=== PATIENT | female | born 1965 | race Caucasian/White ===

== ENCOUNTER 2019-12-21 08:49 | Outpatient (CLI) | payer OTHER, SELFPAY ==
--- NOTE | 2020-01-02 13:08 | SLEEP_ITS ---
Basic nocturnal polysomnogram. DATE OF STUDY: 12/21/2019 ORDERING PHYSICIAN: Dr. Earl Bray. REASON FOR THE STUDY: Loud snoring with witnessed apneas. HISTORY: This patient is a 53-year-old female, 66 inches tall, weighing 254 pounds with a body mass index of 41. She has a history of very loud snoring with witnessed apneas. She was tested 10 years ago. There is a family history with her father having sleep apnea. She has used Xanax and other sleeping pills in the past for sleep issues, but not recently. She occasionally awakens from sleep feeling short of breath, rarely feels awake at night with heartburn and belching, frequently snores and it is constantly loud enough that others complain about it. She frequently has trouble sleeping with a cold. She occasionally gasps for breath at night. She occasionally has breathing problems reported to her by others. She does not sweat excessively at night. She occasionally notices her heart pounding irregularly at night. She never falls asleep during the day, never involuntarily, and never while driving. She does not have loss of muscle tone with strong emotion and does not have daytime difficulty due to excessive sleepiness. 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 She does not have paralysis on waking or falling asleep and does not have vivid dreamlike scenes upon awakening or falling asleep. She is never afraid to go to sleep. She constantly has dreams and remembers them. She occasionally has racing thoughts, feelings of sadness, depression, and anxiety. She never has nightmares. She occasionally has muscular tension. She never notices parts of her body jerking and she does not kick at night. She does not have crawly achy feelings in her legs. She rarely has leg pain at night. She rarely has morning jaw pain. She occasionally grinds her teeth at night. She rarely is bothered by pain during the day and is not bothered or awakened by pain at night. She occasionally wakes up feeling stiff in the morning, but does not wake up with sore achy muscles or pain in her neck or spine. She has stomach problems, memory problems, tension headaches, palpitations, and often feels depressed. She goes to bed at 10:30 p.m. on the weekdays and it takes a variable amount of time to fall asleep. She typically wakes twice during the night, might go to the bathroom. She awakens in the morning at 6:45 a.m. During the weekends, she goes to bed at 11 p.m. and wakes at 10 a.m., so she does get recovery sleep. She does take naps. A short nap may be refreshing. She feels better in the mornings than other times of day. MEDICAL COMORBIDITIES: Pulmonary hypertension, diabetes with systemic hypertension, hyperlipidemia associated with diabetes type 2, history of obstructive sleep apnea syndrome, stroke, hypertriglyceridemia, palpitations, morbid obesity. MEDICATIONS: 1. Baby aspirin. 2. Omeprazole. 3. Nifedipine. 4. Sertraline. 5. Atorvastatin. 6. Metformin. 7. Aripiprazole. 8. Lisinopril. 9. Montelukast. HABITS: Never smoked tobacco. She does drink caffeine. She does not drink alcohol. DESCRIPTION OF THE STUDY: On the Burg[place] Sleepiness Scale, her score is 6. This was conducted as a full night basic nocturnal polysomnogram using the [employer] multiple channel system including EOG, EEG, submental EMG, EKG, nasal and oral airflow using thermistors and nasal pressure sensors, chest and abdominal belts, body position data and pulse oximetry. The study was scored using CMS guidelines. Duration of the study was 438.7 minutes. Sleep time was 393.5 minutes. Sleep efficiency was 89.7%. Sleep latency was rather short, 5.9 minutes. REM latency was 244.5 minutes, prolonged. She had 28 awakenings. Sleep architecture showed 9.1% wakefulness after slee
== END 2019-12-21 08:50 | disposition home or self-care (01) ==
PROVIDERS: PCP Family Medicine; Visit Provider Internal Medicine Cardiovascular Disease
DX: G47.33 Obstructive sleep apnea (adult) (pediatric) (principal); E11.9 Type 2 diabetes mellitus without complications; G25.9 Extrapyramidal and movement disorder, unspecified; G47.69 Other sleep related movement disorders; Z68.41 Body mass index [BMI] 40.0-44.9, adult; I10 Essential (primary) hypertension; I27.20 Pulmonary hypertension, unspecified; E78.5 Hyperlipidemia, unspecified
CPT/HCPCS: 95810

== ENCOUNTER 2021-12-12 12:18 | Outpatient (CLI) | payer OTHER, SELFPAY ==
--- NOTE | ~2021-12-12 | XR_ITS ---
XR knee LT min 4V 12/12/2021 12:46 Indication: Left knee pain Procedure: 4 views left knee Comparison: No prior studies for comparison. Findings: Mild tricompartment osteoarthritis. No fracture, subluxation or dislocation. No joint effus ion. No foreign bodies. Impression: 1: Mild osteoarthritis of the left knee. Reviewed, dictated and finalized at location A. ING CLERK Impression: 1: Mild osteoarthritis of the left knee.
== END 2021-12-12 12:19 | disposition home or self-care (01) ==
LOC: ANHIMG 12:23
PROVIDERS: PCP Family Medicine; Visit Provider Nurse Practitioner
DX: M17.12 Unilateral primary osteoarthritis, left knee (principal)
CPT/HCPCS: 73564

== ENCOUNTER → 2022-01-09 00:40 | Outpatient (CLI) | payer OTHER, SELFPAY ==
[2022-01-09 11:53] LABS: SARS-CoV-2 RNA PCR Negative
== END ==
PROVIDERS: PCP Family Medicine; Visit Provider Family Medicine
DX: R68.89 Other general symptoms and signs (principal); Z20.822 Contact with and (suspected) exposure to COVID-19
CPT/HCPCS: C9803; U0003; U0005

== ENCOUNTER 2022-03-29 14:38 | Emergency (ER) | payer OTHER, SELFPAY ==
--- NOTE | 2022-03-29 14:38 | ED.SKABFB ---
HPI - Skin/Abscess/Foreign Bdy General Chief complaint: Skin/Abscess/Foreign Body Stated complaint: bite dc, left eye swollen Time Seen by Provider: 03/29/22 14:38 Source: patient Mode of arrival: ambulatory Limitations: no limitations History of Present Illness HPI narrative: Ms. Da Silva is a 56-year-old female patient presenting to the clinic today stating that she got bit under her left eye and her left eye is swollen. She reports that she did not see an insect bite her however this occurred 9 days ago. She reports that her swelling is getting worse to have an itchy rash. Related Data Home Medications Medication Instructions Recorded Confirmed aripiprazole 5 mg tablet 5 mg PO QHS 07/08/21 03/29/22 aspirin 325 mg tablet 325 mg PO DAILY 07/08/21 03/29/22 fexofenadine 180 mg tablet 180 mg PO DAILY 07/08/21 03/29/22 (Alexandrea Allergy) metformin 500 mg tablet 1,000 mg PO DAILY 07/08/21 03/29/22 montelukast 10 mg tablet 10 mg PO DAILY 07/08/21 03/29/22 omeprazole 40 mg capsule,delayed 20 mg PO DAILY 07/08/21 03/29/22 release sertraline 100 mg tablet 100 mg PO BID 07/08/21 03/29/22 Allergies Allergy/AdvReac Type Severity Reaction Status Date / Time Penicillins Allergy Unknown unknown Verified 03/29/22 14:47 Review of Systems Review of Systems: Pertinent positives per HPI. Patient denies any fever, chills, headache, visual changes, dizziness, cough, runny nose, sore throat, shortness of breath, chest pain, palpitations, nausea, vomiting, diarrhea, constipation, abdominal pain, or any urinary issues. [facility] Past Medical History Medical History Current moderate episode of major depressive disorder without prior episode Essential hypertension History of CVA (cerebrovascular accident) Hyperlipemia Sleep apnea Family History Family History Father Diabetes mellitus Family history of Parkinson's disease, Onset Age: 86 CAD (coronary artery disease) Mother Cerebrovascular accident Social History Social History (Reviewed 03/29/22 @ 14:39 by GAURANG Fink Smoking status: Never smoker Second hand tobacco smoke exposure: No Alcohol intake: never Comments At the time of my signature, I reviewed and agree with the nursing past medical, surgical, social, and family history. There is no relevant family history pertinent to the patient complaint. Exam Narrative: General: Well-developed, well nourished, in no apparent distress Head: Normocephalic, atraumatic. Cardio: Regular rate and rhythm, s1 and s2 normal, no murmur appreciated. Resp: Clear to auscultation bilaterally, no rhonchi, rales, wheezing or rubs. Integumentary: [place], warm, and dry, possible insect bite that has yellowish-brown scabbing to the center with surrounding redness and swelling around the periorbital area and left upper cheek. Tender to palpation with mild induration. No abscess formation palpable. Course Course Emergency Course: Portions of this record may have been created with voice recognition software. Level of Care: Express Care Visit Vital Signs Vital signs: Vital signs reviewed MDM - Skin/Abscess/Foreign Bdy MDM Narrative Medical decision making narrative: At the time of visit patient is resting comfortably on the exam table. I suspect patient has a allergic reaction to an insect bite to the left cheek/periorbital area. However since this is been ongoing for 8 days and she has edema around the orbit I want to treat for secondary infection and give her a prescription for doxycycline and prednisone. Supportive measures were discussed with the patient she voiced understanding of discharge instructions and agrees to the treatment plan. Differential Diagnosis Differential diagnosis: Likely insect bites and other (Allergic reaction to insect bite, skin infection, periorbital
[2022-03-29 14:41] VITALS: BP 108/58; PULSE 78; RESP 18; TEMP 36.5; O2SAT 99
== END 2022-03-29 14:56 | disposition home or self-care (01) ==
PROVIDERS: Emergency Provider Nurse Practitioner Family
DX: S00.262A Insect bite (nonvenomous) of left eyelid and periocular area, initial encounter (principal); W57.XXXA Bitten or stung by nonvenomous insect and other nonvenomous arthropods, initial encounter; I10 Essential (primary) hypertension; E78.5 Hyperlipidemia, unspecified; G47.30 Sleep apnea, unspecified; Z86.73 Personal history of transient ischemic attack (TIA), and cerebral infarction without residual deficits; F32.9 Major depressive disorder, single episode, unspecified
CPT/HCPCS: 99213; G0463

== ENCOUNTER 2022-04-20 07:38 | Outpatient (RCR) | payer OTHER, SELFPAY ==
[2022-04-13 13:11] VITALS: BMI 38.9
== END 2022-06-28 08:27 | disposition home or self-care (01) ==
LOC: ANHWOC 07:38
PROVIDERS: PCP Family Medicine; Visit Provider Nurse Practitioner
DX: L03.211 Cellulitis of face (principal); S01.402D Unspecified open wound of left cheek and temporomandibular area, subsequent encounter
CPT/HCPCS: 99211; 99213; A9270; G0463

== ENCOUNTER 2022-06-17 15:12 | Emergency (ER) | payer OTHER, SELFPAY ==
[2022-06-17 15:25] VITALS: BP 109/73; PULSE 81; RESP 16; TEMP 37.2; O2SAT 98
[2022-06-17 15:32] VITALS: BP 109/73; PULSE 81; RESP 16; TEMP 37.2; O2SAT 98
--- NOTE | 2022-06-17 15:32 | ED.GENADULT ---
HPI - General Adult General Chief complaint: Upper Respiratory Infection Stated complaint: congestion, runny nose, coughing phlem History of Present Illness HPI narrative: Mrs Da Silva is a 56 y/o female. PMHx GERD, HTN, Dyslipidemia, DM II. Presents to [facility] today with acute complaints of nasal congestion, maxillary facial pressure, throat 'irritated', as well as productive cough for the past 3 days. No fever. No dysphagia or drooling. No chest pain, palpitations, wheezing, dyspnea. 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 She is without additional acute c/o upon PE. Related Data Home Medications Medication Instructions Recorded Confirmed aspirin 325 mg tablet 325 mg PO DAILY 07/08/21 04/13/22 fexofenadine 180 mg tablet 180 mg PO DAILY 07/08/21 04/13/22 (Alexandrea Allergy) metformin 500 mg tablet 1,000 mg PO DAILY 07/08/21 04/13/22 montelukast 10 mg tablet 10 mg PO DAILY 07/08/21 04/13/22 omeprazole 40 mg capsule,delayed 20 mg PO DAILY 07/08/21 04/13/22 release sertraline 100 mg tablet 100 mg PO BID 07/08/21 04/13/22 aripiprazole 5 mg tablet 15 mg PO QHS 04/02/22 04/13/22 fluoxetine 40 mg capsule mg 06/17/22 Allergies Allergy/AdvReac Type Severity Reaction Status Date / Time Penicillins Allergy Unknown unknown Verified 06/17/22 15:22 Review of Systems Review of Systems: CONSTITUTIONAL: Denies fever, chills, sweats. EYES: Denies visual changes, redness, discharge. ENT: Positive rhinorrhea, congestion. No sore throat, otalgia. CARDIOVASCULAR: Denies chest pain, palpitations, edema. RESPIRATORY: Denies dyspnea, wheezing. Positive cough GASTROINTESTINAL: Denies abdominal pain, nausea, vomiting, diarrhea. GENITOURINARY: Denies dysuria, hematuria, abnormal discharge SKIN: Denies rash or itching. MUSCULOSKELETAL: Denies acute back pain, joint pain, or myalgia. NEUROLOGIC: Denies numbness, or focal weakness. PSYCHIATRIC: Denies anxiety or depression. PMFSH Past Medical History Medical History Current moderate episode of major depressive disorder without prior episode Essential hypertension History of CVA (cerebrovascular accident) Hyperlipemia Sleep apnea Family History Family History Father Diabetes mellitus Family history of Parkinson's disease, Onset Age: 86 CAD (coronary artery disease) Mother Cerebrovascular accident Social History Social History Smoking status: Never smoker Second hand tobacco smoke exposure: No Alcohol intake: never Exam Narrative: GENERAL: This is a well-nourished, well-developed adult, in no apparent distress. HEAD: normocephalic. EYES: PERRL. Sclera clear/white. EARS: External ears normal, auditory canals clear and without drainage, TMs normal. NOSE: External nose normal. Positive Rhinorrhea, purulent nasal discharge, maxillary pressure. No obstruction. THROAT: Mucous membranes moist, posterior pharynx clear. No exudates. NECK: Neck supple, non-tender without lymphadenopathy, masses or thyromegaly. CARDIOVASCULAR: Regular rate and rhythm without murmurs, gallops, or rubs. RESPIRATORY: Breath sounds equal bilaterally. No wheezes, rales. + Rhonchi, cleared w/cough. GASTROINTESTINAL: Abdomen soft, non-tender, nondistended. Bowel sounds are active. No guarding. SKIN: warm, intact with no suspicious lesions or rash, good texture and turgor. NEURO: Alert, active, and age appropriate. No focal neurologic deficits. EXTREMITIES: Negative. Course Course Level of Care: Express Care Visit Vital Signs Vital signs: Vital Signs Temperature 37.2 C 06/17/22 15:25 Pulse Rate 81 06/17/22 15:25 Respiratory Rate 16 0
== END 2022-06-17 15:42 | disposition home or self-care (01) ==
PROVIDERS: Emergency Provider Nurse Practitioner Adult Health; PCP Family Medicine
DX: J06.9 Acute upper respiratory infection, unspecified (principal); J40 Bronchitis, not specified as acute or chronic; I10 Essential (primary) hypertension; E78.5 Hyperlipidemia, unspecified; G47.30 Sleep apnea, unspecified; Z86.73 Personal history of transient ischemic attack (TIA), and cerebral infarction without residual deficits; F32.9 Major depressive disorder, single episode, unspecified; K21.9 Gastro-esophageal reflux disease without esophagitis; E11.9 Type 2 diabetes mellitus without complications; Z79.84 Long term (current) use of oral hypoglycemic drugs; Z79.82 Long term (current) use of aspirin
CPT/HCPCS: 99213; G0463

== ENCOUNTER 2022-08-23 12:37 | Outpatient (CLI) | payer OTHER, SELFPAY ==
[2022-08-23 19:26] LABS: Iron 80 ug/dL (37-170)
[2022-08-23 19:36] LABS: Percent Iron Saturation 23 % (20-50)
[2022-08-23 19:50] LABS: Basophils Percent Auto 0.4 % (0.2-1.2); Eosinophils Percent Auto 0.3 % (0-4.4); Hematocrit 43.8 % (37.0-47.0); Hemoglobin 13.9 g/dL (12.0-15.0); Immature Granulocyte Absolute 0.03 K/mm3 (0.00-0.031); Immature Granulocyte Percent A 0.3 % (0-0.5); Lymphocytes Absolute Auto 1.55 K/mm3 (0.9-3.2); Lymphocytes Percent Auto 16.7 % (18.3-44.2); Mean Corpuscular HGB Conc 31.7 g/dl (32-36); Mean Corpuscular Hemoglobin 29.9 pg (26-34); Mean Corpuscular Volume 94.2 fl (80-100); Mean Platelet Volume 11.7 fl (7.4-10.4); Monocytes Absolute Auto 0.4 K/mm3 (0.1-0.6); Monocytes Percent Auto 4.4 % (2.6-8.5); Neutrophils Absolute Auto 7.2 K/mm3 (1.3-6.7); Neutrophils Percent Auto 77.9 % (45.5-73.1); Platelet Count Result 230 k/mm3 (150-375); Red Blood Count 4.65 M/mm3 (4.2-5.4); Red Cell Distribution Width 13.4 % (11.5-14.5); White Blood Count 9.3 K/mm3 (4.5-10.0)
[2022-08-23 19:56] LABS: Vitamin D 25 Hydroxy 22.6 ng/mL
[2022-08-25 10:47] LABS: Thyroid Stimulating Hormone Reflex 0.955 uIU/mL (0.465-4.68)
== END 2022-08-23 12:38 | disposition home or self-care (01) ==
LOC: ANHGOSHLAB 12:39
PROVIDERS: PCP Family Medicine; Visit Provider Nurse Practitioner
DX: R53.83 Other fatigue (principal); E53.8 Deficiency of other specified B group vitamins; E55.9 Vitamin D deficiency, unspecified; E11.9 Type 2 diabetes mellitus without complications
CPT/HCPCS: 36415; 82306; 82607; 82728; 83036; 83540; 83550; 84443; 85025

== ENCOUNTER 2022-11-11 15:29 | Emergency (ER) | payer OTHER, SELFPAY ==
[2022-11-11 15:35] VITALS: BP 134/79; PULSE 95; RESP 16; TEMP 36.2; O2SAT 98
--- NOTE | 2022-11-11 15:36 | ED.EAR ---
HPI - Ear Problem General Chief complaint: Ear Stated complaint: R EARACHE Time Seen by Provider: 11/11/22 15:36 Source: patient and RN notes reviewed History of Present Illness HPI Narrative: Patient is a 56-year-old female who presents to the Urgent Care with complaints of right ear pain. Patient states that it started at least 1 week ago and the doctor at her place of employment prescribed her cefdinir. Patient states that she still having stuffiness and pain in the right ear. Patient has been taking Alexandrea and Flonase. Denies any fever or other upper respiratory complaints. No acute distress noted. Patient aware of the plan of care. Some parts of this dictation were generated by voice recognition software and may contain typographical and/or grammatical inaccuracies. Related Data Home Medications Medication Instructions Recorded Confirmed aspirin 325 mg tablet 325 mg PO DAILY 07/08/21 08/24/22 fexofenadine 180 mg tablet 180 mg PO DAILY 07/08/21 08/24/22 (Alexandrea Allergy) montelukast 10 mg tablet 10 mg PO DAILY 07/08/21 08/24/22 omeprazole 40 mg capsule,delayed 20 mg PO DAILY 07/08/21 08/24/22 release fluoxetine 40 mg capsule 40 mg PO DAILY 06/17/22 08/24/22 aripiprazole 15 mg tablet mg 11/11/22 Allergies Allergy/AdvReac Type Severity Reaction Status Date / Time Penicillins Allergy Unknown unknown Verified 11/11/22 15:34 Review of Systems Review of Systems: CONSTITUTIONAL: Denies fever, chills, or sweats. EYES: Denies visual changes, redness, or discharge. ENT: Denies rhinorrhea, congestion, sore throat. Reports of right otalgia CARDIOVASCULAR: Denies chest pain, palpitations, or edema. RESPIRATORY: Denies cough or dyspnea. GASTROINTESTINAL: Denies abdominal pain, nausea, vomiting, or diarrhea. GENITOURINARY: Denies dysuria or hematuria. SKIN: Denies rash or itching. MUSCULOSKELETAL: Denies back pain, joint pain, or myalgia. NEUROLOGIC: Denies headache, numbness, or weakness. All other systems reviewed are negative, except as documented in HPI. [facility] Past Medical History Medical History Depression Essential hypertension History of CVA (cerebrovascular accident) Hyperlipemia Sleep apnea Family History Family History Father Diabetes mellitus Family history of Parkinson's disease, Onset Age: 86 CAD (coronary artery disease) Mother Cerebrovascular accident Social History Social History (Updated 11/04/22 @ 14:06 by Eli Roque MA) Smoking status: Former smoker Tobacco type: cigarettes Second hand tobacco smoke exposure: No Alcohol intake: never Substance use: never Substance use type: does not use Lack of Transportation: No Lack of Food: Never True Current Housing: I Have Housing Concerned About Future Housing: No Difficulty Paying Gas/Electric Bills: No Difficulty Paying for Meds: No Currently Unemployed: No Education: Master's Degree or Higher Difficulty w/ Childcare or Family Care: No Living arrangements: with family Additional living arrangements comments: Mother Occupation/Education: occupation 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 There is no relevant family history pertinent to the patient complaint. Exam Narrative: GENERAL: This is a well-nourished, well-developed patient, in no apparent distress. HEAD: normocephalic, atraumatic. EYES: PERRL. Sclera clear/white. Vision is grossly intact. EARS: External ears normal, auditory canals clear and without drainage, TMs normal without perforation. Hearing grossly intact. NOSE: External nose normal with no obvious nasal discharge, nares without
== END 2022-11-11 15:58 | disposition home or self-care (01) ==
PROVIDERS: Emergency Provider Nurse Practitioner Family; PCP Family Medicine
DX: H92.01 Otalgia, right ear (principal); I10 Essential (primary) hypertension; E78.5 Hyperlipidemia, unspecified; F32.A Depression, unspecified; Z79.82 Long term (current) use of aspirin; Z87.891 Personal history of nicotine dependence; Z86.73 Personal history of transient ischemic attack (TIA), and cerebral infarction without residual deficits
CPT/HCPCS: 99211; G0463

== ENCOUNTER 2022-12-11 10:51 | Emergency (ER) | payer OTHER, SELFPAY ==
--- NOTE | 2022-12-11 10:59 | ED.EAR ---
HPI - Ear Problem General Chief complaint: Ear Stated complaint: EARACHE Time Seen by Provider: 12/11/22 11:07 Source: patient and RN notes reviewed Mode of arrival: ambulatory Limitations: no limitations History of Present Illness HPI Narrative: 56-year-old female presents with concern for left earache. She reports she has had an earache for about a month, she was seen a month ago for an earache that was worse on the right. Reports that has improved. She reports intermittent nasal congestion and rhinorrhea over the month. Patient is a poor historian. She reports she has been taking Alexandrea and Flonase. She denies fever, aches, chills, sweats, sore throat. She denies known sick contacts MD Complaint: ear pain Related Data Home Medications Medication Instructions Recorded Confirmed aspirin 325 mg tablet 325 mg PO DAILY 07/08/21 12/11/22 fexofenadine 180 mg tablet 180 mg PO DAILY 07/08/21 12/11/22 (Alexandrea Allergy) montelukast 10 mg tablet 10 mg PO DAILY 07/08/21 12/11/22 omeprazole 40 mg capsule,delayed 20 mg PO DAILY 07/08/21 12/11/22 release fluoxetine 40 mg capsule 40 mg PO DAILY 06/17/22 12/11/22 aripiprazole 15 mg tablet 15 mg PO USEASDIRECTD 11/11/22 12/11/22 Allergies Allergy/AdvReac Type Severity Reaction Status Date / Time Penicillins Allergy Unknown unknown Verified 11/11/22 15:34 Review of Systems Review of Systems: CONSTITUTIONAL: Denies malaise, chills, sweats, or fever. EYES: Denies visual changes, redness, or discharge. ENT: Denies intermittent rhinorrhea, congestion. Denies sinus pain, and sore throat. Reports left ear pain CARDIOVASCULAR: Denies chest pain, palpitations, or edema. RESPIRATORY: Denies cough. Denies dyspnea. GASTROINTESTINAL: Denies abdominal pain, nausea, vomiting, diarrhea SKIN: Denies rash or itching. MUSCULOSKELETAL: Denies myalgia. NEUROLOGIC: Denies headache. All systems reviewed & are unremarkable except as noted in HPI and below PMFSH Past Medical History Medical History Depression Essential hypertension History of CVA (cerebrovascular accident) Hyperlipemia Sleep apnea Family History Family History Father Diabetes mellitus Family history of Parkinson's disease, Onset Age: 86 CAD (coronary artery disease) Mother Cerebrovascular accident Social History Social History (Updated 11/04/22 @ 14:06 by Eli Roque MA) Smoking status: Former smoker Tobacco type: cigarettes Second hand tobacco smoke exposure: No Alcohol intake: never Substance use: never Substance use type: does not use Lack of Transportation: No Lack of Food: Never True Current Housing: I Have Housing Concerned About Future Housing: No Difficulty Paying Gas/Electric Bills: No Difficulty Paying for Meds: No Currently Unemployed: No Education: Master's Degree or Higher Difficulty w/ Childcare or Family Care: No Living arrangements: with family Additional living arrangements comments: Mother Occupation/Education: occupation 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 There is no relevant family history pertinent to the presenting complaint Exam Narrative: GENERAL: Well-appearing, well-nourished, and in no acute distress. HEAD: Normocephalic EYES: PERRLA, conjunctivae clear ENT: Nares clear, turbinates edematous, clear discharge. Mucous membranes moist. TM pearly clarke with dull light reflex left; no tragal tenderness. Oropharynx not erythematous without lesions. Tonsils not enlarged and without exudate, no drooling, no hoarseness, no trismus, uvula midline. NECK: Supple. No lymphadenopathy CHEST: Clear to auscultation, breath sounds
[2022-12-11 11:01] VITALS: BP 112/72; PULSE 72; RESP 16; TEMP 36.6; O2SAT 99
== END 2022-12-11 11:18 | disposition home or self-care (01) ==
PROVIDERS: Emergency Provider Nurse Practitioner; PCP Nurse Practitioner
DX: H69.92 Unspecified Eustachian tube disorder, left ear (principal); Z87.891 Personal history of nicotine dependence; I10 Essential (primary) hypertension; E78.5 Hyperlipidemia, unspecified; F32.A Depression, unspecified; Z86.73 Personal history of transient ischemic attack (TIA), and cerebral infarction without residual deficits; Z79.82 Long term (current) use of aspirin
CPT/HCPCS: 99213; G0463

== ENCOUNTER 2022-12-14 19:29 | Emergency (ER) | payer OTHER, SELFPAY ==
[2022-12-14 19:43] VITALS: BP 124/71; PULSE 72; RESP 17; TEMP 36.7; O2SAT 100
[2022-12-14 20:46] LABS: Basophils Percent Auto 0.2 % (0.2-1.2); Eosinophils Percent Auto 0.1 % (0-4.4); Hematocrit 41.1 % (37.0-47.0); Hemoglobin 13.4 g/dL (12.0-15.0); Immature Granulocyte Absolute 0.04 K/mm3 (0.00-0.031); Immature Granulocyte Percent A 0.4 % (0-0.5); Lymphocytes Absolute Auto 0.88 K/mm3 (0.9-3.2); Lymphocytes Percent Auto 9.4 % (18.3-44.2); Mean Corpuscular HGB Conc 32.6 g/dl (32-36); Mean Corpuscular Hemoglobin 30.3 pg (26-34); Mean Platelet Volume 10.6 fl (7.4-10.4); Monocytes Absolute Auto 0.3 K/mm3 (0.1-0.6); Monocytes Percent Auto 2.9 % (2.6-8.5); Neutrophils Absolute Auto 8.1 K/mm3 (1.3-6.7); Platelet Count Result 267 k/mm3 (150-375); Red Blood Count 4.42 M/mm3 (4.2-5.4); Red Cell Distribution Width 13.8 % (11.5-14.5); White Blood Count 9.3 K/mm3 (4.5-10.0)
--- NOTE | 2022-12-14 20:49 | ED.PSYCH ---
HPI - Psych General Chief Complaint: Psychiatric Symptoms <Anastasia Zaragoza PA-C - Last Filed: 12/15/22 02:37> Stated Complaint: SI <Anastasia Zaragoza PA-C - Last Filed: 12/15/22 02:37> Time Seen by Provider: 12/14/22 19:42 <INÉS Rodriguez Last Filed: 12/15/22 02:37> Source: patient <INÉS Rodriguez Last Filed: 12/15/22 02:37> Mode of arrival: ambulatory <INÉS Rodriguez Last Filed: 12/15/22 02:37> Limitations: no limitations <Anastasia Zaragoza PA-C - Last Filed: 12/15/22 02:37> History of Present Illness HPI Narrative: Patient is 56-year-old female who presents to the ED with report of suicidal ideation. Patient reports she has had depression for the last 1 year. She does also have a history of anxiety. She is currently on Prozac and Xanax and sees a psychiatrist, Dr. Lo, regularly. She saw her psychiatrist today who recommended potential inpatient versus outpatient treatment at [facility]. Patient contacted the hospital today. She admitted to having suicidal ideation, with a vague plan to overdose on her home medications. PD and EMS was then notified to bring patient here. Patient does report having intermittent suicidal ideation over the last 1 month. 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 She states she gave her 1 year notice recently which did relieve some of her anxiety, but brought on new anxiety about having to find another job. Patient reports occasional homicidal thoughts against her mother. She does live with her mother and is her primary caregiver. Patient denies any recent cough or cold symptoms, fevers, chest pain, shortness of breath, auditory or visual hallucinations. <Anastasia Zaragoza PA-C - Last Filed: 12/15/22 02:37> Related Data Home Medications: Home Medications Medication Instructions Recorded Confirmed aspirin 325 mg tablet 325 mg PO DAILY 07/08/21 12/11/22 fexofenadine 180 mg tablet 180 mg PO DAILY 07/08/21 12/11/22 (Alexandrea Allergy) montelukast 10 mg tablet 10 mg PO DAILY 07/08/21 12/11/22 omeprazole 40 mg capsule,delayed 20 mg PO DAILY 07/08/21 12/11/22 release fluoxetine 40 mg capsule 40 mg PO DAILY 06/17/22 12/11/22 aripiprazole 15 mg tablet 15 mg PO USEASDIRECTD 11/11/22 12/11/22 <Anastasia Zaragoza PA-C - Last Filed: 12/15/22 02:37> Allergies/Adverse Reactions: Allergies Allergy/AdvReac Type Severity Reaction Status Date / Time Penicillins Allergy Unknown unknown Verified 12/14/22 19:47 <Anastasia Zaragoza PA-C - Last Filed: 12/15/22 02:37> Review of Systems Review of Systems: CONSTITUTIONAL: Denies fever, chills, or sweats. CARDIOVASCULAR: Denies chest pain. RESPIRATORY: Denies dyspnea. GASTROINTESTINAL: Denies abdominal pain, nausea, vomiting. GENITOURINARY: Denies dysuria or hematuria. NEUROLOGIC: Denies headache, numbness, or weakness. PSYCHIATRIC: See HPI. <Anastasia Zaragoza PA-C - Last Filed: 12/15/22 02:37> All systems reviewed & are unremarkable except as noted in HPI and below <Anastasia Zaragoza PA-C - Last Filed: 12/15/22 02:37> [facility] Past Medical History Medical History: Medical History (Updated 12/15/22 @ 02:29 by Anatsasia Zaragoza PA-C) Anxiety Depression Essential hypertension History of CVA (cerebrovascular accident) Hyperlipemia Sleep apnea Type 2 diabetes mellitus with other circulatory complications <Anastasia Zaragoza PA-C - Last Filed: 12/15/22 02:37> Surgical History Surgical History: Surgical History (Updated 12/14/22 @ 21:19 by Anastasia Zaragoza PA-C) No pertinent past surgical history <Anastasia Zaragoza PA-C - Last Filed: 12/15/22 02:37> Family History Family History: Family History Father Diabetes mellitus Family history of Parkinson's disease, Onset Age
[2022-12-14 20:57] LABS: Acetaminophen < 10 ug/mL (10-30); Ethanol < 10 mg/dL (<10); Salicylate < 1.0 mg/dL (2-20)
[2022-12-14 20:58] LABS: Alanine Aminotransferase 28 U/L (6-35); Albumin Level 4.1 g/dL (3.5-5.1); Alkaline Phosphatase 105 U/L (38-126); Anion Gap 5 mmol/L (8-16); Aspartate Amino Transferase 42 U/L (14-36); Bilirubin,Total 0.6 mg/dL (0.2-1.3); Blood Urea Nitrogen 30 mg/dL (7-17); Calcium 8.8 mg/dL (8.4-10.2); Carbon Dioxide 26 mmol/L (22-30); Chloride 105 mmol/L (98-107); Estimated CRCL calculation 53 ml/min; Estimated Glomerular Filt Rate 51; Glucose 134 mg/dL (65-110); Potassium 4.7 mmol/L (3.4-5.0); Sodium 136 mmol/L (137-145)
[2022-12-14 21:04] LABS: Amphetamine Screen Urine Negative (Negative); Barbiturate Screen Urine Negative (Negative); Benzodiazepines Screen Urine Negative (Negative); Cannabinoid Screen Urine Negative (Negative); Cocaine Screen Urine Negative (Negative); Methadone Screen Urine Negative (Negative); Opiate Screen Urine Negative (Negative); Phencyclidine Screen Urine Negative (Negative)
[2022-12-14 21:23] LABS: Influenza A QL RT-PCR Negative (Negative); Influenza B QL RT-PCR Negative (Negative); SARS-CoV-2 RNA PCR Negative
[2022-12-14 21:28] LABS: Thyroid Stimulating Hormone 0.802 uIU/mL (0.465-4.680)
[2022-12-14 22:13] LABS: Appearance Urine Clear (Clear); Bilirubin Urine Negative (Negative); Blood Urine Negative (Negative); Color Urine Yellow (Yellow); Glucose Urine UA Negative (Negative); Ketones Urine Negative (Negative); Leukocyte Esterase Ur Negative LEU/UL (Negative); Nitrate Urine Negative (Negative); Protein Urine Negative (Negative); Urobilinogen Urine 0.2 mg/dL (<2.0)
[2022-12-14 22:26] LABS: Add Urine Microscopic? NO
--- NOTE | 2022-12-14 22:34 | PC.NURSE ---
Crisis called at this time. heat treat worker will come and assess patient.
--- NOTE | 2022-12-15 00:16 | PC.NURSE ---
crisis at bedside at this time.
--- NOTE | 2022-12-15 01:47 | PC.NURSE ---
Per Anastasia, Provider, patient does not need sitter due to low risk suicide scale. real estate closing coordinatorNANCI meza.
[2022-12-15 02:42] VITALS: BP 135/73; PULSE 78; RESP 17; O2SAT 100
== END 2022-12-15 02:44 | disposition home or self-care (01) ==
PROVIDERS: Emergency Provider Physician Assistant; PCP Nurse Practitioner
DX: R45.851 Suicidal ideations (principal); F32.A Depression, unspecified; Z20.822 Contact with and (suspected) exposure to COVID-19; F41.9 Anxiety disorder, unspecified; E11.59 Type 2 diabetes mellitus with other circulatory complications; E11.22 Type 2 diabetes mellitus with diabetic chronic kidney disease; I12.9 Hypertensive chronic kidney disease with stage 1 through stage 4 chronic kidney disease, or unspecified chronic kidney disease; N18.9 Chronic kidney disease, unspecified; G47.30 Sleep apnea, unspecified; Z86.73 Personal history of transient ischemic attack (TIA), and cerebral infarction without residual deficits; Z87.891 Personal history of nicotine dependence; Z79.82 Long term (current) use of aspirin; Z79.84 Long term (current) use of oral hypoglycemic drugs
CPT/HCPCS: 36415; 80053; 80307; 81003; 84443; 85025; 87636; 99284

== ENCOUNTER 2022-12-15 19:39 | Emergency (ER) | payer OTHER, SELFPAY ==
[2022-12-15 19:59] VITALS: BP 133/83; PULSE 83; RESP 16; TEMP 35.8; O2SAT 100
[2022-12-15 20:11] VITALS: BP 133/82; PULSE 83; RESP 16; TEMP 35.8; O2SAT 100
[2022-12-15 21:06] LABS: Basophils Percent Auto 0.5 % (0.2-1.2); Eosinophils Absolute Auto 0.1 K/mm3 (0-0.3); Hematocrit 43.5 % (37.0-47.0); Hemoglobin 14.1 g/dL (12.0-15.0); Immature Granulocyte Absolute 0.03 K/mm3 (0.00-0.031); Immature Granulocyte Percent A 0.3 % (0-0.5); Lymphocytes Absolute Auto 2.34 K/mm3 (0.9-3.2); Lymphocytes Percent Auto 26.7 % (18.3-44.2); Mean Corpuscular HGB Conc 32.4 g/dl (32-36); Mean Corpuscular Hemoglobin 30.1 pg (26-34); Mean Corpuscular Volume 92.9 fl (80-100); Mean Platelet Volume 10.4 fl (7.4-10.4); Monocytes Absolute Auto 0.5 K/mm3 (0.1-0.6); Neutrophils Absolute Auto 5.8 K/mm3 (1.3-6.7); Neutrophils Percent Auto 65.5 % (45.5-73.1); Platelet Count Result 283 k/mm3 (150-375); Red Blood Count 4.68 M/mm3 (4.2-5.4); Red Cell Distribution Width 14.1 % (11.5-14.5); White Blood Count 8.8 K/mm3 (4.5-10.0)
--- NOTE | 2022-12-15 21:15 | ED.GENADULT ---
HPI - General Adult General Chief complaint: Psychiatric Symptoms <Branden Ray MD - Last Filed: 12/17/22 03:04> Stated complaint: SI <Branden Ray MD - Last Filed: 12/17/22 03:04> Time Seen by Provider: 12/15/22 20:14 <Branden Ray MD - Last Filed: 12/17/22 03:04> History of Present Illness HPI narrative: this is a 56-year-old female with a history of OCD and depression presenting to ED for psychiatric eval. Patient was seen in our hospital yesterday for depression and suicidal ideation. She has ventrally discharged with a safety contract. She went home and called her psychiatrist and told them that she was going to hurt herself. Police were called and she was brought to the hospital. At this time she is denying suicidal ideation although she says she has the urge to herself she will not act on it. She denies homicidal ideation or hallucinations. She is compliant with her psych medications. She denies use of drugs or alcohol. She has no physical complaints this time. Patient has involuntary admission paperwork completed by police. <Branden Ray MD - Last Filed: 12/17/22 03:04> Related Data Home medications: Home Medications Medication Instructions Recorded Confirmed aspirin 325 mg tablet 325 mg PO DAILY 07/08/21 12/16/22 fexofenadine 180 mg tablet 180 mg PO DAILY 07/08/21 12/16/22 (Alexandrea Allergy) montelukast 10 mg tablet 10 mg PO DAILY 07/08/21 12/16/22 omeprazole 40 mg capsule,delayed 20 mg PO DAILY 07/08/21 12/16/22 release fluoxetine 40 mg capsule 40 mg PO DAILY 06/17/22 12/16/22 aripiprazole 15 mg tablet 15 mg PO USEASDIRECTD 11/11/22 12/16/22 <Branden Ray MD - Last Filed: 12/17/22 03:04> Allergies/adverse reactions: Allergies Allergy/AdvReac Type Severity Reaction Status Date / Time Penicillins Allergy Unknown unknown Verified 12/14/22 19:47 <Branden Ray MD - Last Filed: 12/17/22 03:04> [facility] Past Medical History Medical History: Medical History Anxiety Depression Essential hypertension History of CVA (cerebrovascular accident) Hyperlipemia Sleep apnea Type 2 diabetes mellitus with other circulatory complications <Branden Ray MD - Last Filed: 12/17/22 03:04> Surgical History Surgical History: Surgical History No pertinent past surgical history <Branden Ray MD - Last Filed: 12/17/22 03:04> Family History Family History: Family History Father Diabetes mellitus Family history of Parkinson's disease, Onset Age: 86 CAD (coronary artery disease) Mother Cerebrovascular accident <Branden Ray MD - Last Filed: 12/17/22 03:04> Social History Social History: Social History Smoking status: Former smoker Tobacco type: cigarettes Second hand tobacco smoke exposure: No Alcohol intake: never Substance use: never Substance use type: does not use Lack of Transportation: No Lack of Food: Never True Current Housing: I Have Housing Concerned About Future Housing: No Difficulty Paying Gas/Electric Bills: No Difficulty Paying for Meds: No Currently Unemployed: No Education: Master's Degree or Higher Difficulty w/ Childcare or Family Care: No Living arrangements: with family Additional living arrangements comments: Mother Occupation/Education: occupation 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 Head: atraumatic. EYES: EOMI, NOSE: Atraumatic NECK: Trachea midline RESPIRATORY: No increased rate of breathing CARDIOVASCULAR: RRR, A
[2022-12-15 21:16] LABS: Ethanol < 10 mg/dL (<10)
[2022-12-15 21:17] LABS: Alanine Aminotransferase 27 U/L (6-35); Albumin Level 4.1 g/dL (3.5-5.1); Alkaline Phosphatase 103 U/L (38-126); Anion Gap 6 mmol/L (8-16); Aspartate Amino Transferase 33 U/L (14-36); Bilirubin,Total 0.6 mg/dL (0.2-1.3); Blood Urea Nitrogen 32 mg/dL (7-17); Calcium 8.9 mg/dL (8.4-10.2); Carbon Dioxide 29 mmol/L (22-30); Chloride 105 mmol/L (98-107); Estimated CRCL calculation 53 ml/min; Estimated Glomerular Filt Rate 46; Glucose 105 mg/dL (65-110); Potassium 4.4 mmol/L (3.4-5.0); Sodium 140 mmol/L (137-145)
[2022-12-15 21:37] LABS: Amphetamine Screen Urine Negative (Negative); Barbiturate Screen Urine Negative (Negative); Benzodiazepines Screen Urine Negative (Negative); Cannabinoid Screen Urine Negative (Negative); Cocaine Screen Urine Negative (Negative); Methadone Screen Urine Negative (Negative); Opiate Screen Urine Negative (Negative); Phencyclidine Screen Urine Negative (Negative)
[2022-12-15 23:42] LABS: Influenza A QL RT-PCR Negative (Negative); Influenza B QL RT-PCR Negative (Negative); RSV RNA, RT-PCR Negative (Negative); SARS-CoV-2 RNA PCR Negative
--- NOTE | 2022-12-15 23:42 | PC.NURSE ---
Spoke with Kirti at [facility]. Informed she will be on site [facility]
[2022-12-16 06:25] LABS: Pregnancy On Board Control Positive; Urine Pregnancy Test Negative
[2022-12-16 07:13] LABS: Appearance Urine Turbid (Clear); Bacteria Urine None Seen /hpf; Bilirubin Urine Negative (Negative); Blood Urine Negative (Negative); Color Urine Yellow (Yellow); Glucose Urine UA Negative (Negative); Ketones Urine Trace mg/dL (Negative); Leukocyte Esterase Ur Negative LEU/UL (Negative); Nitrate Urine Negative (Negative); Protein Urine Trace mg/dL (Negative); RBC Urine 0-2 /hpf (0-2); Specific Grav Ur 1.026 (1.001-1.035); Squamous Epithelial Cell Urine Occasional /hpf (Few); Urobilinogen Urine 0.2 mg/dL (<2.0); WBC Urine 0-5 /hpf; pH Urine 5.5 (5.0-9.0)
[2022-12-16 07:18] LABS: Add Urine Microscopic? YES
--- NOTE | 2022-12-16 08:23 | PC.NURSE ---
precautionary breakfast tray given to pt
--- NOTE | 2022-12-16 09:00 | PC.NURSE ---
Received call from [facility] that the Inpatient Certification needs to be completed because the original was not detailed enough. Dr. Walsh made aware.
[2022-12-16] MEDS: FLUoxetine HCL 20 MG CAPSULE 40 MG PO (09:54)
[2022-12-16] MEDS: ASPIRIN 325 MG TABLET PO (09:54)
--- NOTE | 2022-12-16 10:03 | PC.NURSE ---
Physician Certification faxed to [facility] as requested. Awaiting response and bed assignment.
[2022-12-16 10:23] VITALS: BP 129/76; PULSE 90; RESP 16; TEMP 36.8; O2SAT 100
--- NOTE | 2022-12-16 10:39 | PC.NURSE ---
[facility] accepted BLS transfer to [place] ETA 12:30 Trip # [phone]
--- NOTE | 2022-12-16 10:40 | PC.NURSE ---
Patient accepted at [facility]. Report called. Awaiting transport at this time. patient remains calm and cooperative with patient sitter at bedside.
--- NOTE | 2022-12-16 10:44 | PC.NURSE ---
[facility] accepted BLS transfer to [place] ETA 11:30 [facility] trip # [phone] cancelled
--- NOTE | 2022-12-16 11:02 | PC.NURSE ---
Patient report given to NANCI Yao. All questions answered and care of patient transferred.
== END 2022-12-16 11:45 ==
PROVIDERS: Emergency Medicine; Emergency Provider Emergency Medicine; PCP Nurse Practitioner
DX: R45.851 Suicidal ideations (principal); Z20.822 Contact with and (suspected) exposure to COVID-19; F42.9 Obsessive-compulsive disorder, unspecified; F32.A Depression, unspecified; I10 Essential (primary) hypertension; E78.5 Hyperlipidemia, unspecified; E11.59 Type 2 diabetes mellitus with other circulatory complications; G47.30 Sleep apnea, unspecified; Z86.73 Personal history of transient ischemic attack (TIA), and cerebral infarction without residual deficits; Z87.891 Personal history of nicotine dependence; Z79.82 Long term (current) use of aspirin; Z79.84 Long term (current) use of oral hypoglycemic drugs
CPT/HCPCS: 36415; 80053; 80307; 81001; 81025; 84443; 85025; 87637; 99285; A9270

== ENCOUNTER 2023-05-25 16:07 | Outpatient (CLI) | payer OTHER, SELFPAY ==
[2023-05-31 09:22] LABS: NIL 0.02; Quantiferon TB Plus, 1T Negative; TB1-NIL <0.00
== END 2023-05-25 16:08 | disposition home or self-care (01) ==
LOC: ANHGOSHLAB 16:08
PROVIDERS: PCP Nurse Practitioner; Visit Provider Family Medicine
DX: Z11.1 Encounter for screening for respiratory tuberculosis (principal)
CPT/HCPCS: 36415; 86480

== ENCOUNTER → 2023-09-07 11:56 | Outpatient (CLI) | payer BC, SELFPAY ==
--- NOTE | ~2023-09-07 | US_ITS ---
Renal-Bladder ultrasound Clinical History: Chronic kidney disease Technique: Real-time sonographic imaging of the kidneys and urinary bladder was performed. Findings: The right kidney measures 9.2 cm in length and the left kidney measures 10.0 cm. There is n o hydronephrosis or renal calculus identified. Renal cortical echogenicity is within normal limits. N o renal mass lesion is identified. The urinary bladder is largely collapsed, limiting evaluation. Impression: Unremarkable ultrasound of the kidneys. Collapsed urinary bladder limits evaluation. Reviewed, dictated and finalized at location M. NT EXECUTIVE Impression: Unremarkable ultrasound of the kidneys. Collapsed urinary bladder limits evaluation.
== END ==
PROVIDERS: PCP Emergency Medicine; Visit Provider Internal Medicine Nephrology
DX: N18.31 Chronic kidney disease, stage 3a (principal)
CPT/HCPCS: 76775

== ENCOUNTER 2023-09-14 01:16 | Day surgery (SDC) | payer BC, SELFPAY ==
--- NOTE | 2023-09-14 08:20 | PM.IMHP ---
H&P: HPI History of Present Illness Date/Time: 09/14/23 08:20 Chief Complaint: Loop recorder explant Narrative: Hannah Da Silva is a [address] Bray. She has history of bilateral strokes in 2017 and has a loop recorder. The battery has been depleted and the patient desires to have the device explanted. She feels well today and has been NPO. The patient also has history of hypertension, hyperlipidemia, diabetes, sleep apnea, anxiety and depression. Review of Systems Constitutional: Constitutional: Denies fever(s) Cardiovascular: Cardiovascular: Denies chest pain, Denies pedal edema, Denies lightheadedness and Denies dyspnea Respiratory: Respiratory: Denies chest congestion and Denies dyspnea Gastrointestinal: Gastrointestinal: Denies abdominal pain and Denies hematochezia Musculoskeletal: Musculoskeletal: Reports no additional musculoskeletal complaints Integumentary/Breasts: Skin/Breast: Reports system reviewed and no additional complaints, except as docu Neurologic: Reports system reviewed and no additional complaints, except as documented and Denies behavioral changes Psychiatric: Psychiatric: Denies behavioral changes [facility] Past Medical History Medical History Anxiety Depression Essential hypertension History of CVA (cerebrovascular accident) Hyperlipemia Sleep apnea Type 2 diabetes mellitus with other circulatory complications Surgical History Surgical History No pertinent past surgical history Family History Family History Father Diabetes mellitus Family history of Parkinson's disease, Onset Age: 86 CAD (coronary artery disease) Mother Cerebrovascular accident Social History Social History Smoking status: Former smoker Tobacco type: cigarettes Second hand tobacco smoke exposure: No Alcohol intake: never Substance use: never Substance use type: does not use Lack of Transportation: No Lack of Food: Never True Current Housing: I Have Housing Concerned About Future Housing: No Difficulty Paying Gas/Electric Bills: No Difficulty Paying for Meds: No Currently Unemployed: No Education: Master's Degree or Higher Difficulty w/ Childcare or Family Care: No Living arrangements: with family Additional living arrangements comments: Mother Occupation/Education: occupation 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 Gender identity (if verbalized by the patient): Female Spiritual care concerns: No Agree to blood products: Yes Meds Home Medications and Allergies Home Medications Medication Instructions Recorded Confirmed Type montelukast 10 mg tablet 10 mg PO DAILY 07/08/21 09/14/23 History omeprazole 40 mg capsule,delayed 40 mg PO DAILY 07/08/21 09/14/23 History release fluoxetine 40 mg capsule 40 mg PO DAILY 06/17/22 09/14/23 History metformin 500 mg tablet 1,000 mg PO DAILY #60 tabs 06/17/23 09/14/23 Rx aripiprazole 15 mg tablet 5 mg PO DAILY 08/01/23 09/14/23 History lisinopril 20 mg tablet 40 mg PO DAILY 08/01/23 09/14/23 History quetiapine 50 mg tablet 50 mg PO DAILY 08/01/23 09/14/23 History aspirin 325 mg tablet 325 mg PO DAILY 09/14/23 09/14/23 History nifedipine 60 mg tablet,extended 60 mg PO DAILY 09/14/23 09/14/23 History release rosuvastatin 20 mg tablet 20 mg PO DAILY 09/14/23 09/14/23 History Allergies Allergy/AdvReac Type Severity Reaction Status Date / Time Penicillins Allergy Unknown unknown Verified 09/14/23 08:56 Exam Const: General: cooperative, healthy appearing and comfortable; No confusion Orientation/consciousness: oriented to person, patient oriented x3 and No confusion HENMT: Mouth: Yes moist mucous membranes Eyes: General: appearance normal, b
[2023-09-14 09:08] VITALS: BP 114/54; PULSE 76; RESP 16; TEMP 36.6; O2SAT 98; BMI 36.9
[2023-09-14 09:18] LABS: Basophils Percent Auto 0.5 % (0.2-1.2); Eosinophils Absolute Auto 0.1 K/mm3 (0-0.3); Eosinophils Percent Auto 0.9 % (0-4.4); Hematocrit 42.9 % (37.0-47.0); Hemoglobin 13.8 g/dL (12.0-15.0); Lymphocytes Absolute Auto 2.38 K/mm3 (0.9-3.2); Mean Corpuscular HGB Conc 32.2 g/dl (32-36); Mean Corpuscular Hemoglobin 28.8 pg (26-34); Mean Corpuscular Volume 89.6 fl (80-100); Mean Platelet Volume 9.7 fl (7.4-10.4); Monocytes Absolute Auto 0.4 K/mm3 (0.1-0.6); Monocytes Percent Auto 5.4 % (2.6-8.5); Neutrophils Absolute Auto 3.6 K/mm3 (1.3-6.7); Neutrophils Percent Auto 56.2 % (45.5-73.1); Platelet Count Result 268 k/mm3 (150-375); Red Blood Count 4.79 M/mm3 (4.2-5.4); Red Cell Distribution Width 13.7 % (11.5-14.5); White Blood Count 6.4 K/mm3 (4.5-10.0)
[2023-09-14 09:27] LABS: Anion Gap 12 mmol/L (8-16); Blood Urea Nitrogen 26 mg/dL (7-17); Calcium 9.7 mg/dL (8.4-10.2); Carbon Dioxide 22 mmol/L (22-30); Chloride 106 mmol/L (98-107); Estimated CRCL calculation 52 ml/min; Estimated Glomerular Filt Rate 42; Glucose 103 mg/dL (65-110); Potassium 4.3 mmol/L (3.4-5.0); Sodium 140 mmol/L (137-145)
--- NOTE | 2023-09-14 10:09 | WPDMODSED ---
Moderate Sedation Note-Pt Data Patient Data Diagnosis: Loop recorder at end life, here for explant Present Complaint: Hannah Da Silva is a [address] Bray.? She has history of bilateral strokes in 2017 and has a loop recorder.? The battery has been depleted and the patient desires to have the device explanted.? She feels well today and has been NPO. The patient also has history of hypertension, hyperlipidemia, diabetes, sleep apnea, anxiety and depression. Procedure to be performed/Plan: Explant of a loop recorder under local anesthesia Possible conscious sedation Allergies Allergy/AdvReac Type Severity Reaction Status Date / Time Penicillins Allergy Unknown unknown Verified 09/14/23 08:56 Home Medications Medication Instructions Recorded Confirmed Type montelukast 10 mg tablet 10 mg PO DAILY 07/08/21 09/14/23 History omeprazole 40 mg capsule,delayed 40 mg PO DAILY 07/08/21 09/14/23 History release fluoxetine 40 mg capsule 40 mg PO DAILY 06/17/22 09/14/23 History metformin 500 mg tablet 1,000 mg PO DAILY #60 tabs 06/17/23 09/14/23 Rx aripiprazole 15 mg tablet 5 mg PO DAILY 08/01/23 09/14/23 History lisinopril 20 mg tablet 40 mg PO DAILY 08/01/23 09/14/23 History quetiapine 50 mg tablet 50 mg PO DAILY 08/01/23 09/14/23 History aspirin 325 mg tablet 325 mg PO DAILY 09/14/23 09/14/23 History nifedipine 60 mg tablet,extended 60 mg PO DAILY 09/14/23 09/14/23 History release rosuvastatin 20 mg tablet 20 mg PO DAILY 09/14/23 09/14/23 History Sedation/Anesthesia: No previous sedation/anesthesia problems (including family history). [facility] Past Medical History Medical History Anxiety Depression Essential hypertension History of CVA (cerebrovascular accident) Hyperlipemia Sleep apnea Type 2 diabetes mellitus with other circulatory complications Surgical History Surgical History No pertinent past surgical history Family History Family History Father Diabetes mellitus Family history of Parkinson's disease, Onset Age: 86 CAD (coronary artery disease) Mother Cerebrovascular accident Social History Social History Smoking status: Former smoker Tobacco type: cigarettes Second hand tobacco smoke exposure: No Alcohol intake: never Substance use: never Substance use type: does not use Lack of Transportation: No Lack of Food: Never True Current Housing: I Have Housing Concerned About Future Housing: No Difficulty Paying Gas/Electric Bills: No Difficulty Paying for Meds: No Currently Unemployed: No Education: Master's Degree or Higher Difficulty w/ Childcare or Family Care: No Living arrangements: with family Additional living arrangements comments: Mother Occupation/Education: occupation 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 Gender identity (if verbalized by the patient): Female Spiritual care concerns: No Agree to blood products: Yes Mod Sed Physical Exam Physical Exam Pre Procedural Exam: Normal: Appearance, Eyes, Ears, Nose, Neck, Throat, Airway, Lungs, Heart Size, Heart Rate, Heart Rhythm, Neuro Exam, Abdomen, Extremities and Skin (Loop recorder site left mid pectoral area is well healed) Hours since solid foods: 12 Hours since liquid intake: 12 Mallampati Classification: class III Internal Medicine - PN: Obj Da Vital Signs Vital Signs: Vital Signs - 24 hr 09/14/23 09:08 Temperature 98 F Pulse Rate 76 Respiratory Rate 16 Blood Pressure 114/54 L Pulse Oximetry 98 Oxygen Delivery Room Air Labs 09/14/23 09:07 09/14/23 09:07 Labs: Laboratory Results - last 24 hr 09/14/23 09:07 WBC 6.4 RBC 4.79 Hgb 13.8 Hct 42.9 MCV 89.6 MCH 28.8 MC
[2023-09-14 11:00] VITALS: BP 131/62; PULSE 68; RESP 16; O2SAT 98
--- NOTE | 2023-09-14 11:00 | PM.OP ---
Procedure Note - Brief Procedure Note - Brief Date of procedure: 09/14/23 Loop recorder at ron Post-op diagnosis: Other (Loop recorder explanted) Surgeon: Natalya Garcia MD Anesthesia: local Findings: Uneventful loop recorder explant under local anesthesia Description of procedure: Uneventful loop recorder explant under local anesthesia Complications: No immediate complications Condition: Stable Disposition: Observation
[2023-09-14 11:15] VITALS: BP 132/64; PULSE 68; RESP 16; O2SAT 99
[2023-09-14 11:30] VITALS: BP 136/70; PULSE 67; RESP 16; O2SAT 98
--- NOTE | 2023-09-14 11:37 | W.PM.PROC2 ---
Procedure Note - Detailed Date of Procedure 09/14/23 Pre-op Diagnosis loop recorder at ron Post-op Diagnosis Other (explanted loop recorder) Procedure Performed Explant of loop recorder under local anesthesia Surgeon Natalya Garcia MD Anesthesia Local Indications Hannah Da Silva is a [address] Bray.? She has history of bilateral strokes in 2017 and has a loop recorder.? The battery has been depleted and the patient desires to have the device explanted.? She feels well today and has been NPO. The patient also has history of hypertension, hyperlipidemia, diabetes, sleep apnea, anxiety and depression. Findings Unremarkable Description of Procedure After informed consent the patient was taken into the medical laboratory manager. The left precordial area was prepped and draped. Anesthesia was obtained using 1% lidocaine. A skin incision was made and carried down to the loop recorder with blunt and sharp dissection. The capsule was incised. The device was grasped with forceps and delivered from the pocket. The pocket was irrigated with sterile saline. Hemostasis was obtained with local compression. The subcutaneous tissues were closed with 2-0 Vicryl suture. A skin adhesive and sterile dressing were applied. The patient tolerated the procedure well. There were no complications. Blood loss was negligible. Estimated Blood Loss 1 (cc) Complications No immediate complications Condition Stable Disposition Observation
== END 2023-09-14 11:40 | disposition home or self-care (01) ==
PROVIDERS: PCP Emergency Medicine; Visit Provider Internal Medicine Cardiovascular Disease
PROC: (CPT 33286; principal; 2023-09-14 10:00)
DX: Z45.09 Encounter for adjustment and management of other cardiac device (principal); I12.9 Hypertensive chronic kidney disease with stage 1 through stage 4 chronic kidney disease, or unspecified chronic kidney disease; E11.22 Type 2 diabetes mellitus with diabetic chronic kidney disease; N18.9 Chronic kidney disease, unspecified; E78.5 Hyperlipidemia, unspecified; G47.30 Sleep apnea, unspecified; F41.9 Anxiety disorder, unspecified; F32.A Depression, unspecified; Z86.73 Personal history of transient ischemic attack (TIA), and cerebral infarction without residual deficits; Z79.84 Long term (current) use of oral hypoglycemic drugs; Z79.82 Long term (current) use of aspirin; Z87.891 Personal history of nicotine dependence
CPT/HCPCS: 33286; 36415; 80048; 85025; J7040

== ENCOUNTER 2023-11-15 09:45 | Outpatient (CLI) | payer BC, SELFPAY ==
--- NOTE | ~2023-11-15 | MM_ITS ---
EXAMINATION: MM screening rah BI w cipriano HISTORY: Screening mammogram TECHNIQUE: Craniocaudal and mediolateral oblique 3-D tomosynthesis images were obtained and synthetic 2-D images were generated. CAD analysis was submitted and interpreted. COMPARISON: No prior mammogram is available for comparison at this institution. BREAST PARENCHYMAL COMPOSITION: There are scattered areas of fibroglandular density. FINDINGS: There is a 2.5 cm or greater long approximately 3.6 mm wide tubular density at the posterio r upper mid to inner left breast, possibly some lymph nodes. Diagnostic left mammogram and left breas t ultrasound examination are recommended. Otherwise no suspicious mass, architectural distortion, malignant calcification, skin thickening or r etraction of either breast is detected. Scattered bilateral benign calcifications. IMPRESSION: 1. Left mammographic asymmetry, posterior mid inner aspect of the left breast 2. Diagnostic left mammogram and left breast ultrasound examination are recommended. BI-RADS Category 0: Incomplete: Needs additional imaging evaluation. Reviewed, dictated and finalized at location A. GER EXPORT IMPRESSION: 1. Left mammographic asymmetry, posterior mid inner aspect of the left breast 2. Diagnostic left mammogram and left breast ultrasound examination are recomme nded. BI-RADS Category 0: Incomplete: Needs additional imaging evaluation.
[2023-11-15 10:34] LABS: Glucose Point of Care 143 mg/dl (65-105)
== END 2023-11-15 09:46 | disposition home or self-care (01) ==
LOC: ANHIMG 09:46
PROVIDERS: PCP Emergency Medicine; Visit Provider Emergency Medicine
DX: Z12.31 Encounter for screening mammogram for malignant neoplasm of breast (principal); R92.8 Other abnormal and inconclusive findings on diagnostic imaging of breast
CPT/HCPCS: 77063; 77067

== ENCOUNTER 2023-12-07 13:47 | Outpatient (CLI) | payer BC, SELFPAY ==
--- NOTE | ~2023-12-07 | DEXA_ITS ---
Bone Density Report Name: OSMAN CHAIREZ Age: 57 Sex: Female Ethnicity: White Date of : 1965 Indication: postmenopausal; screening for osteoporosis; height loss; asthma or emphysema; Referring Provider: PETER RUFFIN Study: Bone densitometry was performed. Exam Date: December 07, 2023 Accession number: [id number] Bone Density: Region BMD T-score Z-score Classification AP Spine(L1-L4) 0.907 -1.3 0.0 Osteopenia Femoral Neck (Left) 0.720 -1.2 0.0 Osteopenia Total Hip (Left) 0.989 0.4 1.2 Normal Femoral Neck (Right) 0.621 -2.1 -0.9 Osteopenia Total Hip (Right) 0.951 0.1 0.9 Normal Total Hip Mean 0.970 0.3 1.1 Normal World Health Organization criteria for BMD impression classify patients as: Normal (T-score at or above -1.0), Osteopenia (T-score between -1.0 and -2.5), or Osteoporosis (T-score at or below -2.5). 10-year Fracture Risk(1): Major Osteoporotic Fracture 7.9% Hip Fracture 0.9% Reported Risk Factors: [place] (), Neck BMD=0.621, BMI=39.0 (1) FRAX(R) Version 3.08. Fracture probability calculated for an untreated patient. Fracture probability may be lower if the patient has received treatment. Clinical Information Provided by Patient: Has the following medical conditions: Asthma or Emphysema Patient maximum height was 66.5 Menopause Age: 45 No regular weight bearing exercise Drinks caffeinated beverages Onset of menses at age 13 Number of children 0 Impression: The patient has low bone mass, based on the Right Femoral Neck T-score. The patient has an estimated ten-year risk of hip fracture of 0.9% and an estimated ten-year risk of major fracture of 7.9%, based on the WHO FRAX algorithm. Discussion: BONE DENSITY IS LOW AT ONE OR MORE SKELETAL SITES. This patient's lowest T-score is low at one or more skeletal sites. It meets the World Health Organization's (WHO) criteria for ?low bone mass? (T-score between -1.0 and -2.5). The patient's 10-year risk of fracture as calculated by FRAX is less than the threshold where pharmacological therapy is recommended by the National Osteoporosis Foundation (NOF). However, all treatment decisions require clinical judgment and consideration of individual patient factors, including patient preferences, comorbidities, previous drug use, risk factors not captured in the FRAX model (e.g., frailty, falls, vitamin D deficiency, increased bone turnover, interval significant decline in bone density) and possible under or overestimation of fracture risk by FRAX. The patient should follow a healthful lifestyle (good nutrition with adequate calcium and vitamin D, and appropriate weight-bearing exercise). Follow-Up: Consider repeating this study in 2 to 3 years to reassess this patient's status, or sooner if there is some new clinic
== END 2023-12-07 13:48 | disposition home or self-care (01) ==
LOC: ANHIMG 13:55
PROVIDERS: PCP Emergency Medicine; Visit Provider Emergency Medicine
DX: Z78.0 Asymptomatic menopausal state (principal); M85.88 Other specified disorders of bone density and structure, other site; M85.852 Other specified disorders of bone density and structure, left thigh; M85.851 Other specified disorders of bone density and structure, right thigh
CPT/HCPCS: 77080

== ENCOUNTER 2024-01-20 12:49 | Outpatient (CLI) | payer BC, SELFPAY ==
--- NOTE | ~2024-01-20 | MMUS_ITS ---
EXAMINATION: MM diagnostic rah LT w cipriano, US breast LT limited HISTORY: Follow-up left breast asymmetry TECHNIQUE: Additional 3-D tomosynthesis images of the left breast were performed and synthetic 2-D im ages were generated. CAD analysis was submitted and interpreted. High resolution Limited left breast ultrasound was performed. COMPARISON: 11/15/2023 BREAST PARENCHYMAL COMPOSITION: Not dense: There are scattered areas of fibroglandular density. FINDINGS: MAMMOGRAPHIC FINDINGS: There is a persistent linear structure in the upper inner quadrant of the left breast posteriorly, al though this is not identified on the medial lateral view. This most likely represents a vascular stru cture or duct. There are no suspicious calcifications or architectural distortion. ULTRASOUND: Limited left breast ultrasound: At 11:00, 3 cm from the nipple, there is an oval hypoechoic mass with echogenic hilum measuring 7 mm, likely an intramammary lymph node. Also at this location there is a 3 mm cyst. At 12:00, 2 cm from the nipple there is a cluster of microcysts measuring 1 cm. IMPRESSION: 1. Probable benign findings of the left breast. 2. Recommend 6 month follow-up diagnostic left mammogram and left breast ultrasound BI-RADS category 3, probably benign findings. Reviewed, dictated and finalized at location A. IMPRESSION: 1. Probable benign findings of the left breast. 2. Recommend 6 month follow-up diagnostic left mammogram and left breast ultras ound BI-RADS category 3, probably benign findings.
== END 2024-01-20 12:50 | disposition home or self-care (01) ==
PROVIDERS: PCP Emergency Medicine; Visit Provider Emergency Medicine
DX: R92.8 Other abnormal and inconclusive findings on diagnostic imaging of breast (principal)
CPT/HCPCS: 76642; 77061; 77065; G0279

== ENCOUNTER 2024-01-20 14:46 | Emergency (ER) | payer BC, SELFPAY ==
[2024-01-20 14:55] VITALS: BP 105/58; PULSE 76; RESP 18; TEMP 36.4; O2SAT 98
[2024-01-20 15:40] VITALS: BP 109/58; PULSE 68; RESP 20; O2SAT 98
--- NOTE | 2024-01-20 16:16 | ECG_ITS ---
SEE SCANNED COPY FOR CONFIRMED REPORT MTDD
[2024-01-20 16:30] LABS: Basophils Percent Auto 0.5 % (0.2-1.2); Eosinophils Absolute Auto 0.1 K/mm3 (0-0.3); Hematocrit 38.3 % (37.0-47.0); Hemoglobin 12.2 g/dL (12.0-15.0); Immature Granulocyte Absolute 0.02 K/mm3 (0.00-0.031); Immature Granulocyte Percent A 0.3 % (0-0.5); Lymphocytes Percent Auto 20.9 % (18.3-44.2); Mean Corpuscular HGB Conc 31.9 g/dl (32-36); Mean Corpuscular Hemoglobin 28.7 pg (26-34); Mean Corpuscular Volume 90.1 fl (80-100); Mean Platelet Volume 10.1 fl (7.4-10.4); Monocytes Absolute Auto 0.5 K/mm3 (0.1-0.6); Monocytes Percent Auto 6.1 % (2.6-8.5); Neutrophils Absolute Auto 5.5 K/mm3 (1.3-6.7); Neutrophils Percent Auto 71.2 % (45.5-73.1); Platelet Count Result 251 k/mm3 (150-375); Red Blood Count 4.25 M/mm3 (4.2-5.4); Red Cell Distribution Width 13.6 % (11.5-14.5); White Blood Count 7.7 K/mm3 (4.5-10.0)
[2024-01-20 16:40] LABS: Alanine Aminotransferase 21 U/L (6-35); Albumin Level 4.2 g/dL (3.5-5.1); Alkaline Phosphatase 109 U/L (38-126); Anion Gap 8 mmol/L (4-12); Aspartate Amino Transferase 25 U/L (14-36); Bilirubin,Total 0.4 mg/dL (0.2-1.3); Blood Urea Nitrogen 31 mg/dL (7-17); Calcium 9.5 mg/dL (8.4-10.2); Carbon Dioxide 24 mmol/L (22-30); Chloride 107 mmol/L (98-107); Estimated CRCL calculation 44 ml/min; Estimated Glomerular Filt Rate 36; Glucose 110 mg/dL (65-110); Potassium 4.6 mmol/L (3.4-5.0); Sodium 139 mmol/L (137-145)
--- NOTE | 2024-01-20 16:41 | ED.GENADULT ---
HPI - General Adult General Chief complaint: Unspecified Stated complaint: shaking during mammogram Time Seen by Provider: 01/20/24 15:22 History of Present Illness HPI narrative: 50-year-old female presents to our department after having a syncopal event while having a mammogram earlier today. Patient feels well overall on arrival and has no complaints. Related Data Home Medications Medication Instructions Recorded Confirmed montelukast 10 mg tablet 10 mg PO DAILY 07/08/21 09/27/23 omeprazole 40 mg capsule,delayed 40 mg PO DAILY 07/08/21 09/27/23 release fluoxetine 40 mg capsule 40 mg PO DAILY 06/17/22 09/27/23 aripiprazole 15 mg tablet 5 mg PO DAILY 08/01/23 09/27/23 lisinopril 20 mg tablet 40 mg PO DAILY 08/01/23 09/27/23 quetiapine 50 mg tablet 50 mg PO DAILY 08/01/23 09/27/23 aspirin 325 mg tablet 325 mg PO DAILY 09/14/23 09/27/23 nifedipine 60 mg tablet,extended 60 mg PO DAILY 09/14/23 09/27/23 release rosuvastatin 20 mg tablet 20 mg PO DAILY 09/14/23 09/27/23 Allergies Allergy/AdvReac Type Severity Reaction Status Date / Time Penicillins Allergy Unknown unknown Verified 09/27/23 13:04 Review of Systems Review of Systems: CONSTITUTIONAL: Denies fever, chills, or sweats. EYES: Denies visual changes, redness, or discharge. ENT: Denies rhinorrhea, congestion, sore throat, or otalgia. CARDIOVASCULAR: Denies chest pain, palpitations, or edema. RESPIRATORY: Denies cough or dyspnea. GASTROINTESTINAL: Denies abdominal pain, nausea, vomiting, or diarrhea. GENITOURINARY: Denies dysuria or hematuria. SKIN: Denies rash or itching. MUSCULOSKELETAL: Denies back pain, joint pain, or myalgia. NEUROLOGIC: Denies headache, numbness, or weakness. PSYCHIATRIC: Denies anxiety or depression. [facility] Past Medical History Medical History Anxiety Depression Essential hypertension History of CVA (cerebrovascular accident) Hyperlipemia Sleep apnea Type 2 diabetes mellitus with other circulatory complications Surgical History Surgical History No pertinent past surgical history Family History Family History Father Diabetes mellitus Family history of Parkinson's disease, Onset Age: 86 CAD (coronary artery disease) Mother Cerebrovascular accident Social History Social History Smoking status: Former smoker Tobacco type: cigarettes Second hand tobacco smoke exposure: No Alcohol intake: never Substance use: never Substance use type: does not use Lack of Transportation: No Lack of Food: Never True Current Housing: I Have Housing Concerned About Future Housing: No Difficulty Paying Gas/Electric Bills: No Difficulty Paying for Meds: No Currently Unemployed: No Education: Master's Degree or Higher Difficulty w/ Childcare or Family Care: No Living arrangements: with family Additional living arrangements comments: Mother Occupation/Education: occupation 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 HEAD: Normocephalic, atraumatic. EYES: PERRLA and EOMI. ENT: Nares clear, no rhinorrhea or epistaxis. Mucous membranes moist. NECK: Supple. CHEST: Clear to auscultation. No respiratory distress. HEART: Regular rate and rhythm. No murmur heard. Normal peripheral pulses. ABDOMEN: Soft, nontender, nondistended, normal active bowel sounds. EXTREMITIES: Normal range of motion. No edema. SKIN: Warm, dry, no rash. NEURO: No focal deficits. Alert and oriented x3. PSYCH: Normal mood and affect. Course Vital Signs Vital signs:
[2024-01-20 16:48] VITALS: BP 107/67; PULSE 60; RESP 20; O2SAT 100
[2024-01-20] MEDS: LACTATED RINGERS 1,000 ML 999 ML IV CONT (16:53)
[2024-01-20 17:12] LABS: NT Pro B Type Natriuretic Pept 65 pg/mL (19.9-100); Troponin I < 0.012 ng/mL (0.000-0.034)
[2024-01-20 18:26] VITALS: BP 110/60; PULSE 67; RESP 17; O2SAT 100
== END 2024-01-20 18:26 | disposition home or self-care (01) ==
PROVIDERS: Emergency Provider Emergency Medicine; PCP Emergency Medicine
DX: R55 Syncope and collapse (principal); F41.8 Other specified anxiety disorders; I10 Essential (primary) hypertension; E78.5 Hyperlipidemia, unspecified; E11.9 Type 2 diabetes mellitus without complications; Z87.891 Personal history of nicotine dependence
CPT/HCPCS: 36415; 76642; 77061; 77065; 80053; 83880; 84484; 85025; 93005; 96360; 96361; 99284; G0279; J7120

== ENCOUNTER 2024-05-23 16:47 | Observation (INO) | payer BC, SELFPAY ==
--- NOTE | ~2024-05-23 | MR_ITS ---
EXAMINATION: MR brain/brain stem wo/w con DATE: 05/28/2024 16:55 INDICATION: Ataxia and incontinence TECHNIQUE: Magnetic resonance imaging (MRI) of the brain and brainstem was performed without and with 20 mL Multihance intravenous contrast. Sequences included sagittal and axial T1-weighted FLAIR, axia l T1-weighted FSE, axial diffusion-weighted FS EPI, sagittal T2-weighted FLAIR, axial T2*-weighted GR E, axial T2-weighted FLAIR Propeller, and axial T2-weighted Propeller. Postcontrast sequences include d axial, coronal, and sagittal T1-weighted FSE. Apparent diffusion coefficient (ADC) maps were create d. COMPARISON: 09/07/2017 FINDINGS: Small regions of encephalomalacia in the the bilateral posterior parietal lobes consistent with seque la of chronic infarcts with restricted diffusion consistent with acute infarcts in these locations on the prior study. There are no areas of restricted diffusion to suggest acute infarction in the curre nt study. No intracranial hemorrhage or abnormal intracranial mass lesion. No significant change in s everal additional scattered foci of white matter T2 signal hyperintensity consistent with sequela of chronic small vessel ischemic disease. There are no intraparenchymal signal abnormalities seen on the other pulse sequences. The ventricles are symmetric and normal in size. There are no abnormal extra- axial fluid collections. Flow voids are seen in the cerebral arteries on the T2-weighted sequences co nsistent with their expected patency. Visualized orbits and soft tissues are unremarkable. There are no areas of abnormal enhancement on the post contrast images. IMPRESSION: 1. Small regions of encephalomalacia related to chronic infarct in the bilateral parietal lobes. No a cute intracranial process. 2. No significant interval change in scattered foci of nonspecific white matter T2 hyperintensity whi ch is within normal limits for age and likely sequela of chronic small vessel ischemic disease. Reviewed, dictated and finalized at location A. IMPRESSION: 1. Small regions of encephalomalacia related to chronic infarct in the bilatera l parietal lobes. No acute intracranial process. 2. No significant interval change in scattered foci of nonspecific white matter T2 hyperintensity which is within normal limits for age and likely sequela of chronic small vessel ischemic disease.
--- NOTE | ~2024-05-23 | US_ITS ---
EXAMINATION: US venous doppler [facility] DATE: 05/23/2024 20:11 INDICATION: Left lower limb pain TECHNIQUE: Grayscale ultrasound images without and with compression and Doppler ultrasound images of the left lower extremity veins were obtained. COMPARISON: None. FINDINGS: The visualized portions of left common femoral vein, profunda (deep) femoral vein, femoral vein, popl iteal vein, peroneal veins, posterior tibial veins and greater saphenous vein outflow are patent. IMPRESSION: 1. No deep venous thrombosis in the left lower limb. Reviewed, dictated and finalized at location A.
--- NOTE | ~2024-05-23 | XR_ITS ---
EXAMINATION: XR lumbar spine 2-3V DATE: 05/25/2024 14:59 INDICATION: Left leg numbness and weakness TECHNIQUE: Anteroposterior and lateral views of the lumbar spine, and cone-down lateral view of the l umbosacral junction were obtained. COMPARISON: None. FINDINGS: 2 mm anterolisthesis L4 on L5. Vertebral body heights are normal. Mild disc height loss at T10-T11 th rough L5-S1. Mild to moderate lower lumbar predominant facet osteoarthritis. IMPRESSION: 1. Mild lumbar and lower thoracic spondylosis. Reviewed, dictated and finalized at location A.
--- NOTE | ~2024-05-23 | XR_ITS ---
EXAMINATION: [id number]_[id number]_CR DATE: 05/24/2024 18:19 INDICATION: Numbness behind the left knee and weakness TECHNIQUE: Weight bearing anteroposterior and Hong, sunrise, and flexed lateral views of both kn ees were obtained. COMPARISON: None. FINDINGS: Alignment is normal. No fracture. Small marginal osteophytes in all 3 compartments of the knee consis tent with at least mild osteoarthritis. No significant joint space narrowing although this can be und erestimated on nonweightbearing imaging. Enthesophytes at the anterior tibial tuberosity and at the p atellar insertion of the distal quadriceps tendon. Soft tissues are unremarkable. No knee joint effus ion. IMPRESSION: 1. Mild tricompartmental osteoarthritis at the left knee. No joint effusion or acute osseous abnormal ity. Reviewed, dictated and finalized at location A. IMPRESSION: 1. Mild tricompartmental osteoarthritis at the left knee. No joint effusion or acute osseous abnormality.
--- NOTE | ~2024-05-23 | MR_ITS ---
EXAMINATION: MR thoracic spine wo/w con DATE: 05/28/2024 16:55 INDICATION: Ataxia and incontinence TECHNIQUE: Magnetic resonance imaging (MRI) of the thoracic spine was performed without and with 20 m L Multihance intravenous contrast. Sagittal localizer T1-weighted FSE of the cervicothoracic spine wa s obtained. Sequences included sagittal T2-weighted FSE, sagittal T2-weighted FS FSE, sagittal T1-miriam ghted FSE and axial T1-weighted SE. Postcontrast sequences included axial T2-weighted FSE, sagittal T 1-weighted FS FSE, and axial T1-weighted FS SE. COMPARISON: None FINDINGS: Alignment is normal.Mild likely physiologic anterior wedging at T12. Small Schmorl's node along the s uperior endplate of L2. Normal marrow signal.Multilevel mild disc height loss and at T3-T4, T4-T5, T6 -T7,T8-T9and T11-T12. Small central disc protrusions resulting in mild central canal stenosis and mil dly indenting the ventral surface of the cord at T8-T9 and T11-T12. There is normal spinal cord signa l. The conus terminates at L1. No abnormally enhancing lesions identified. IMPRESSION: 1. Mild thoracic spondylosis. Reviewed, dictated and finalized at location A.
--- NOTE | ~2024-05-23 | MR_ITS ---
EXAMINATION: MR cervical spine wo/w con DATE: 05/28/2024 16:56 INDICATION: Ataxia and incontinence TECHNIQUE: Magnetic resonance imaging (MRI) of the cervical spine was performed without and with 20 m L Multihance intravenous contrast. Sequences included sagittal T2-weighted FSE, sagittal T2-weighted FS FSE, sagittal T1-weighted FSE, axial MERGE and axial T2-weighted FSE. COMPARISON: None FINDINGS: Bone alignment is normal. Vertebral body heights are normal. Bone marrow signal intensity is normal . Intervertebral disc heights are normal. Cord signal intensity is normal. No abnormally enhancing le sions identified. The following disc levels are specifically discussed: C2-C3: The disc does not extend beyond the endplate margin. There is no uncovertebral joint osteoarth ritis. There is mild right and severe left facet joint osteoarthritis. There is mild left neural fora sarah stenosis. There is no central canal stenosis. C3-C4: Mild eccentric to the right disc bulge. There is mild left and moderate right uncovertebral barry int osteoarthritis. There is moderate right and severe left facet joint osteoarthritis. There is mild left and mild to moderate right neural foraminal stenosis. There is mild central canal stenosis. C4-C5: The disc does not extend beyond the endplate margin. There is mild bilateral uncovertebral garth nt osteoarthritis. There is mild left and severe right facet joint osteoarthritis. There is mild left and moderate right neural foraminal stenosis. There is no central canal stenosis. C5-C6: The disc does not extend beyond the endplate margin. There is mild bilateral uncovertebral garth nt osteoarthritis. There is mild bilateral facet joint osteoarthritis. There is mild left neural fora sarah stenosis. There is no central canal stenosis. C6-C7: Annular fissure and small central disc protrusion with disc material extending up to 4 mm ceph alad to the level of the inferior endplate of C5. There is mild bilateral uncovertebral joint osteoar thritis. There is mild right and moderate left facet joint osteoarthritis. There is mild bilateral ne ural foraminal stenosis. There is mild central canal stenosis. C7-T1: The disc does not extend beyond the endplate margin. There is no uncovertebral joint osteoarth ritis. There is mild right and severe left facet joint osteoarthritis. There is mild left neural fora sarah stenosis. There is no central canal stenosis. IMPRESSION: 1. Mild cervical spondylosis. No spinal cord lesions. Reviewed, dictated and finalized at location A.
[2024-05-23 16:51] VITALS: BP 109/52; PULSE 81; RESP 18; TEMP 36.6; O2SAT 99
[2024-05-23 18:09] VITALS: BP 99/57; PULSE 71; RESP 18; O2SAT 99
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
[2024-05-23 19:38] LABS: Basophils Percent Auto 0.6 % (0.2-1.2); Eosinophils Absolute Auto 0.1 K/mm3 (0-0.3); Hematocrit 38.5 % (37.0-47.0); Hemoglobin 12.3 g/dL (12.0-15.0); Immature Granulocyte Absolute 0.02 K/mm3 (0.00-0.031); Immature Granulocyte Percent A 0.3 % (0-0.5); Lymphocytes Absolute Auto 2.25 K/mm3 (0.9-3.2); Lymphocytes Percent Auto 33.1 % (18.3-44.2); Mean Corpuscular HGB Conc 31.9 g/dl (32-36); Mean Corpuscular Hemoglobin 29.2 pg (26-34); Mean Corpuscular Volume 91.4 fl (80-100); Mean Platelet Volume 10.5 fl (7.4-10.4); Monocytes Absolute Auto 0.4 K/mm3 (0.1-0.6); Monocytes Percent Auto 6.5 % (2.6-8.5); Neutrophils Percent Auto 58.5 % (45.5-73.1); Platelet Count Result 244 k/mm3 (150-375); Red Blood Count 4.21 M/mm3 (4.2-5.4); White Blood Count 6.8 K/mm3 (4.5-10.0)
[2024-05-23 19:48] LABS: Anion Gap 13 mmol/L (4-12); Blood Urea Nitrogen 50 mg/dL (7-17); Calcium 9.7 mg/dL (8.4-10.2); Carbon Dioxide 22 mmol/L (22-30); Chloride 104 mmol/L (98-107); Estimated CRCL calculation 29 ml/min; Estimated Glomerular Filt Rate 21; Glucose 85 mg/dL (65-110); INR 0.9; Magnesium 2.2 mg/dL (1.6-2.3); Potassium 5.1 mmol/L (3.4-5.0); Prothrombin Time 12.8 Seconds (11.1-14.7); Sodium 139 mmol/L (137-145)
[2024-05-23 19:49] LABS: Partial Thromboplastin Time 29.1 Seconds (22.3-36.8)
[2024-05-23 20:57] VITALS: BP 126/64; PULSE 70; RESP 16; O2SAT 100
[2024-05-23] MEDS: SODIUM CHLORIDE 0.9% IV 2,000 ML 999 ML IV CONT (21:21)
--- NOTE | 2024-05-23 22:49 | PM.IMHP ---
H&P: HPI History of Present Illness Date/Time: 05/23/24 22:49 Chief Complaint: Left knee pain Narrative: This is a 58-year-old female with past medical history significant for hypertension, diabetes, restless leg syndrome, dyslipidemia, sleep apnea, obesity, Chronic kidney disease. Patient presents to the emergency room with complaints of left knee pain and swelling preliminary workup was significant for venous Doppler negative for DVT lab work showed a creatinine of 2.4. Patient denies any fevers rigors chills cough sputum production nausea vomiting diarrhea has had good per orally intake EXAMINATION: US venous doppler LE DATE: 05/23/2024 20:11 INDICATION: Left lower limb pain TECHNIQUE: Grayscale ultrasound images without and with compression and Doppler ultrasound images of the left lower extremity veins were obtained. COMPARISON: None. FINDINGS: The visualized portions of left common femoral vein, profunda (deep) femoral vein, femoral vein, popliteal vein, peroneal veins, posterior tibial veins and greater saphenous vein outflow are patent. IMPRESSION: 1. No deep venous thrombosis in the left lower limb. [facility] Past Medical History Medical History Anxiety Depression Essential hypertension History of CVA (cerebrovascular accident) Hyperlipemia Sleep apnea Type 2 diabetes mellitus with other circulatory complications Surgical History Surgical History No pertinent past surgical history Family History Family History Father Diabetes mellitus Family history of Parkinson's disease, Onset Age: 86 CAD (coronary artery disease) Mother Cerebrovascular accident Social History Social History Smoking status: Never smoker Tobacco type: cigarettes Second hand tobacco smoke exposure: No Alcohol intake: current Substance use: never Substance use type: does not use Do You Feel Safe in your Home?: Yes Lack of Transportation: No Lack of Food: Never True Current Housing: I Have Housing Concerned About Future Housing: No Difficulty Paying Gas/Electric Bills: No Difficulty Paying for Meds: No Currently Unemployed: YES Education: Master's Degree or Higher Difficulty w/ Childcare or Family Care: No Living arrangements: with family Additional living arrangements comments: Mother Occupation/Education: occupation 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 Gender identity (if verbalized by the patient): Female Spiritual care concerns: No Agree to blood products: Yes Meds Home Medications and Allergies Home Medications Medication Instructions Recorded Confirmed Type montelukast 10 mg tablet 10 mg PO .DAVID 07/08/21 05/24/24 History omeprazole 40 mg capsule,delayed 40 mg PO DAILY 07/08/21 05/24/24 History release fluoxetine 40 mg capsule 80 mg PO DAILY 06/17/22 05/24/24 History quetiapine 50 mg tablet 50 mg PO HS 08/01/23 05/24/24 History aspirin 325 mg tablet 325 mg PO DAILY 09/14/23 05/24/24 History nifedipine 60 mg tablet,extended 60 mg PO DAILY 09/14/23 05/24/24 History release aripiprazole 10 mg tablet 10 mg PO DAILY 05/24/24 05/24/24 History hydroxyzine HCl 25 mg tablet 25 mg PO Q6H PRN Anxiety 05/24/24 05/24/24 History lisinopril 40 mg tablet 40 mg PO DAILY 05/24/24 05/24/24 History metformin 500 mg tablet 500 mg PO BID 05/24/24 05/24/24 History rosuvastatin 40 mg tablet 40 mg PO DAILY 05/24/24 05/24/24 History Allergies Allergy/AdvReac Type Severity Reaction Status Date / Time Penicillins Allergy Unknown unknown Verified 05/23/24 18:10 Vital Signs Vital Signs - 24 hr 05/23/24 16:51 05/23/24 18:09 05/23/24 20:57 Temperature 97.8 F Pulse Rate 81 71 70 Respiratory Rate 18 18 16 Blood P
[2024-05-23 23:13] VITALS: BP 121/60; PULSE 69; RESP 16; O2SAT 99
[2024-05-23 23:45] LABS: Add Urine Microscopic? YES; Appearance Urine Cloudy (Clear); Bacteria Urine None Seen /hpf; Bilirubin Urine Negative (Negative); Blood Urine 2+ (Negative); Color Urine Yellow (Yellow); Glucose Urine UA Negative (Negative); Ketones Urine Negative (Negative); Leukocyte Esterase Ur Negative LEU/UL (Negative); Need Manual Microscopic Reviewed; Nitrate Urine Negative (Negative); Protein Urine 2+ mg/dL (Negative); RBC Urine 0-2 /hpf (0-2); Specific Grav Ur 1.022 (1.001-1.035); Squamous Epithelial Cell Urine Few /hpf (Few); Urobilinogen Urine 0.2 mg/dL (<2.0); WBC Urine 0-5 /hpf (0-3)
--- NOTE | 2024-05-24 | ECHO_ITS ---
Patient Info Name: Hannah Da Silva Age: 58 years : 1965 Gender: Female Ht: 66 in Wt: 242 lbs BSA: 2.31 m2 HR: 63 bpm BP: 101 / 60 mmHg Heart Rhythm: Sinus Rhythm Technical Quality: Fair Exam Date: 05/24/2024 11:35 AM Exam Location: Echo Lab Patient Status: Outpatient Admit Date: 05/23/2024 Staff Ordering Physician: Antonio Clark MD Pulverizer Tender: Elle Avila [facility] Attending Provider: Antonio Clark MD Referring Physician: Eduardo MORFIN; Exam Type: CA echo doppler color flow Study Info Indications - OWEN Complete two-dimensional, color flow and Doppler transthoracic echocardiogram is performed. Summary 1. Left ventricular chamber dimension is normal. 2. Left ventricular systolic function is normal, estimated at 65-70%. 3. The left ventricular diastolic function is grade I diastolic dysfunction. 4. Right ventricular systolic function is normal. 5. No significant valvular disease. 6. Normal inferior vena cava with >50% collapse upon inspiration consistent with normal right atrial pressure, 3 mmHg. Left Ventricle Left ventricular chamber dimension is normal. Left ventricular systolic function is normal, estimated at 65-70%. There is no increased left ventricular wall thickness. The left ventricular diastolic function is grade I diastolic dysfunction. Right Ventricle Right ventricular chamber dimension is normal. Right ventricular systolic function is normal. Left Atria Left atrial chamber dimension is normal. Right Atria Right atrial chamber dimension is normal. Atrial Septum Intact interatrial septum visualized by color flow imaging. Aortic Valve The aortic valve is not well visualized. There is no aortic valve stenosis. There is no aortic valve regurgitation. Pulmonic Valve The pulmonic valve is not well visualized. Mitral Valve There is trace mitral valve regurgitation. Tricuspid Valve There is trace tricuspid valve regurgitation. Pericardium/Pleural There is no pericardial effusion. Inferior Vena Cava Normal inferior vena cava with >50% collapse upon inspiration consistent with normal right atrial pressure, 3 mmHg. Aorta The aortic root size at the sinus of Valsalva is normal. Left Ventricular Outflow Tract Name Value Normal LVOT 2D LVOT Diameter 1.9 cm LVOT Doppler LVOT Peak Gradient 10 mmHg LVOT Mean Gradient 4 mmHg LVOT VTI 28 cm LVOT VTI/AV VTI Ratio 0.7 LVOT Stroke Volume 75 ml LVOT CO 5.4 l/min LVOT CI 2.3 l/min/m2 Pulmonic Valve Name Value Normal PV Doppler PV Peak Gradient 7 mmHg Mitral Valve Name Value Normal
[2024-05-24] MEDS: SODIUM CHLORIDE 0.9% IV 1,000 ML 999 ML IV CONT (00:04)
--- NOTE | 2024-05-24 00:40 | ADMGEN ---
This patient, Hannah Da Silva, was admitted to Medical Room 249-01. Patient/family oriented to hospital policies and general routines including ID bracelet, bed and alarms, visiting hours, pain management, procedures, bathroom and other care routines, personal items, smoking policy, room service/diet, and visiting hours. Information on how to activate the Rapid Response Team has been discussed. Patient/Family are encouraged to report perceived risks to care and to ask questions if they do not understand what they are told or what they should do.
[2024-05-24 01:33] VITALS: BP 112/55; PULSE 69; RESP 20; TEMP 36.3; O2SAT 100
[2024-05-24 01:36] VITALS: BMI 39.1
[2024-05-24 05:37] LABS: Basophils Absolute Auto 0.1 K/mm3 (0.0-0.1); Basophils Percent Auto 0.7 % (0.2-1.2); Eosinophils Absolute Auto 0.1 K/mm3 (0-0.3); Eosinophils Percent Auto 1.3 % (0-4.4); Hematocrit 38.4 % (37.0-47.0); Immature Granulocyte Absolute 0.02 K/mm3 (0.00-0.031); Immature Granulocyte Percent A 0.3 % (0-0.5); Lymphocytes Absolute Auto 3.07 K/mm3 (0.9-3.2); Lymphocytes Percent Auto 40.6 % (18.3-44.2); Mean Corpuscular HGB Conc 31.3 g/dl (32-36); Mean Corpuscular Hemoglobin 29.2 pg (26-34); Mean Corpuscular Volume 93.4 fl (80-100); Mean Platelet Volume 10.5 fl (7.4-10.4); Monocytes Absolute Auto 0.5 K/mm3 (0.1-0.6); Neutrophils Absolute Auto 3.8 K/mm3 (1.3-6.7); Neutrophils Percent Auto 50.1 % (45.5-73.1); Platelet Count Result 228 k/mm3 (150-375); Red Blood Count 4.11 M/mm3 (4.2-5.4); Red Cell Distribution Width 14.1 % (11.5-14.5); White Blood Count 7.6 K/mm3 (4.5-10.0)
[2024-05-24 05:38] VITALS: BP 101/60; PULSE 63; RESP 20; TEMP 36.5; O2SAT 97
[2024-05-24 05:54] LABS: Anion Gap 10 mmol/L (4-12); Blood Urea Nitrogen 43 mg/dL (7-17); Calcium 8.9 mg/dL (8.4-10.2); Carbon Dioxide 23 mmol/L (22-30); Chloride 108 mmol/L (98-107); Estimated CRCL calculation 37 ml/min; Estimated Glomerular Filt Rate 27; Glucose 89 mg/dL (65-110); Potassium 4.9 mmol/L (3.4-5.0); Sodium 141 mmol/L (137-145)
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
[2024-05-24 07:46] LABS: Creatine Kinase 141 U/L (30-135)
[2024-05-24 08:04] LABS: Glucose Point of Care 126 mg/dl (65-105)
[2024-05-24 08:12] LABS: Hemoglobin A1C 6.1 % (<5.7)
[2024-05-24] MEDS: FLUoxetine HCL 20 MG CAPSULE 80 MG PO (08:29)
[2024-05-24] MEDS: NIFEdipine 30 MG TAB.ER.24 60 MG PO (08:29)
[2024-05-24] MEDS: ARIPiprazole 10 MG TABLET PO (08:30)
[2024-05-24] MEDS: ENOXAPARIN 30 MG/0.3 ML SYRINGE SUB-Q ×2 (08:30→20:24)
[2024-05-24] MEDS: PANTOPRAZOLE 40 MG TABLET PO ×2 (08:30→20:24)
[2024-05-24] MEDS: ASPIRIN 325 MG TABLET PO (08:30)
[2024-05-24 12:35] LABS: Glucose Point of Care 106 mg/dl (65-105)
[2024-05-24 14:00] VITALS: BP 108/55; PULSE 70; RESP 16; TEMP 36.4; O2SAT 98
[2024-05-24 17:29] LABS: Glucose Point of Care 99 mg/dl (65-105)
[2024-05-24] MEDS: MONTELUKAST SODIUM 10 MG TABLET PO (20:24)
[2024-05-24] MEDS: QUEtiapine FUMARATE 25 MG TABLET 50 MG PO (20:24)
[2024-05-24 20:57] VITALS: BP 114/54; PULSE 67; RESP 20; TEMP 36.3; O2SAT 98
[2024-05-24 21:09] LABS: Glucose Point of Care 96 mg/dl (65-105)
[2024-05-25 05:15] LABS: Basophils Percent Auto 0.6 % (0.2-1.2); Eosinophils Absolute Auto 0.1 K/mm3 (0-0.3); Eosinophils Percent Auto 1.1 % (0-4.4); Hematocrit 37.3 % (37.0-47.0); Hemoglobin 11.9 g/dL (12.0-15.0); Immature Granulocyte Absolute 0.02 K/mm3 (0.00-0.031); Immature Granulocyte Percent A 0.3 % (0-0.5); Lymphocytes Absolute Auto 2.67 K/mm3 (0.9-3.2); Mean Corpuscular HGB Conc 31.9 g/dl (32-36); Mean Corpuscular Hemoglobin 29.2 pg (26-34); Mean Corpuscular Volume 91.4 fl (80-100); Mean Platelet Volume 10.6 fl (7.4-10.4); Monocytes Absolute Auto 0.4 K/mm3 (0.1-0.6); Monocytes Percent Auto 6.4 % (2.6-8.5); Neutrophils Absolute Auto 3.3 K/mm3 (1.3-6.7); Neutrophils Percent Auto 50.6 % (45.5-73.1); Platelet Count Result 226 k/mm3 (150-375); Red Blood Count 4.08 M/mm3 (4.2-5.4); Red Cell Distribution Width 14.1 % (11.5-14.5); White Blood Count 6.5 K/mm3 (4.5-10.0)
[2024-05-25 05:40] LABS: Alanine Aminotransferase 21 U/L (6-35); Alkaline Phosphatase 93 U/L (38-126); Anion Gap 11 mmol/L (4-12); Aspartate Amino Transferase 29 U/L (14-36); Bilirubin,Total 0.5 mg/dL (0.2-1.3); Blood Urea Nitrogen 32 mg/dL (7-17); Calcium 9.1 mg/dL (8.4-10.2); Carbon Dioxide 21 mmol/L (22-30); Chloride 107 mmol/L (98-107); Estimated CRCL calculation 39 ml/min; Estimated Glomerular Filt Rate 29; Glucose 86 mg/dL (65-110); Potassium 4.3 mmol/L (3.4-5.0); Sodium 139 mmol/L (137-145)
--- NOTE | 2024-05-25 05:47 | PC.NURSE ---
On 05/24/24 & 05/25/24, the MANAGER GREEN, [Yasmin Walker], provided care and completed [employer] documentation on this patient. I have reviewed the MANAGER GREEN's documentation and agree with the findings.
[2024-05-25 06:00] VITALS: BP 100/59; PULSE 64; RESP 18; TEMP 35.9; O2SAT 98
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
[2024-05-25 08:20] LABS: Glucose Point of Care 86 mg/dl (65-105)
[2024-05-25] MEDS: NIFEdipine 30 MG TAB.ER.24 60 MG PO (08:46)
[2024-05-25] MEDS: ARIPiprazole 10 MG TABLET PO (08:46)
[2024-05-25] MEDS: PANTOPRAZOLE 40 MG TABLET PO ×2 (08:46→20:07)
[2024-05-25] MEDS: ENOXAPARIN 30 MG/0.3 ML SYRINGE SUB-Q ×2 (08:46→20:08)
[2024-05-25] MEDS: FLUoxetine HCL 20 MG CAPSULE 80 MG PO (08:46)
[2024-05-25] MEDS: ASPIRIN 325 MG TABLET PO (08:46)
[2024-05-25 09:00] LABS: Erythrocyte Sedimentation Rate 35 mm/hr (0-20)
[2024-05-25 12:20] LABS: Glucose Point of Care 97 mg/dl (65-105)
[2024-05-25 14:00] VITALS: BP 114/59; PULSE 72; RESP 18; TEMP 36.9; O2SAT 98
--- NOTE | 2024-05-25 15:54 | PCPTNOTE ---
On 05/25/24, the student, [Lyric Tipton], provided care and completed [facility] documentation on this patient. I have reviewed the student's documentation and agree with the findings.
[2024-05-25 17:07] LABS: Glucose Point of Care 95 mg/dl (65-105)
--- NOTE | 2024-05-25 17:56 | WPDNEURCNPN ---
Assessment and Plan Assessment and plan (1) Difficulty in walking: Code(s): R26.2 - Difficulty in walking, not elsewhere classified Status: Acute (2) Numbness and tingling of left lower extremity: Code(s): R20.0 - Anesthesia of skin; R20.2 - Paresthesia of skin Status: Acute Assessment and Plan: T patient states that she feels numb below the knee but she does not have any pain in the lower back or radiation to the lower limbs and hence lumbosacral radiculopathy appears less likely. I agree with your thoughts to look into more central etiology particular since there is some loss of alternating movement of the left hand compared to the right side . The bladder involvement is also and issue that requires further explanation. Hence I agree with the suspicion regarding multiple sclerosis versus cerebrovascular disease. I will go ahead and order MRI of the cervical, thoracic and lumbosacral spine. I noted the MRI of the brain has also been ordered. This study should be done with and without contrast with multiple sclerosis protocol. I had her walk around the room with the help of the nursing staff and she was able to walk short distance with minimal assistance but clearly she requires the looking into this issue. (3) Body mass index (BMI) of 40.1-44.9 in adult: Code(s): Z68.41 - Body mass index [BMI] 40.0-44.9, adult Status: Acute (4) JUSTIN (obstructive sleep apnea): Code(s): G47.33 - Obstructive sleep apnea (adult) (pediatric) Status: Acute (5) History of CVA (cerebrovascular accident): Code(s): Z86.73 - Personal history of transient ischemic attack (TIA), and cerebral infarction without residual deficits Status: Acute (6) Depression: Qualifiers: Depression Type: major depressive disorder Major depression recurrence: recurrent Active/Remission status: currently active Major depression episode severity: moderate Qualified Code(s): F33.1 - Major depressive disorder, recurrent, moderate Code(s): F32.A - Depression, unspecified Status: Acute (7) Anxiety: Code(s): F41.9 - Anxiety disorder, unspecified Status: Acute (8) Diabetes mellitus with chronic kidney disease: Code(s): E11.22 - Type 2 diabetes mellitus with diabetic chronic kidney disease Status: Acute Consult date: 05/25/24 HPI: Hannah Da Silva is a 58 year old female complaints of difficulty in walking for past 3 4 days denies any symptoms in upper limbs or vision however she does have bladder problem of incontinence for last 3 4 months but she has not seen anybody for that. she complains some numbness below the left knee for last 3 days. She has mild discomfort in the back or legs but this is not her significant problem she is more concerned about the weakness of the legs and difficulty in walking. She is using a cane or at times a walker. She lives with the mother who is 87 years old. 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 She has not had any episodes of such weakness in the past. She does have a history of mild diabetes mellitus for 5-10 years which has been fairly well controlled. Review of Systems Review of Systems: All systems reviewed & are unremarkable except as noted in HPI and below PMFSH Past Medical History Medical History (Updated 05/25/24 @ 18:04 by Man Keith MD) Anxiety Depression Difficulty in walking Essential hypertension History of CVA (cerebrovascular accident) Hyperlipemia Numbness and tingling of left lower extremity Sleep apnea Type 2 diabetes mellitus with other circulatory complications Surgical History Surgical History No pertinent past surgical history Family History Family History Father Diabetes mellitus Family history of Parkinson's disease, Onset Age: 86 CAD (coronary artery disease) Mother Cer
[2024-05-25] MEDS: QUEtiapine FUMARATE 25 MG TABLET 50 MG PO (20:07)
[2024-05-25] MEDS: MONTELUKAST SODIUM 10 MG TABLET PO (20:07)
[2024-05-25 21:54] VITALS: BP 113/67; PULSE 68; RESP 18; TEMP 36.7; O2SAT 98
[2024-05-26 04:56] LABS: Basophils Percent Auto 0.5 % (0.2-1.2); Eosinophils Absolute Auto 0.1 K/mm3 (0-0.3); Eosinophils Percent Auto 1.2 % (0-4.4); Hematocrit 36.2 % (37.0-47.0); Hemoglobin 11.7 g/dL (12.0-15.0); Immature Granulocyte Absolute 0.01 K/mm3 (0.00-0.031); Immature Granulocyte Percent A 0.2 % (0-0.5); Lymphocytes Absolute Auto 2.12 K/mm3 (0.9-3.2); Mean Corpuscular HGB Conc 32.3 g/dl (32-36); Mean Corpuscular Hemoglobin 29.2 pg (26-34); Mean Corpuscular Volume 90.3 fl (80-100); Mean Platelet Volume 10.8 fl (7.4-10.4); Monocytes Absolute Auto 0.4 K/mm3 (0.1-0.6); Monocytes Percent Auto 6.8 % (2.6-8.5); Neutrophils Absolute Auto 3.1 K/mm3 (1.3-6.7); Neutrophils Percent Auto 54.3 % (45.5-73.1); Platelet Count Result 202 k/mm3 (150-375); Red Blood Count 4.01 M/mm3 (4.2-5.4); White Blood Count 5.7 K/mm3 (4.5-10.0)
[2024-05-26 05:09] LABS: Alanine Aminotransferase 22 U/L (6-35); Albumin Level 3.8 g/dL (3.5-5.1); Alkaline Phosphatase 97 U/L (38-126); Anion Gap 11 mmol/L (4-12); Aspartate Amino Transferase 33 U/L (14-36); Bilirubin,Total 0.4 mg/dL (0.2-1.3); Blood Urea Nitrogen 29 mg/dL (7-17); Calcium 9.1 mg/dL (8.4-10.2); Carbon Dioxide 20 mmol/L (22-30); Chloride 106 mmol/L (98-107); Estimated CRCL calculation 41 ml/min; Estimated Glomerular Filt Rate 31; Glucose 95 mg/dL (65-110); Sodium 137 mmol/L (137-145)
[2024-05-26 05:22] LABS: Vitamin D 25 Hydroxy 21.4 ng/mL
[2024-05-26 05:26] LABS: T4 Thyroxine 8.87 ug/dL (5.53-11.0)
[2024-05-26 06:00] VITALS: BP 106/51; PULSE 60; RESP 18; TEMP 36.6; O2SAT 97
[2024-05-26 06:16] LABS: Folic Acid 7.6 ng/mL (2.76->20)
--- NOTE | 2024-05-26 06:49 | PC.NURSE ---
On 05/25/24 & 05/26/24, the AUTOMATIC STACKER, [Yasmin Walker], provided care and completed [employer] documentation on this patient. I have reviewed the AUTOMATIC STACKER's documentation and agree with the findings.
[2024-05-26 08:13] LABS: Glucose Point of Care 96 mg/dl (65-105)
[2024-05-26] MEDS: ASPIRIN 325 MG TABLET PO (09:27)
[2024-05-26] MEDS: ENOXAPARIN 30 MG/0.3 ML SYRINGE SUB-Q ×2 (09:27→20:33)
[2024-05-26] MEDS: ARIPiprazole 10 MG TABLET PO (09:27)
[2024-05-26] MEDS: FLUoxetine HCL 20 MG CAPSULE 80 MG PO (09:27)
[2024-05-26] MEDS: PANTOPRAZOLE 40 MG TABLET PO ×2 (09:27→20:33)
[2024-05-26] MEDS: NIFEdipine 30 MG TAB.ER.24 60 MG PO (09:27)
[2024-05-26 12:00] LABS: Glucose Point of Care 104 mg/dl (65-105)
[2024-05-26 14:00] VITALS: BP 102/56; PULSE 70; RESP 16; TEMP 36.4; O2SAT 98
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
[2024-05-26 17:02] LABS: Glucose Point of Care 89 mg/dl (65-105)
[2024-05-26 20:33] LABS: Glucose Point of Care 147 mg/dl (65-105)
[2024-05-26] MEDS: MONTELUKAST SODIUM 10 MG TABLET PO (20:33)
[2024-05-26] MEDS: QUEtiapine FUMARATE 25 MG TABLET 50 MG PO (20:33)
[2024-05-26 22:00] VITALS: BP 106/53; PULSE 70; RESP 18; TEMP 36.8; O2SAT 98
[2024-05-27 05:14] LABS: Basophils Percent Auto 0.5 % (0.2-1.2); Eosinophils Absolute Auto 0.1 K/mm3 (0-0.3); Eosinophils Percent Auto 1.8 % (0-4.4); Hemoglobin 11.3 g/dL (12.0-15.0); Immature Granulocyte Absolute 0.02 K/mm3 (0.00-0.031); Immature Granulocyte Percent A 0.3 % (0-0.5); Lymphocytes Absolute Auto 2.18 K/mm3 (0.9-3.2); Lymphocytes Percent Auto 35.4 % (18.3-44.2); Mean Corpuscular HGB Conc 31.4 g/dl (32-36); Mean Corpuscular Hemoglobin 28.4 pg (26-34); Mean Corpuscular Volume 90.5 fl (80-100); Mean Platelet Volume 10.3 fl (7.4-10.4); Monocytes Absolute Auto 0.6 K/mm3 (0.1-0.6); Monocytes Percent Auto 8.9 % (2.6-8.5); Neutrophils Absolute Auto 3.3 K/mm3 (1.3-6.7); Neutrophils Percent Auto 53.1 % (45.5-73.1); Platelet Count Result 210 k/mm3 (150-375); Red Blood Count 3.98 M/mm3 (4.2-5.4); Red Cell Distribution Width 13.9 % (11.5-14.5); White Blood Count 6.2 K/mm3 (4.5-10.0)
[2024-05-27 05:38] LABS: Alanine Aminotransferase 27 U/L (6-35); Albumin Level 3.7 g/dL (3.5-5.1); Alkaline Phosphatase 93 U/L (38-126); Anion Gap 10 mmol/L (4-12); Aspartate Amino Transferase 37 U/L (14-36); Bilirubin,Total 0.3 mg/dL (0.2-1.3); Blood Urea Nitrogen 28 mg/dL (7-17); Calcium 8.6 mg/dL (8.4-10.2); Carbon Dioxide 23 mmol/L (22-30); Chloride 105 mmol/L (98-107); Estimated CRCL calculation 43 ml/min; Estimated Glomerular Filt Rate 33; Glucose 100 mg/dL (65-110); Potassium 4.2 mmol/L (3.4-5.0); Sodium 138 mmol/L (137-145)
[2024-05-27 06:00] VITALS: BP 107/60; PULSE 63; RESP 18; TEMP 36.3; O2SAT 97
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
[2024-05-27 08:07] LABS: Glucose Point of Care 133 mg/dl (65-105)
[2024-05-27 08:52] VITALS: BP 112/50; PULSE 84; RESP 18; O2SAT 99
[2024-05-27] MEDS: NIFEdipine 30 MG TAB.ER.24 60 MG PO (09:03)
[2024-05-27] MEDS: ASPIRIN 325 MG TABLET PO (09:03)
[2024-05-27] MEDS: PANTOPRAZOLE 40 MG TABLET PO ×2 (09:03→20:51)
[2024-05-27] MEDS: FLUoxetine HCL 20 MG CAPSULE 80 MG PO (09:03)
[2024-05-27] MEDS: ARIPiprazole 10 MG TABLET PO (09:03)
[2024-05-27] MEDS: ENOXAPARIN 30 MG/0.3 ML SYRINGE SUB-Q ×2 (09:04→20:51)
[2024-05-27 09:54] VITALS: O2SAT 96
[2024-05-27 12:05] LABS: Glucose Point of Care 122 mg/dl (65-105)
[2024-05-27 14:00] VITALS: BP 144/67; PULSE 67; RESP 18; TEMP 36.5; O2SAT 99
[2024-05-27 17:16] LABS: Glucose Point of Care 136 mg/dl (65-105)
[2024-05-27 20:00] VITALS: PULSE 68; RESP 19; O2SAT 99
[2024-05-27 20:34] LABS: Glucose Point of Care 118 mg/dl (65-105)
[2024-05-27] MEDS: MONTELUKAST SODIUM 10 MG TABLET PO (20:51)
[2024-05-27] MEDS: QUEtiapine FUMARATE 25 MG TABLET 50 MG PO (20:52)
[2024-05-27 21:14] VITALS: BP 133/62; PULSE 70; RESP 16; TEMP 36.6; O2SAT 99
[2024-05-28 05:39] LABS: Basophils Percent Auto 0.6 % (0.2-1.2); Eosinophils Absolute Auto 0.2 K/mm3 (0-0.3); Eosinophils Percent Auto 2.1 % (0-4.4); Hematocrit 36.1 % (37.0-47.0); Hemoglobin 11.3 g/dL (12.0-15.0); Immature Granulocyte Absolute 0.01 K/mm3 (0.00-0.031); Immature Granulocyte Percent A 0.1 % (0-0.5); Lymphocytes Percent Auto 39.6 % (18.3-44.2); Mean Corpuscular HGB Conc 31.3 g/dl (32-36); Mean Corpuscular Hemoglobin 28.5 pg (26-34); Mean Corpuscular Volume 91.2 fl (80-100); Mean Platelet Volume 10.8 fl (7.4-10.4); Monocytes Absolute Auto 0.6 K/mm3 (0.1-0.6); Monocytes Percent Auto 7.9 % (2.6-8.5); Neutrophils Absolute Auto 3.5 K/mm3 (1.3-6.7); Neutrophils Percent Auto 49.7 % (45.5-73.1); Platelet Count Result 213 k/mm3 (150-375); Red Blood Count 3.96 M/mm3 (4.2-5.4); White Blood Count 7.1 K/mm3 (4.5-10.0)
[2024-05-28 05:59] LABS: Alanine Aminotransferase 30 U/L (6-35); Albumin Level 3.5 g/dL (3.5-5.1); Alkaline Phosphatase 96 U/L (38-126); Anion Gap 8 mmol/L (4-12); Aspartate Amino Transferase 33 U/L (14-36); Bilirubin,Total 0.2 mg/dL (0.2-1.3); Blood Urea Nitrogen 26 mg/dL (7-17); Calcium 9.2 mg/dL (8.4-10.2); Carbon Dioxide 26 mmol/L (22-30); Chloride 104 mmol/L (98-107); Estimated CRCL calculation 41 ml/min; Estimated Glomerular Filt Rate 31; Glucose 99 mg/dL (65-110); Potassium 4.4 mmol/L (3.4-5.0); Sodium 138 mmol/L (137-145)
[2024-05-28 06:00] VITALS: BP 120/60; PULSE 61; RESP 16; TEMP 36.8; O2SAT 98
[2024-05-28 08:17] LABS: Glucose Point of Care 92 mg/dl (65-105)
[2024-05-28 08:34] VITALS: BP 124/66; PULSE 77; RESP 16; TEMP 36.4; O2SAT 98
[2024-05-28] MEDS: ASPIRIN 325 MG TABLET PO (08:37)
[2024-05-28] MEDS: NIFEdipine 30 MG TAB.ER.24 60 MG PO (08:37)
[2024-05-28] MEDS: ARIPiprazole 10 MG TABLET PO (08:37)
[2024-05-28] MEDS: FLUoxetine HCL 20 MG CAPSULE 80 MG PO (08:37)
[2024-05-28] MEDS: ENOXAPARIN 30 MG/0.3 ML SYRINGE SUB-Q (08:37)
[2024-05-28] MEDS: PANTOPRAZOLE 40 MG TABLET PO (08:38)
--- NOTE | 2024-05-28 10:53 | WPDNEUROPN ---
Progress Note: A&P Assessment and Plan (1) Numbness and tingling of left lower extremity: Code(s): R20.0 - Anesthesia of skin; R20.2 - Paresthesia of skin Status: Acute (2) Difficulty in walking: Code(s): R26.2 - Difficulty in walking, not elsewhere classified Status: Acute (3) Type 2 diabetes mellitus with other circulatory complications: Code(s): E11.59 - Type 2 diabetes mellitus with other circulatory complications Status: Chronic (4) Body mass index (BMI) of 40.1-44.9 in adult: Code(s): Z68.41 - Body mass index [BMI] 40.0-44.9, adult Status: Acute (5) JUSTIN (obstructive sleep apnea): Code(s): G47.33 - Obstructive sleep apnea (adult) (pediatric) Status: Acute (6) Essential hypertension: Code(s): I10 - Essential (primary) hypertension Status: Chronic (7) History of CVA (cerebrovascular accident): Code(s): Z86.73 - Personal history of transient ischemic attack (TIA), and cerebral infarction without residual deficits Status: Acute (8) Diabetes mellitus with chronic kidney disease: Code(s): E11.22 - Type 2 diabetes mellitus with diabetic chronic kidney disease Status: Acute Plan Patient feels she can walk somewhat better. MRI of the brain and the spin results are awaited. I shall be glad to follow her up. At this time she does appear to be making slight progress in terms of being able to walk without the cane. Subjective Date/time seen: 05/28/24 10:53 Interval history: The patient continues to have difficulty in walking however she is able to walk short distance without any cane today. She denies any other additional new symptoms. I noted that she had an MRI of the brain in 2017 which has shown multiple infarcts however the patient remembers that she had some difficulty with walking or balance other than that she does not remember much more in the way of details. The patient has history of diabetes mellitus, obstructive sleep apnea syndrome, chronic kidney disease. Presented with the numbness in her left lower limb below the knee. She is waiting for the MRI of the brain and spine as we ordered on the last review. Review of Systems Review of Systems: All systems reviewed & are unremarkable except as noted in HPI and below Exam Narrative: The patient is fully conscious and alert, oriented to self time place and person. No aphasia or dysarthria. Cranial nerves pupils were equal reacting to light. Visual van and extraocular movements were intact. There is no facial asymmetry. Facial sensation intact tongue was midline. Other cranial normal limits. Motor system normal power in both upper and lower limbs. I did not see any asymmetry of the rapid alternative movement of the hands or feet on this examination. Deep tendon reflexes are 2 to 3/4 and symmetric. Gait was not tested at this time. Mild tremors of the outstretched hand were noted. No definite cogwheeling was noted. Objective Data Vital Signs Vital Signs: Vital Signs - 24 hr 05/27/24 14:00 05/27/24 20:00 05/27/24 21:14 Temperature 36.5 C 36.6 C Pulse Rate 67 68 70 Respiratory Rate 18 19 16 Blood Pressure 144/67 H 133/62 Pulse Oximetry 99 99 99 Oxygen Delivery Room Air 05/28/24 06:00 05/28/24 08:34 Temperature 36.8 C 36.4 C Pulse Rate 61 77 Respiratory Rate 16 16 Blood Pressure 120/60 124/66 Pulse Oximetry 98 98 Oxygen Delivery Intake/Output Intake/Output: Intake & Output 05/25/24 05/26/24 05/27/24 05/28/24 23:59 23:59 23:59 23:59 Intake Total 1770 1330 720 710 Output Total 3 Balance 1770 1330 720 707 Meds/Results Medications: Active Medications Generic Name Dose Route Start Last Admin Trade Name Freq PRN Reason Stop Dose Admin Aripiprazole 10 mg 05/24/24 09:00 05/28/24 08:37 Aripiprazole 10 Mg Tablet PO 10 mg DAILY PURNIMA Administration Aspirin 325 mg 05/24/24 09:00 05/28/24 08:37 Aspirin 32
[2024-05-28 12:00] LABS: Glucose Point of Care 120 mg/dl (65-105)
--- NOTE | 2024-05-28 12:39 | PM.DS ---
DS: Admitting Diagnosis Discharge Date 05/28/24 Admitting Diagnosis Type 2 diabetes mellitus Restless leg syndrome Left knee pain Stage IIIA chronic kidney disease Acute kidney injury DS: Discharge Diagnosis Discharge Diagnosis (1) OWEN (acute kidney injury): Code(s): N17.9 - Acute kidney failure, unspecified Status: Acute (2) Stage 3a chronic kidney disease: Code(s): N18.31 - Chronic kidney disease, stage 3a Status: Chronic (3) Knee pain, left: Qualifiers: Chronicity: acute Qualified Code(s): M25.562 - Pain in left knee Code(s): M25.562 - Pain in left knee Status: Acute (4) Type 2 diabetes mellitus with other circulatory complications: Code(s): E11.59 - Type 2 diabetes mellitus with other circulatory complications Status: Chronic (5) Essential hypertension: Code(s): I10 - Essential (primary) hypertension Status: Chronic (6) Hyperlipemia: Code(s): E78.5 - Hyperlipidemia, unspecified Status: Chronic DS: Summary Hospital Course Reason for hospitalization: Type 2 diabetes mellitus Restless leg syndrome Left knee pain Stage IIIA chronic kidney disease Acute kidney injury Hospital Course: This is a 58-year-old female who presented to the hospital on 05/23/2024 with complaints of left lower extremity pain and swelling. Workup in the hospital included a venous Doppler study was negative for DVT. Initial labs showed a potassium of 5.1, creatinine 2.4, EGFR 20. UA showing 2+ protein, 2+ urine blood, otherwise normal. Patient received 2 L of normal saline while in the ED. Concerns are for multiple sclerosis, Neurology was consulted. MS workup he was obtained and is pending. Patient has been working with therapy and progressed back to baseline. She states that the numbness and tingling is significantly improved. She will need to follow up with Neurology in 2 weeks to discuss the results of her labs and imaging. While here, she was sent for MRI of the brain and brain stem with/without contrast, Cervical spine MRI with and without contrast, and Thoracic spine with and without contrast for Multiple Sclerosis work up. Patient is stable for discharge at this time. Final diagnosis: Acute kidney injury, meralgia paresthetica paresthesia the skin Status at Discharge Cognitive/behavioral status at discharge: Alert oriented x3 Functional status at discharge: independent ambulation Overall status at discharge: patient is progressing back to baseline Time Spent with Patient Time attestation: Total time spent providing and/or coordinating discharge services: Time spent: Greater than 30 minutes Exam Narrative: General: In no acute distress, well nourished Cardiac: Normal S1 and S2. Murmur noted gallops or friction rubs, peripheral pulses intact. Respiratory: Lungs clear to auscultation, no adventitious lung sounds, currently on room air Gastrointestinal: soft, non-distended, non-tender, normoactive bowel sounds. : voiding without difficulty. Extremities: moves all extremities well, no edema, reports that numbness is gone Neuro: Alert and oriented x4 Psych: normal mood, Flat affect, interactive DS: Data Data Completed and Pending Completed studies during hospitalization: Venous Doppler study Knee x-ray Lumbar spine x-ray MRI of the brain and brainstem with and without contrast MRI of the cervical spine with and without contrast MRI of the thoracic spine with and without contrast Pending studies at discharge: None Labs on day of discharge: Labs from last 24 hours 05/28/24 05/28/24 05/28/24 11:48 08:09 05:10 WBC 7.1 RBC 3.96 L Hgb 11.3 L Hct 36.1 L MCV 91.2 MCH 28.5 MCHC 31.3 L RDW 14.0 Plt Count 213 MPV 10.8 H Immature Gran % (Auto) 0.1 Neut % (Auto) 49.7 Lymph % (Auto) 39.6 Foard % (Auto) 7.9 Eos % (Auto) 2.1 Baso % (Auto) 0.6 Lymph # (Auto) 2.80 Foard # (Auto) 0.6
[2024-05-28 14:00] VITALS: BP 124/66; PULSE 80; RESP 16; TEMP 36.3; O2SAT 99
--- NOTE | 2024-05-28 15:10 | PC.NURSE ---
Patient off unit for MRI
[2024-05-29 17:38] LABS: Methylmalonic Acid 252 nmol/L (55-335)
[2024-05-31 01:34] LABS: Vitamin B6 8.1 ng/mL (2.1-21.7)
[2024-05-31 05:13] LABS: Vitamin B1 15 nmol/L (8-30)
[2024-06-07 15:10] LABS: T3 Free 2.5 pg/mL
== END 2024-05-28 17:30 | disposition home or self-care (01) ==
LOC: ANHED 19:14 → ANH2MED 05-24 01:09
PROVIDERS: Nurse Practitioner Acute Care; Psychiatry & Neurology Neurology; Admitting Provider Internal Medicine; Emergency Provider Registered Nurse; PCP Emergency Medicine; Visit Provider General Practice
DX: N17.9 Acute kidney failure, unspecified (principal); M79.662 Pain in left lower leg; M25.562 Pain in left knee; R20.0 Anesthesia of skin; R20.2 Paresthesia of skin; R26.2 Difficulty in walking, not elsewhere classified; F41.8 Other specified anxiety disorders; E78.5 Hyperlipidemia, unspecified; Z86.73 Personal history of transient ischemic attack (TIA), and cerebral infarction without residual deficits; N18.31 Chronic kidney disease, stage 3a; E11.22 Type 2 diabetes mellitus with diabetic chronic kidney disease; I12.9 Hypertensive chronic kidney disease with stage 1 through stage 4 chronic kidney disease, or unspecified chronic kidney disease; E11.59 Type 2 diabetes mellitus with other circulatory complications; Z68.41 Body mass index [BMI] 40.0-44.9, adult; G47.33 Obstructive sleep apnea (adult) (pediatric); G25.81 Restless legs syndrome
CPT/HCPCS: 36415; 70553; 72100; 72156; 72157; 73560; 80048; 80053; 81001; 82306; 82550; 82607; 82746; 82948; 83036; 83735; 83921; 84207; 84425; 84436; 84443; 84480; 85025; 85610; 85652; 85730; 86038; 86039; 93306; 93971; 96360; 96361; 97110; 97116; 97161; 97165; 97530; 97535; 99285; A9270; A9577; G0378; J1650; J7030

== ENCOUNTER 2024-07-09 14:42 | Outpatient (CLI) | payer BC, SELFPAY ==
--- NOTE | ~2024-07-09 | MR_ITS ---
EXAMINATION: MR lumbar spine wo con DATE: 07/09/2024 15:22 INDICATION: Anesthesia of skin TECHNIQUE: Magnetic resonance imaging (MRI) of the lumbar spine was performed without intravenous con trast. Sequences included sagittal T2-weighted FSE, sagittal T2-weighted FS FSE, sagittal T1-weighted FSE, and axial T2-weighted FSE. COMPARISON: None FINDINGS: Alignment is normal. Vertebral body heights are normal. Small Schmorl's nodes along the superior and inferior endplates of the L2. Normal marrow signal. Disc desiccation and mild disc height loss at T10 -T11 through L5-S1 sparing T12-L1 and L1-L2. The conus medullaris terminates at L1. There is normal s ignal in the caudal spinal cord. Paravertebral soft tissues are unremarkable. The following disc leve ls are specifically discussed: T12-L1: The disc does not extend beyond the endplate margin. There is no facet joint osteoarthritis. There is no neural foraminal stenosis. There is no central canal stenosis. L1-L2: Disc is mildly bulging. There is no facet joint osteoarthritis. There is no neural foraminal s tenosis. There is minimal central canal stenosis. L2-L3: Disc is bulging. There is mild right facet joint osteoarthritis. There is mild bilateral neura l foraminal stenosis. There is mild central canal stenosis. L3-L4: Disc is mildly bulging. There is mild bilateral facet joint osteoarthritis. There is no neural foraminal stenosis. There is mild central canal stenosis. L4-L5: Disc is bulging. There is mild to moderate bilateral facet joint osteoarthritis. There is mild bilateral neural foraminal stenosis. There is mild central canal stenosis. L5-S1: Disc is mildly bulging with superimposed annular fissure and small central disc protrusion. Th ere is mild bilateral facet joint osteoarthritis. There is no neural foraminal stenosis. There is mil d central canal stenosis. IMPRESSION: 1. Mild lumbar spondylosis. Reviewed, dictated and finalized at location A. IMPRESSION: 1. Mild lumbar spondylosis.
== END 2024-07-09 14:43 | disposition home or self-care (01) ==
LOC: ANHIMG 14:42
PROVIDERS: PCP Emergency Medicine; Visit Provider Psychiatry & Neurology Neurology
DX: R20.0 Anesthesia of skin (principal); R20.2 Paresthesia of skin; R26.2 Difficulty in walking, not elsewhere classified; E11.59 Type 2 diabetes mellitus with other circulatory complications; Z86.73 Personal history of transient ischemic attack (TIA), and cerebral infarction without residual deficits; M25.562 Pain in left knee
CPT/HCPCS: 72148

== ENCOUNTER 2024-07-11 17:14 | Emergency (ER) | payer BC, SELFPAY ==
[2024-07-11] VITALS (15 sets, daily range): BP systolic 116–124; BP diastolic 55–73; PULSE 67–71; RESP 15; TEMP 36.3; O2SAT 99–100
--- NOTE | ~2024-07-11 | XR_ITS ---
EXAMINATION: XR knee RT 3V DATE: 07/11/2024 22:02 INDICATION: Right knee injury. Fall. TECHNIQUE: 3 views of right knee were obtained. COMPARISON: None. FINDINGS: Bone alignment is normal. No fracture. There is mild osteoarthritis of medial and lateral c ompartments and moderate osteoarthritis of patellofemoral compartment. No knee joint effusion. IMPRESSION: 1. Moderate right knee osteoarthritis. Reviewed, dictated and finalized at location A.
--- NOTE | ~2024-07-11 | CT_ITS ---
EXAMINATION: CT facial & cervical spine wo DATE: 07/11/2024 18:22 INDICATION: Head injury. TECHNIQUE: Computed tomography (CT) of the maxillofacial region and cervical spine was performed with out intravenous contrast. Automated exposure control and iterative reconstruction technique were empl oyed. The dose-length product was 454.48 mGy-cm. COMPARISON: None FINDINGS: MAXILLOFACIAL CT: The orbits are normal. There is a right supraorbital laceration. There is rightward deviation of the nasal septum. No fracture. The paranasal sinuses are clear. The teeth demonstrate multiple carious le sions. CERVICAL SPINE CT: There is 3 degrees dextrocurvature of cervical spine. Vertebral body heights are normal. There is mil dly decreased disc height at C5-C6. The following disc levels are specifically discussed: C2-C3: There is mild bilateral uncovertebral joint osteoarthritis. There is moderate right and severe left facet joint osteoarthritis. There is mild left neural foraminal stenosis. There is mild central canal stenosis. C3-C4: There is moderate right and mild left uncovertebral joint osteoarthritis. There is severe bila teral facet joint osteoarthritis. There is mild right neural foraminal stenosis. There is mild centra l canal stenosis. C4-C5: There is no uncovertebral joint osteoarthritis. There is severe right and mild left facet join t osteoarthritis. There is mild right neural foraminal stenosis. There is no central canal stenosis. C5-C6: There is no uncovertebral joint osteoarthritis. There is mild bilateral facet joint osteoarthr itis. There is no neural foraminal stenosis. There is no central canal stenosis. C6-C7: There is mild left uncovertebral joint osteoarthritis. There is mild right and moderate left f acet joint osteoarthritis. There is mild left neural foraminal stenosis. There is mild central canal stenosis. C7-T1: There is no uncovertebral joint osteoarthritis. There is mild right and severe left facet join t osteoarthritis. There is mild left neural foraminal stenosis. There is no central canal stenosis. IMPRESSION: 1. No fracture. 2. Mild cervical spondylosis. Reviewed, dictated and finalized at location A.
--- NOTE | ~2024-07-11 | XR_ITS ---
EXAMINATION: XR elbow RT min 3V DATE: 07/11/2024 18:13 INDICATION: Right elbow injury. Fall. TECHNIQUE: 3 views of right elbow were obtained. COMPARISON: None. FINDINGS: Bone alignment is normal. No fracture. Joint spaces are normal. No elbow joint effusion. IMPRESSION: 1. No fracture. Reviewed, dictated and finalized at location A. IMPRESSION: 1. No fracture.
--- NOTE | ~2024-07-11 | CT_ITS ---
EXAMINATION: CT brain wo con DATE: 07/11/2024 18:21 INDICATION: Head injury. TECHNIQUE: Computed tomography (CT) of the head was performed without intravenous contrast. The mA wa s adjusted according to patient size. Iterative reconstruction technique was employed. The dose-lengt h product was 681.00 mGy-cm. COMPARISON: Head CT 09/09/2017 FINDINGS: There is an old lacunar infarct in the left caudate nucleus. There is an old infarct in lef t parietal lobe. There is no intracranial hemorrhage, acute infarction, or abnormal intracranial mass lesion. The ventricles are normal in size. The paranasal sinuses are clear. There is a small left ma stoid effusion. There are are normal. IMPRESSION: 1. Old infarcts in the left caudate nucleus and left parietal lobe. Reviewed, dictated and finalized at location A.
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
[2024-07-11] MEDS: TETANUS,DIPHTHERIA,AC PERTUSSIS ADULT (0.5 ML) BOOSTRIX IM (21:07)
== END 2024-07-11 23:51 | disposition home or self-care (01) ==
PROVIDERS: Emergency Provider Emergency Medicine; PCP Emergency Medicine
DX: S01.111A Laceration without foreign body of right eyelid and periocular area, initial encounter (principal); S80.01XA Contusion of right knee, initial encounter; S80.211A Abrasion, right knee, initial encounter; S50.311A Abrasion of right elbow, initial encounter; Z23 Encounter for immunization; E78.5 Hyperlipidemia, unspecified; E11.59 Type 2 diabetes mellitus with other circulatory complications; G47.30 Sleep apnea, unspecified; F41.9 Anxiety disorder, unspecified; F32.A Depression, unspecified; Z86.73 Personal history of transient ischemic attack (TIA), and cerebral infarction without residual deficits; Z79.899 Other long term (current) drug therapy; Z79.84 Long term (current) use of oral hypoglycemic drugs; W01.0XXA Fall on same level from slipping, tripping and stumbling without subsequent striking against object, initial encounter; M17.11 Unilateral primary osteoarthritis, right knee; M47.812 Spondylosis without myelopathy or radiculopathy, cervical region
CPT/HCPCS: 12011; 70450; 70486; 72125; 73080; 73562; 90471; 90715; 99284

== ENCOUNTER 2024-07-27 10:24 | Outpatient (CLI) | payer BC, SELFPAY ==
--- NOTE | ~2024-07-27 | MR_ITS ---
MRI of the left knee Clinical history: Medial meniscus tear Technique: Coronal proton density and proton density-weighted images, sagittal proton-density and T2 fat-sat images, and axial proton-density fat-saturated images were acquired. Findings: Anterior and posterior cruciate ligaments are intact. Medial collateral ligament and the la teral collateral ligament complex are intact. Popliteus tendon is intact. There is complex tearing of the posterior horn and body of medial meniscus, with radial and oblique t ear components. No lateral meniscal tear seen. There is patchy high-grade chondral malacia of the patella, especially the apex and lateral facet, wi th areas of subchondral cystic change. There is patchy moderate chondromalacia of the femoral trochle a. There is linear subchondral insufficiency fracture at the medial tibial plateau region with surrou nding amorphous extensive marrow edema. Extensor mechanism is intact. Small joint effusion and small Song cyst are present. Impression: Complex tearing of the posterior horn and body medial assist, with radial and oblique tear components . Subchondral insufficiency fracture at the medial tibial plateau with extensive surrounding amorphous marrow edema. Advanced chondromalacia the patellofemoral compartment, as detailed above. Small joint effusion and small Song's cyst. Reviewed, dictated and finalized at [facility]. Impression: Complex tearing of the posterior horn and body medial assist, with radial and o blique tear components. Subchondral insufficiency fracture at the medial tibial plateau with extensive surrounding amorphous marrow edema. Advanced chondromalacia the patellofemoral compartment, as detailed above. Small joint effusion and small Song's cyst.
== END 2024-07-27 10:25 | disposition home or self-care (01) ==
LOC: ANHIMG 10:28
PROVIDERS: PCP Emergency Medicine; Visit Provider Orthopaedic Surgery
DX: S83.242A Other tear of medial meniscus, current injury, left knee, initial encounter (principal); S83.232A Complex tear of medial meniscus, current injury, left knee, initial encounter; M84.462A Pathological fracture, left tibia, initial encounter for fracture; M94.262 Chondromalacia, left knee; M25.462 Effusion, left knee; M71.22 Synovial cyst of popliteal space [Baker], left knee; R60.0 Localized edema; X58.XXXA Exposure to other specified factors, initial encounter
CPT/HCPCS: 73721

== ENCOUNTER 2024-08-08 12:45 | Outpatient (CLI) | payer BC, SELFPAY ==
[2024-08-08 13:43] LABS: Anion Gap 10 mmol/L (4-12); Blood Urea Nitrogen 37 mg/dL (7-17); Calcium 9.5 mg/dL (8.4-10.2); Carbon Dioxide 23 mmol/L (22-30); Chloride 106 mmol/L (98-107); Estimated Glomerular Filt Rate 29; Glucose 98 mg/dL (65-110); Potassium 4.6 mmol/L (3.4-5.0); Sodium 139 mmol/L (137-145)
[2024-08-08 13:47] LABS: Partial Thromboplastin Time 25.9 Seconds (22.3-36.8); Prothrombin Time 13.1 Seconds (11.1-14.7)
== END 2024-08-08 12:46 | disposition home or self-care (01) ==
LOC: ANHLAB 12:46
PROVIDERS: PCP Emergency Medicine; Visit Provider Anesthesiology
DX: N18.31 Chronic kidney disease, stage 3a (principal); E11.22 Type 2 diabetes mellitus with diabetic chronic kidney disease; Z01.818 Encounter for other preprocedural examination
CPT/HCPCS: 36415; 80048; 85610; 85730

== ENCOUNTER 2024-08-22 01:12 | Day surgery (SDC) | payer BC, SELFPAY ==
[2024-08-07 15:19] VITALS: BMI 36.5
--- NOTE | 2024-08-07 15:24 | PC.NURSE ---
Addendum entered by Avila Blount RN 08/08/24 11:43: Patient instructed to hold aspirin starting today. Original Note: Report to the Outpatient Waiting Room, entrance under the green pavilion located off [facility], at time _1000_ on date _[id number]_. Planned Procedure Time: _1200_.? Time changes happen often and if your time is changed the preop area will call you the afternoon before. - You and your visitor will be asked to self-screen and do not enter if you have any COVID symptoms. Please call surgeon if you need to reschedule. - A mask is optional within the hospital at this time. Patients may have clear liquids (water, carbonated beverages, clear teas, apple juice) until 3 hours prior to surgery with a maximum of 20 ounces. - No food from midnight until time of surgery and no smoking Take only the following medications with a SIP of water on the morning of surgery: __Aripiprazole, Fluoxetine, Nifedipine and if needed may take Hydroxyzine DO NOT STOP ANY OF YOUR OTHER PRESCRIPTION MEDICATIONS PRIOR TO SURGERY EXCEPT THE FOLLOWING Medications to discontinue per physician __None Please no make-up, nail [place], hairspray, perfume, deodorant, or body powder the day of surgery.? No jewelry (including any body piercings) or valuables the day of surgery, leave them at home.? Please take a shower or bath the night before, or the morning of, surgery with an antibacterial soap.? Wear comfortable, loose fitting clothing.? - Jewelry must be removed prior to entering the operating room.? Rings and piercings that are not removed may be cut off. - The hospital will not accept responsibility for valuables.? - Please leave all valuables, including medications, at home the day of surgery. If you are going home after surgery, a licensed boom truck driver must drive you home.? - NO public transportation without another adult if you receive anesthesia. - We recommend that an adult stay with you for 24 hours following discharge. - We also recommend that you do not drive, make important decision, drink alcoholic beverages, or take any drugs that were not prescribed by your health care provider for at least 24 hours after your discharge time. Follow any additional instructions given to you from your surgeon. Telephone instructions given to _Lori_and asked if any additional questions and then verbalized understanding. Patient advised to call surgeon office or pre surgery nurse liaison [phone] if any additional questions.
--- NOTE | 2024-08-09 10:21 | P.HP_ITS ---
H&P: HPI History of Present Illness Date/Time: 08/09/24 10:21 Chief Complaint: Patient has catching locking and pain left knee. She has a meniscal tear would like arthroscopic intervention. Review of Systems Musculoskeletal: Musculoskeletal: Reports arthralgias, Reports joint swelling and Reports stiffness [facility] Past Medical History Medical History Anxiety Depression Difficulty in walking Essential hypertension History of CVA (cerebrovascular accident) Hyperlipemia Numbness and tingling of left lower extremity Sleep apnea Type 2 diabetes mellitus with other circulatory complications Surgical History Surgical History No pertinent past surgical history Family History Family History Father Diabetes mellitus Family history of Parkinson's disease, Onset Age: 86 CAD (coronary artery disease) Mother Cerebrovascular accident Social History Social History Smoking status: Never smoker Tobacco type: cigarettes Second hand tobacco smoke exposure: No Alcohol intake: current Substance use: never Substance use type: does not use Do You Feel Safe in your Home?: Yes Lack of Transportation: No Lack of Food: Never True Current Housing: I Have Housing Concerned About Future Housing: No Difficulty Paying Gas/Electric Bills: No Difficulty Paying for Meds: No Currently Unemployed: YES Education: Master's Degree or Higher Difficulty w/ Childcare or Family Care: No Living arrangements: with family Additional living arrangements comments: Mother Occupation/Education: occupation 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 Gender identity (if verbalized by the patient): Female Spiritual care concerns: No Agree to blood products: Yes Meds Home Medications and Allergies Home Medications Medication Instructions Recorded Confirmed Type montelukast 10 mg tablet 10 mg PO .DAVID 07/08/21 08/07/24 History omeprazole 40 mg capsule,delayed 40 mg PO DAILY 07/08/21 08/07/24 History release fluoxetine 40 mg capsule 80 mg PO DAILY 06/17/22 08/07/24 History quetiapine 50 mg tablet 50 mg PO HS 08/01/23 08/07/24 History aspirin 325 mg tablet 325 mg PO DAILY 09/14/23 08/07/24 History nifedipine 60 mg tablet,extended 60 mg PO DAILY 09/14/23 08/07/24 History release aripiprazole 10 mg tablet 10 mg PO DAILY 05/24/24 08/07/24 History hydroxyzine HCl 25 mg tablet 25 mg PO Q6H PRN Anxiety 05/24/24 08/07/24 History lisinopril 40 mg tablet 40 mg PO DAILY 05/24/24 08/07/24 History metformin 500 mg tablet 500 mg PO BID 05/24/24 08/07/24 History rosuvastatin 40 mg tablet 40 mg PO DAILY 05/24/24 08/07/24 History Allergies Allergy/AdvReac Type Severity Reaction Status Date / Time Penicillins Allergy Unknown unknown Verified 08/07/24 15:17 Exam Narrative: On exam patient has catching and locking of the knee. She had mechanical symptoms. She is tender along the joint line has pain to palpation manipulation. Walks with an antalgic gait. Eyes: General: appearance normal, both eyes and all related structures Neck: Neck: supple Resp: Effort & Inspection: normal respiratory effort Cardio: Rate: regular rate Rhythm: regular rhythm Radiology Reports: Comments: Patient: Hannah Da Silva MRI of the left knee Clinical history: Medial meniscus tear Technique: Coronal proton density and proton density-weighted images, sagittal proton-density and T2 fat-sat images, and axial proton-density fat-saturated images were acquired. Findings: Anterior and posterior cruciate ligaments are intact. Medial collateral ligament and the lateral collateral ligament complex are intact. Popliteus tendon is intact. There is complex tearing of the posterior horn and body of medial meniscus, with radial and oblique tear components. No lateral meniscal tear seen. There is patchy high-grade chondral malacia of the patella, especially the apex and lateral facet, with areas of subchondral cystic change. There is patchy moderate chondromalacia of the femoral trochlea. There is linear subchondral insufficiency fracture at the medial tibial plateau region with surrounding amorphous extensive marrow edema. Extensor mechanism is intact. Small joint effusion and small Song cyst are present. Impression: Complex tearing of the posterior horn and body medial assist, with radial and oblique tear components. Subchondral insufficiency fracture at the medial tibial plateau with extensive surrounding amorphous marrow edema. Advanced chondromalacia the patellofemoral compartment, as detailed above. Small joint effusion and small Song's cyst. Reviewed, dictated and finalized at [facility]. Dictated By: Cleveland Hallman MD 07/27/24 1142 Elbow X-Ray 07/11/24 Knee X-Ray 07/11/24 Knee MRI 07/27/24 Cervical Spine MRI 05/28/24 Thoracic Spine MRI 05/28/24 Lumbar Spine X-Ray 05/25/24 Lumbar Spine MRI 07/10/24 Assessment and Plan Assessment and plan (1) Acute medial meniscus tear of left knee: Code(s): S83.242A - Other tear of medial meniscus, current injury, left knee, initial encounter Status: Acute Assessment and Plan: Patient has good size meniscal tear left. She has failed conservative treatment like to consider arthroscopic intervention. I would discuss this risks benefits limitations and alternatives in detail. Will proceed with arthroscopy partial meniscectomy proceed as indicated left knee. She understands and agrees will proceed per her request. Of note is the fact her BMI is almost 37 which makes it technically more difficult operation.
--- NOTE | 2024-08-16 13:22 | PC.NURSE ---
Report to the Outpatient Waiting Room, entrance under the green pavilion located off [facility], at time _0800_ on date _[id number]_. Planned Procedure Time: _1000_.? Time changes happen often and if your time is changed the preop area will call you the afternoon before. - You and your visitor will be asked to self-screen and do not enter if you have any COVID symptoms. Please call surgeon if you need to reschedule. - A mask is optional within the hospital at this time. Patients may have clear liquids (water, carbonated beverages, clear teas, apple juice) until 3 hours prior to surgery with a maximum of 20 ounces. - No food from midnight until time of surgery and no smoking Take only the following medications with a SIP of water on the morning of surgery: ___Aripiprazole, Fluoxetine, Nifedipine and if needed may brendan Hydorxyzine DO NOT STOP ANY OF YOUR OTHER PRESCRIPTION MEDICATIONS PRIOR TO SURGERY EXCEPT THE FOLLOWING Medications to discontinue per physician ___Aspirin____ Date to take last sxou___[phone]___ Please no make-up, nail faroese, hairspray, perfume, deodorant, or body powder the day of surgery.? No jewelry (including any body piercings) or valuables the day of surgery, leave them at home.? Please take a shower or bath the night before, or the morning of, surgery with an antibacterial soap.? Wear comfortable, loose fitting clothing.? - Jewelry must be removed prior to entering the operating room.? Rings and piercings that are not removed may be cut off. - The hospital will not accept responsibility for valuables.? - Please leave all valuables, including medications, at home the day of surgery. If you are going home after surgery, a licensed escort vehicle driver must drive you home.? - NO public transportation without another adult if you receive anesthesia. - We recommend that an adult stay with you for 24 hours following discharge. - We also recommend that you do not drive, make important decision, drink alcoholic beverages, or take any drugs that were not prescribed by your health care provider for at least 24 hours after your discharge time. Follow any additional instructions given to you from your surgeon. Telephone instructions given to _Hannah___and asked if any additional questions and then verbalized understanding. Patient advised to call surgeon office or pre surgery nurse liaison [phone] if any additional questions.
[2024-08-22] VITALS (11 sets, daily range): BP systolic 101–119; BP diastolic 44–66; PULSE 77–98; RESP 14–18; TEMP 36.4; O2SAT 96–100
[2024-08-22] MEDS: LIDO 1%/EPINEPHRINE 1:100,000 20 ML VIAL 30 ML INFILTRATE (08:32)
[2024-08-22] MEDS: KETOROLAC 15 MG/ML VIAL (*BKC) IV PUSH (09:00)
[2024-08-22] MEDS: LACTATED RINGERS 1,000 ML 30 ML IV CONT ×3 (09:00→11:19)
[2024-08-22] MEDS: ACETAMINOPHEN 500 MG TABLET 1000 MG PO (09:00)
[2024-08-22 09:14] LABS: Glucose Point of Care 119 mg/dl (65-105)
--- NOTE | 2024-08-22 09:27 | WPDHPUPDATE1 ---
History and Physical Update Update Date/Time: 08/22/24 09:27 History and Physical has been reviewed, including an updated exam of the patient. There are NO changes in the patient's condition. Risks, benefits, and alternatives have been discussed and questions answered. Patient agrees to proceed with procedure.
--- NOTE | 2024-08-22 10:13 | WPDANESEPPF ---
Anes - Initial Pre Proc Eval Procedure: Operation Date: 08/22/24 10:00 Proposed Procedures p Left Knee Arthroscopy, Partial Meniscectomy, Proceed As Indicated - Mustapha Curiel MD Date/Time: 08/22/24 10:13 Surgeon: Mustapha Curiel MD Pre Op Diagnosis: left medial meniscal tear Patient Data Age: 58 Gender: F Height: 1.68 m Weight: 98.7 kg Last Vital Signs Temp 97.5 F L 08/22/24 09:00 Pulse 98 08/22/24 09:00 Resp 16 08/22/24 09:00 BP 119/66 08/22/24 09:00 Pulse Ox 98 08/22/24 09:00 O2 Del Method Room Air 08/22/24 09:00 Allergies Allergy/AdvReac Type Severity Reaction Status Date / Time Penicillins Allergy Unknown unknown Verified 08/22/24 09:46 Home Medications Medication Instructions Recorded Confirmed Type montelukast 10 mg tablet 10 mg PO .DAVID 07/08/21 08/16/24 History omeprazole 40 mg capsule,delayed 40 mg PO DAILY 07/08/21 08/16/24 History release fluoxetine 40 mg capsule 80 mg PO DAILY 06/17/22 08/22/24 History quetiapine 50 mg tablet 50 mg PO HS 08/01/23 08/22/24 History aspirin 325 mg tablet 325 mg PO DAILY 09/14/23 08/22/24 History nifedipine 60 mg tablet,extended 60 mg PO DAILY 09/14/23 08/22/24 History release aripiprazole 10 mg tablet 10 mg PO DAILY 05/24/24 08/22/24 History hydroxyzine HCl 25 mg tablet 25 mg PO Q6H PRN Anxiety 05/24/24 08/22/24 History lisinopril 40 mg tablet 40 mg PO DAILY 05/24/24 08/22/24 History metformin 500 mg tablet 500 mg PO BID 05/24/24 08/22/24 History rosuvastatin 40 mg tablet 40 mg PO DAILY 05/24/24 08/16/24 History Laboratory Tests 08/22/24 09:10 POC Capillary Glucose 119 H mg/dl (65-105) Patient hx anesthesia problems: none Family hx anesthesia problems: none Results Review: All pre-operative results and documents have been reviewed as part of the pre-operative evaluation. [facility] Past Medical History Medical History Anxiety Depression Difficulty in walking Essential hypertension History of CVA (cerebrovascular accident) Hyperlipemia Numbness and tingling of left lower extremity Sleep apnea Type 2 diabetes mellitus with other circulatory complications Surgical History Surgical History No pertinent past surgical history Family History Family History Father Diabetes mellitus Family history of Parkinson's disease, Onset Age: 86 CAD (coronary artery disease) Mother Cerebrovascular accident Social History Social History Smoking status: Never smoker Tobacco type: cigarettes Second hand tobacco smoke exposure: No Alcohol intake: current Substance use: never Substance use type: does not use Do You Feel Safe in your Home?: Yes Lack of Transportation: No Lack of Food: Never True Current Housing: I Have Housing Concerned About Future Housing: No Difficulty Paying Gas/Electric Bills: No Difficulty Paying for Meds: No Currently Unemployed: YES Education: Master's Degree or Higher Difficulty w/ Childcare or Family Care: No Living arrangements: with family Additional living arrangements comments: Mother Occupation/Education: occupation 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 DM fsbs 119, JUSTIN not on CPAP, hx of CVA 2016 without residual per pt, CKD 3, HTN. Informed Consent: The patient's anesthetic plan and its attendant risks and benefits were discussed with the patient/family/POA. Questions were solicited and answers provided to the satisfaction of the patient/family/POA.
[2024-08-22] MEDS: ceFAZolin 2 GM/D5W 50 ML 2 GM/50 ML BAG IVPB (10:17)
--- NOTE | 2024-08-22 11:10 | W.PM.PROC2 ---
Procedure Note - Detailed Date of Procedure 08/22/24 Pre-op Diagnosis left medial meniscal tear Post-op Diagnosis Same Procedure Performed LEFT knee arthroscopy with partial meniscectomy Surgeon Mustapha Curiel MD Anesthesia General Description of Procedure Patient brought to operating room # 8. An anesthetic was administered. The knee was sterilely prepped and draped in the usual manner. Standard portals were used. Superior medial portal was used for the outflow cannula, inferior lateral portal was used for the scope, inferior medial portal was used for the instruments. Arthroscopy was performed, the patellar femoral joint degenerative changes. The medial compartment showed a complex tear. The lateral compartment showed fraying. The ACL was intact. Using baskets and faustino the meniscal tear was trimmed back to a stable base so the nothing further could be pulled into the joint. Any loose or delaminated fragments were gently trimmed to a stable base. At this point the instruments were withdrawn, sutures placed and patient left the operating room in satisfactory condition. Grade 2-3 changes were seen throughout. Estimated Blood Loss 20 Drains No Packing No Pathology None sent Complications No immediate complications Condition Stable Disposition PACU [facility] Billing Surgery - Charge Forward: Surgery Billing ([id number] MMT LEFT Scope/Partial Menis)
[2024-08-22 11:26] LABS: Glucose Point of Care 107 mg/dl (65-105)
== END 2024-08-22 13:52 | disposition home or self-care (01) ==
PROVIDERS: PCP Emergency Medicine; Visit Provider Orthopaedic Surgery
PROC: (CPT 29870; principal; 2024-08-22 10:00)
DX: M23.332 Other meniscus derangements, other medial meniscus, left knee (principal); E11.9 Type 2 diabetes mellitus without complications; I10 Essential (primary) hypertension; E78.5 Hyperlipidemia, unspecified; F41.9 Anxiety disorder, unspecified; F32.A Depression, unspecified; Z86.73 Personal history of transient ischemic attack (TIA), and cerebral infarction without residual deficits; Z79.82 Long term (current) use of aspirin; Z79.84 Long term (current) use of oral hypoglycemic drugs; E66.9 Obesity, unspecified; Z68.35 Body mass index [BMI] 35.0-35.9, adult
CPT/HCPCS: 29881; 82948; A9270; J0690; J1100; J1885; J2003; J2004; J2250; J2270; J2405; J2704; J3010; J7120

== ENCOUNTER 2024-11-28 10:05 | Outpatient (CLI) | payer BC, SELFPAY ==
--- OUTSIDE RECORDS SUMMARY | 2024-11-28 10:17 | XMS_ITS ---
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 Role Phone Alebr Roberts MD Primary Care Provider Carline Rust Unavailable [phone] Allergies Allergen (clinical drug ingredient) Drug/Non Drug Allergy documented on EMR Reaction Allergy Type Onset Date Status Penicillin Unknown Drug Allergy Active REASON FOR VISIT 1 month f/u Medications Medication SIG (Take, Route, Frequency, Duration) Notes Start Date End Date Status FLUoxetine HCl 20 MG 1 tablet Orally Once a day for 90 days NO PA needed 09/10/2024 Active buPROPion HCl ER (XL) 150 MG 1 tablet Orally Once a day for 30 days Active ARIPiprazole 10 MG Take 1 tablet by mouth once daily for 30 Active ARIPiprazole 10 MG 1 tablet Oral Once a day for 30 days Active FLUoxetine HCl 40 MG 1 capsule Oral Once a day for 30 days change to 60 mg daily Active Rosuvastatin Calcium 40 MG TAKE 1 TABLET BY MOUTH ONCE DAILY Oral for 90 Days Active NIFEdipine ER Osmotic Release 60 MG TAKE 1 TABLET BY MOUTH ONCE DAILY Oral for 90 Days Active busPIRone HCl 5 MG 1 tablet Orally Twice a day for 30 days 10/09/2024 01/07/2025 Active Omeprazole 40 MG TAKE 1 CAPSULE BY MOUTH ONCE DAILY BEFORE A MEAL Oral for 90 Days Active Montelukast Sodium 10 MG Oral for 90 Days Active Calcium Active Vitamin D3 Active metFORMIN HCl 500 MG 1 tablet with a meal Oral twice a day for 90 days Active Lisinopril 40 MG Oral for 90 Days Not-Taking Aspirin 325 MG 1 tablet Orally Once a day Active hydrOXYzine HCl 50 MG 1 tablet Oral twice a day for 30 days As needed increased on 08/13/24 Active Social History Tobacco Use: Social History Observation Description Date Details (start date - stop date) Never Smoker NA - NA Sex Assigned At : Social History Observation Description Sex Assigned At Female Household Question Answer Notes Marital status: single Number of adults in household: 2 LIVES WITH MOTHER Number of children in household: 0 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 No Tobacco Control (Standard) Question Answer Notes Tobacco use: Nonsmoker Vital Signs Blood pressure systolic 119 mm Hg 10/09/20 24 Blood pressure diastolic 80 mm Hg 024 Heart Rate 80 /min 10/09/2024 Height 66 in 10/09/2024 Weight 222.2 lbs 10/09/2024 BMI 35.86 kg/m2 10/09/2024 Height-cm 167.64 cm 10/09/2024 Weight-kg 100.79 kg 10/09/2024 Encounters Encounter Location Date Provider Diagnosis [facility] [address] [facility] [address] [place] [address] 10/09/2024 Carline Naqvi MDD (major depressive disorder), severe F32.2 ; MACARIO (generalized anxiety disorder) F41.1 ; Primary insomnia F51.01 ; Passive suicidal ideations R45.851 and Memory loss R41.3 Assessments Encounter Date Diagnosis (ICD Code) Assessment Notes Treatment Notes Treatment Clinical Notes Section Notes 10/09/2024 MDD (major depressive disorder), severe (ICD-10 - F32.2) Electronic Prior Authorization was requested for FLUoxetine HCl 20 MG Capsule. Provider can order medication once approval received., Learning About Depression Screening material was published, Learning About Depression material was published, Depression Treatment: Care Instructions material was published, Learning About Mood Disorders material was published, Suicidal Thoughts and Behavior: Care Instructions material was published 1. 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 - hx Passive suicidal thoughts once a week, no plan or intent. - Plan: Encourage continued therapy sessions (every other week). Provide suicide hotline number (988). 2. Anxiety - She reports hydroxyzine not noticeably effective. - Plan: Add Buspar 5 mg twice a day for anxiety and depression educated on all rx a. hydroxyzine to 50 mg twice daily as needed. no refill needed b. Monitor for side effects (dry mouth, constipation, fatigue). c. Reassess effectiveness at next appointment. 3. Vitamin D Deficiency and Calcium Supplementation - Currently on calcium and vitamin D3 supplements. - Plan: Continue current supplements and monitor her vitamin D levels. 4. Short term memory loss HX CVA 2016 refer to PCP/Neurologist - reported has neurologist to see 2024 appt will do SLUMS = 27 09/10/24 5. Medication Refills - - Plan: Continue current medications as prescribed and reassess at her next appointment. 6. Urine Sample - Plan: Collect UDS sample for routine testing. educated on all medications, benefits, side effects and risk, and educated on depression, anxiety, and ADHD, mood d/o and educated on compliance of medications, metabolic and movement d/o education appointment is, continue therapy discussion with patient about course of treatment and patient instructions. education on serotonin syndrome SSRI/SNRI side effects discussed including but not limited to, gastric upset, nausea, vomiting, diarrhea and/or constipation, weight changes, sexual side effects including loss of libido, increased suicidal thoughts/behaviors in children and young adults, and serotonin syndrome. Second generation antipsychotics (SGAs) have metabolic syndrome issues with weight gain, increase in prolactin, increased waist circumference, increased lipids, and increased glucose. Thus routine monitoring of weight, metabolic labs, etc. is indicated. A general rank ordering of antipsychotics that have the greatest to the least risk of metabolic effects is olanzapine, quetiapine, risperidone, ziprasidone, and aripiprazole. However, weight gain can occur with all of these drugs and considerable variability exists among patients receiving the same drug regarding the risk of metabolic effects. Anti-psychotic agents not only increase the risk of metabolic disorder, they also increase the risk of CVA, akathisia, and movement disorders including EPS or tardive dyskinesia (more common with first generation antipsychotics) and more. Elderly- discussed risks, cognition, sedation, falls, metabolic, movement and atypical antipsychotics carry a black-box warning for increased risk of and cerebrovascular events in dementia. Medication Management and Follow-Up - Plan: - Schedule follow-up appointments every 1-3 months to monitor the patient's response to the medication regimen. - Reinforce the importance of avoiding recreational drug use due to potential neurotoxicity and interactions with prescribed medications. 10/09/2024 MACARIO (generalized anxiety disorder) (ICD-10 - F41.1) Learning About Generalized Anxiety Disorder material was published, Generalized Anxiety Disorder: Care Instructions material was published, Learning About Anxiety Disorders material was published, Learning About Transcranial Magnetic Stimulation (TMS) material was published 1. 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 - hx Passive suicidal thoughts once a week, no plan or intent. - Plan: Encourage continued therapy sessions (every other week). Provide suicide hotline number (604). 2. Anxiety - She reports hydroxyzine not noticeably effective. - Plan: Add Buspar 5 mg twice a day for anxiety and depression educated on all rx a. hydroxyzine to 50 mg twice daily as needed. no refill needed b. Monitor for side effects (dry mouth, constipation, fatigue). c. Reassess effectiveness at next appointment. 3. Vitamin D Deficiency and Calcium Supplementation - Currently on calcium and vitamin D3 supplements. - Plan: Continue current supplements and monitor her vitamin D levels. 4. Short term memory loss HX CVA 2016 refer to PCP/Neurologist - reported has neurologist to see 2024 appt will do SLUMS = 27 09/10/24 5. Medication Refills - - Plan: Continue current medications as prescribed and reassess at her next appointment. 6. Urine Sample - Plan: Collect UDS sample for routine testing. educated on all medications, benefits, side effects and risk, and educated on depression, anxiety, and ADHD, mood d/o and educated on compliance of medications, metabolic and movement d/o education appointment is, continue therapy discussion with patient about course of treatment and patient instructions. education on serotonin syndrome SSRI/SNRI side effects discussed including but not limited to, gastric upset, nausea, vomiting, diarrhea and/or constipation, weight changes, sexual side effects including loss of libido, increased suicidal thoughts/behaviors in children and young adults, and serotonin syndrome. Second generation antipsychotics (SGAs) have metabolic syndrome issues with weight gain, increase in prolactin, increased waist circumference, increased lipids, and increased glucose. Thus routine monitoring of weight, metabolic labs, etc. is indicated. A general rank ordering of antipsychotics that have the greatest to the least risk of metabolic effects is olanzapine, quetiapine, risperidone, ziprasidone, and aripiprazole. However, weight gain can occur with all of these drugs and considerable variability exists among patients receiving the same drug regarding the risk of metabolic effects. Anti-psychotic agents not only increase the risk of metabolic disorder, they also increase the risk of CVA, akathisia, and movement disorders including EPS or tardive dyskinesia (more common with first generation antipsychotics) and more. Elderly- discussed risks, cognition, sedation, falls, metabolic, movement and atypical antipsychotics carry a black-box warning for increased risk of and cerebrovascular events in dementia. Medication Management and Follow-Up - Plan: - Schedule follow-up appointments every 1-3 months to monitor the patient's response to the medication regimen. - Reinforce the importance of avoiding recreational drug use due to potential neurotoxicity and interactions with prescribed medications. 10/09/2024 Primary insomnia (ICD-10 - F51.01) Learning About Sleeping Well material was published 1. 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 - hx Passive suicidal thoughts once a week, no plan or intent. - Plan: Encourage continued therapy sessions (every other week). Provide suicide hotline number (530). 2. Anxiety - She reports hydroxyzine not noticeably effective. - Plan: Add Buspar 5 mg twice a day for anxiety and depression educated on all rx a. hydroxyzine to 50 mg twice daily as needed. no refill needed b. Monitor for side effects (dry mouth, constipation, fatigue). c. Reassess effectiveness at next appointment. 3. Vitamin D Deficiency and Calcium Supplementation - Currently on calcium and vitamin D3 supplements. - Plan: Continue current supplements and monitor her vitamin D levels. 4. Short term memory loss HX CVA 2017 refer to PCP/Neurologist - reported has neurologist to see 2024 appt will do SLUMS = 27 09/10/24 5. Medication Refills - - Plan: Continue current medications as prescribed and reassess at her next appointment. 6. Urine Sample - Plan: Collect UDS sample for routine testing. educated on all medications, benefits, side effects and risk, and educated on depression, anxiety, and ADHD, mood d/o and educated on compliance of medications, metabolic and movement d/o education appointment is, continue therapy discussion with patient about course of treatment and patient instructions. education on serotonin syndrome SSRI/SNRI side effects discussed including but not limited to, gastric upset, nausea, vomiting, diarrhea and/or constipation, weight changes, sexual side effects including loss of libido, increased suicidal thoughts/behaviors in children and young adults, and serotonin syndrome. Second generation antipsychotics (SGAs) have metabolic syndrome issues with weight gain, increase in prolactin, increased waist circumference, increased lipids, and increased glucose. Thus routine monitoring of weight, metabolic labs, etc. is indicated. A general rank ordering of antipsychotics that have the greatest to the least risk of metabolic effects is olanzapine, quetiapine, risperidone, ziprasidone, and aripiprazole. However, weight gain can occur with all of these drugs and considerable variability exists among patients receiving the same drug regarding the risk of metabolic effects. Anti-psychotic agents not only increase the risk of metabolic disorder, they also increase the risk of CVA, akathisia, and movement disorders including EPS or tardive dyskinesia (more common with first generation antipsychotics) and more. Elderly- discussed risks, cognition, sedation, falls, metabolic, movement and atypical antipsychotics carry a black-box warning for increased risk of and cerebrovascular events in dementia. Medication Management and Follow-Up - Plan: - Schedule follow-up appointments every 1-3 months to monitor the patient's response to the medication regimen. - Reinforce the importance of avoiding recreational drug use due to potential neurotoxicity and interactions with prescribed medications. 10/09/2024 Passive suicidal ideations (ICD-10 - R45.851) discussed suicide safety plan and crisis hotline number and when to seek emergency services. , Suicidal Thoughts in a Family Member: Care Instructions material was published, Learning About Making a Suicide Safety Plan material was published, Learning About How to Get Help During a Mental Health Crisis material was published 1. 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 - hx Passive suicidal thoughts once a week, no plan or intent. - Plan: Encourage continued therapy sessions (every other week). Provide suicide hotline number (491). 2. Anxiety - She reports hydroxyzine not noticeably effective. - Plan: Add Buspar 5 mg twice a day for anxiety and depression educated on all rx a. hydroxyzine to 50 mg twice daily as needed. no refill needed b. Monitor for side effects (dry mouth, constipation, fatigue). c. Reassess effectiveness at next appointment. 3. Vitamin D Deficiency and Calcium Supplementation - Currently on calcium and vitamin D3 supplements. - Plan: Continue current supplements and monitor her vitamin D levels. 4. Short term memory loss HX CVA 2017 refer to PCP/Neurologist - reported has neurologist to see 2024 appt will do SLUMS = 27 09/10/24 5. Medication Refills - - Plan: Continue current medications as prescribed and reassess at her next appointment. 6. Urine Sample - Plan: Collect UDS sample for routine testing. educated on all medications, benefits, side effects and risk, and educated on depression, anxiety, and ADHD, mood d/o and educated on compliance of medications, metabolic and movement d/o education appointment is, continue therapy discussion with patient about course of treatment and patient instructions. education on serotonin syndrome SSRI/SNRI side effects discussed including but not limited to, gastric upset, nausea, vomiting, diarrhea and/or constipation, weight changes, sexual side effects including loss of libido, increased suicidal thoughts/behaviors in children and young adults, and serotonin syndrome. Second generation antipsychotics (SGAs) have metabolic syndrome issues with weight gain, increase in prolactin, increased waist circumference, increased lipids, and increased glucose. Thus routine monitoring of weight, metabolic labs, etc. is indicated. A general rank ordering of antipsychotics that have the greatest to the least risk of metabolic effects is olanzapine, quetiapine, risperidone, ziprasidone, and aripiprazole. However, weight gain can occur with all of these drugs and considerable variability exists among patients receiving the same drug regarding the risk of metabolic effects. Anti-psychotic agents not only increase the risk of metabolic disorder, they also increase the risk of CVA, akathisia, and movement disorders including EPS or tardive dyskinesia (more common with first generation antipsychotics) and more. Elderly- discussed risks, cognition, sedation, falls, metabolic, movement and atypical antipsychotics carry a black-box warning for increased risk of and cerebrovascular events in dementia. Medication Management and Follow-Up - Plan: - Schedule follow-up appointments every 1-3 months to monitor the patient's response to the medication regimen. - Reinforce the importance of avoiding recreational drug use due to potential neurotoxicity and interactions with prescribed medications. 10/09/2024 Memory loss (ICD-10 - R41.3) 1. Major Depressive Disorder- continue to have depression - AIMS= 0 09/10/24 1 missing tooth hx CVA effected left side and slower on side 2016- memory - short term loss - Current medications: Prozac 60 mg daily - improved numbness with GDR discuss and educated on medications options Wellbutrin XL 150 mg daily in am Continue Aripiprazole 10mg, hydroxyzine 25mg as needed. - hx Passive suicidal thoughts once a week, no plan or intent. - Plan: Encourage continued therapy sessions (every other week). Provide suicide hotline number (390). 2. Anxiety - She reports hydroxyzine not noticeably effective. - Plan: Add Buspar 5 mg twice a day for anxiety and depression educated on all rx a. hydroxyzine to 50 mg twice daily as needed. no refill needed b. Monitor for side effects (dry mouth, constipation, fatigue). c. Reassess effectiveness at next appointment. 3. Vitamin D Deficiency and Calcium Supplementation - Currently on calcium and vitamin D3 supplements. - Plan: Continue current supplements and monitor her vitamin D levels. 4. Short term memory loss HX CVA 2016 refer to PCP/Neurologist - reported has neurologist to see 2024 appt will do SLUMS = 27 09/10/24 5. Medication Refills - - Plan: Continue current medications as prescribed and reassess at her next appointment. 6. Urine Sample - Plan: Collect UDS sample for routine testing. educated on all medications, benefits, side effects and risk, and educated on depression, anxiety, and ADHD, mood d/o and educated on compliance of medications, metabolic and movement d/o education appointment is, continue therapy discussion with patient about course of treatment and patient instructions. education on serotonin syndrome SSRI/SNRI side effects discussed including but not limited to, gastric upset, nausea, vomiting, diarrhea and/or constipation, weight changes, sexual side effects including loss of libido, increased suicidal thoughts/behaviors in children and young adults, and serotonin syndrome. Second generation antipsychotics (SGAs) have metabolic syndrome issues with weight gain, increase in prolactin, increased waist circumference, increased lipids, and increased glucose. Thus routine monitoring of weight, metabolic labs, etc. is indicated. A general rank ordering of antipsychotics that have the greatest to the least risk of metabolic effects is olanzapine, quetiapine, risperidone, ziprasidone, and aripiprazole. However, weight gain can occur with all of these drugs and considerable variability exists among patients receiving the same drug regarding the risk of metabolic effects. Anti-psychotic agents not only increase the risk of metabolic disorder, they also increase the risk of CVA, akathisia, and movement disorders including EPS or tardive dyskinesia (more common with first generation antipsychotics) and more. Elderly- discussed risks, cognition, sedation, falls, metabolic, movement and atypical antipsychotics carry a black-box warning for increased risk of and cerebrovascular events in dementia. Medication Management and Follow-Up - Plan: - Schedule follow-up appointments every 1-3 months to monitor the patient's response to the medication regimen. - Reinforce the importance of avoiding recreational drug use due to potential neurotoxicity and interactions with prescribed medications. Plan Of Treatment Medication Medication Name Sig Start Date Stop Date Notes FLUoxetine HCl 20 MG 1 tablet Orally Onc e a day for 90 days 09/10/2024 NO PA needed buPROPion HCl ER (XL) 150 MG 1 tablet Orally Once a day for 30 days ARIPiprazole 10 MG 1 tablet Oral Once a day for 30 days FLUoxetine HCl 40 MG 1 capsule Oral Once a day for 30 days change to 60 mg daily busPIRone HCl 5 MG 1 tablet Orally Twice a day for 30 days 10/09/2024 01/07/2025 Treatment Notes Assessment Notes MDD (major depressive disorder), severe Electronic Prior Authorization was requested for FLUoxetine HCl 20 MG Capsule. Provider can order medication once approval received., Learning About Depression Screening material was published, Learning About Depression material was published, Depression Treatment: Care Instructions material was published, Learning About Mood Disorders material was published, Suicidal Thoughts and Behavior: Care Instructions material was published MACARIO (generalized anxiety disorder) Learn ing About Generalized Anxiety Disorder material was published, Generalized Anxiety Disorder: Care Instructions material was published, Learning About Anxiety Disorders material was published, Learning About Transcranial Magnetic Stimulation (TMS) material was published Primary insomnia Learning About Sleep ing Well material was published Passive suicidal ideations discussed luis eduardo cide safety plan and crisis hotline number and when to seek emergency services. , Suicidal Thoughts in a Family Member: Care Instructions material was published, Learning About Making a Suicide Safety Plan material was published, Learning About How to Get Help During a Mental Health Crisis material was published Next Appt Details Follow Up: 6 Weeks, Reason: f/u Buspar Provider Name:Carline Naqvi , 02/15/2025 02:00:00 PM, [address], [facility] [address], [place], [address], Progress Notes * XIOMARA CHAIREZB:1965 (58 yo F)Acc No.[id number]:10/09/2024 Patient: OSMAN DE SANTIAGO Provider: BARBIE CANDELARIAHNP :1965 A ge:58 Y S ex:Female Date:10/09/2024 Phone: Address:[address] [place], [place] [phone] Pcp:Alber Roberts MD Subjective: * Chief Complaints: * 1 . 1 month f/u. * HPI: D epression Screening: follow up f or depression, anxiety, sleep, chornic since last visit reported stop Seroquel, decrease Prozac 60 mg and on Wellbutrin, I feel about same wiht depression and anxiety I may be a little less numb, with less Prozac, sleep been pretty good, average 8 hours, appetite been little better, I still have r estless and fidgety, I get anxiety I feel depression is mentally there, I feel sad, down, hopeless and helpless, denies A/V/C hallucinations and reported never had it, I feel like I never had yumi or hypomania, agitation and irritable, I live with my mother with her irritable and also c ontribute to depression and anxiety, concentration and focus not very good, motivation and interest not very much, I am doing things around house and ADLS memory short term not as good as fdc memory and been going on few years now,, I have think of , no passive thoughts no plans or intent I have had those thoughts a long time I have seen slight improvement with rx and appetite fair I eat enough I taken self out to eat few times. I lost weight 40 pounds since . Noted slow walking - recent left knee surgery slow to respond to questions lives with mom she is 87 years old, and no children I live with my mother and no children, I take care self and my mom DENIES SI/HI, no past attempts, HX chornic Passive sucidal thoughts no plan or intent, psychiatric hospital x2, 1986- anxiety hard to function v oluntary and then involuntary in 12/30 suicidal ideation no plans or intent, thoughts OD, no self cutting or self harm, no FH, no weapons in home? I been in hospital x2, 1 time voluntary and 2nd time involuntary and had pills for OD and I called for help [place] and I called them 2 nights in a row and had to go in, ETOH- denies smoking- denies labs drugs- denies- UDS done 09/10/24 rx hx Seroquel, Abilify, Prozac, Vistaril, Lexapro, Celexa, Zoloft, HX She has been seeing her primary care physician for medication management since her previous psychiatrist in November 2023. Medications: She has been taking Prozac for a couple of years, aripiprazole for almost as long, quetiapine since December 2022, and hydroxyzine 50 mg BID. S he also takes lisinopril, metformin, nifedipine, rosuvastatin, montelukast, omeprazole, prednisone, calcium, and a regular-sized aspirin (325 mg) for various health conditions. Other Symptoms: She has a history of high cholesterol, high blood pressure, asthma, and type 2 diabetes. 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 AIMS= 0 1 11/11/23 SLUMS= 27 09/10/24. MACARIO-7 (2018 Edition) F eeling nervous, anxious, or on edge?Nearly every day, N ot being able to stop or control worrying N early every day, W orrying too much about different things N early every day, T rouble relaxing N early every day, B eing so restless that it is hard to sit still N early every day, B ecoming easily annoyed or irritable S everal days, F eeling afraid as if something awful might happen Nearly every day, T otal MACARIO-7 Score 2 0, I f you checked any problems, how difficult have they made it for you to do your work, take care of things at home, or get along with other people? N ot difficult at all, I nterpretation of Total ( 15 and over) Severe. D epression screening: PHQ-9 L ittle interest or pleasure in doing things N early every day, F eeling down, depressed, or hopeless N early every day, T rouble falling or staying asleep, or sleeping too much N early every day, F eeling tired or having little energy N early every day, P oor appetite or overeating N early every day, F eeling bad about yourself or that you are a failure, or have let yourself or your family down N early every day, T rouble concentrating on things, such as reading the newspaper or watching television?Several days, M oving or speaking so slowly that other people could have noticed; or the opposite, being so fidgety or restless that you have been moving around a lot more than usual N early every day, T houghts that you would be better off or of hurting yourself in some way Several days (Consider Suicide Assessment Risk), T otal Score 1 6, I nterpretation?Moderately Severe Depression. I ntervention D epression Screening Findings P ositve, Follow-Up for Depression M ental health treatment assessment, Patient follow-up to return when and if necessary, S uicide Risk Assessment Performed 1 10/13/2023 , A dditional Evaluation for Depression P sychiatric interview and evaluation, N dolores of the standardized tool used for adult depression screening: P atient Health Questionnaire (PHQ-9). M anic episode: Manic N o past history of Yumi. S chizophrenia/Schizophreniform/Schizoaffective disorder/Brief reactive psychosis: Psychotic symptoms N o past history of psychosis. P sychotherapy Information: Psychotherapy History C urrently in therapy Y es, W hat kind of therapy? C BT, H ow often do you your therapist? once every other week.? S uicide Safety Plan: Suicide Safety Plan S tep 1: Warning Signs Y es, S tep 2: Internal Coping Strategies Y es, S tep 3: Social Contacts Who May Distract from the Crisis Y es, R emember, in this step, the goal is distraction from suicidal thoughts and feelings. Y es, S tep 4 Professionals and Agencies to Contact for Help Y ashleigh 9 Suicide and Crisis Lifeline Y ashleigh T ext HOME to 341295 Y ashleigh N [facility], Suicide & Crisis Hotline 5-450-423-HOPE(4550) Y ashleigh N [facility] Suicide Prevention Lifeline 7679-677-KRMB (8739) Y es, S tep 5: Making the Environment Safe Y esJovanna H istory of Presenting Problem: Pt was seen today and Urine drug screen was done. C [place]-Suicide Severity Rating Scale: Suicide Risk (CSRS-screener) i n the past one month Have you wished you were or wished you could go to sleep and not wake up? N o, i n the past one month Have you actually had any thoughts of killing yourself? N o. * ROS: S ee HPI reports n o shortness of no chest pain, no palpitations, no known heart murmur, and no ankle swelling; reported cough. r eports no abdominal pain, no nausea, n o vomiting, no constipation, normal appetite, no diarrhea, and no GERD; . r eports no headaches and no migraines but reports no loss of consciousness, no weakness, no numbness, no seizures, no dizziness, no tremor, no gait dysfunction, and no paralysis. r eports n o sleep disturbances no r estless sleep, and short term memory loss b ut reports depression, , no alcohol abuse, reported anxiety, no hallucinations, no suicidal thoughts, no mood swings, no agitation, r eports f atigue. reports no fever, no significant weight gain, and hx weight loss. r eports wears glasses. reports no incontinence, no difficulty urinating, and no increased frequency. r eports no muscle aches, no muscle weakness, no arthralgias/joint pain, no back pain, no swelling in the extremities, no neck pain, and slow gait- difficulty walking. * Medical History: H yperlipidemia, Hypertension, Diabetes insipidus type 2, CVA 2017. * Social History: T obacco Use: T obacco Control (Standard) T obacco use: N onsmoker. S exual History: S exual History H ad sex in the past 12 months (vaginal, oral, or anal)? N o. D rug/Alcohol: D o you smoke marijuana?: Denies. Do you drink alcohol?: No. 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 N o, A ia household pets? N o. M iscellaneous: A dvance Care Planning A re you your own decision-maker Y es, D o you have Power of Probation And Parole Officer for Health or Medical? N o. * Medications: T aking FLUoxetine HCl 40 MG Capsule 1 capsule Oral Once a day , Notes to Pharmacist: change to 60 mg daily, Notes: total 60 mg daily, Taking hydrOXYzine HCl 50 MG Tablet 1 tablet Oral twice a day As needed, Notes to Pharmacist: increased on 08/13/24, Taking Aspirin 325 MG Tablet 1 tablet Orally Once a day , Taking Vitamin D3 , Taking Calcium , Taking metFORMIN HCl 500 MG Tablet 1 tablet with a meal Oral twice a day , Taking Rosuvastatin Calcium 40 MG Tablet TAKE 1 TABLET BY MOUTH ONCE DAILY Oral , Taking Montelukast Sodium 10 MG Tablet Oral , Taking Omeprazole 40 MG Capsule Delayed Release TAKE 1 CAPSULE BY MOUTH ONCE DAILY BEFORE A MEAL Oral , Taking NIFEdipine ER Osmotic Release 60 MG Tablet Extended Release 24 Hour TAKE 1 TABLET BY MOUTH ONCE DAILY Oral , Taking buPROPion HCl ER (XL) 150 MG Tablet Extended Release 24 Hour 1 tablet Orally Once a day , Notes: take in am, Taking FLUoxetine HCl 20 MG Capsule 1 tablet Orally Once a day , Notes to Pharmacist: NO PA needed, Taking ARIPiprazole 10 MG Tablet Take 1 tablet by mouth once daily , Not-Taking Lisinopril 40 MG Tablet Oral , Medication List reviewed and reconciled with the patient * Allergies: P enicillin. Objective: * Vitals: B P:119/80mm Hg, HR:80/min, Wt:222.2lbs, Wt-k.79 kg, Ht: 66 in, Ht-cm: 167.64 cm, BMI:35.86Index, Body Surface Area: 2.16. * Examination: P sychiatry: Appearance: w ell-groomed, well-nourished, appears older, over weight. Abnormal body movements: n one. Affect / mood: a ppropriate, full range. Aggression: l ow. Anger control: g ood. Attention: g ood. Attitude: c ooperative. Homicidal ideation: n one. Suicidal ideation: c hronic passive improved; denies active SI, plan, or intent- no past attempts no [facility] x 2. Memory status: r eported short term memory issues for a whole - CVA 2017. Degree of awareness of surroundings: w ithin normal limits.? Delusions: n o. Hallucinations: n o. Impulse control: g ood. Insight: g ood. Intellectual functioning: a verage. Comprehension - Intellectual function: a verage. Judgement: g ood. Orientation: a wake, alert and oriented x 3. Perceptual disorders: n o perceptual disorder noted. Psychomotor activity: w ithin normal range. Speech / language: a ppropriate pitch/modulation, clear and coherent, normal rate, volume, and articulation (RVR), proper grammar used, . Thought content: a ppropriate. Thought process: i ntact. N eurology: Cognition Assessment Tools Used . Assessment: * Assessment: 1. M DD (major depressive disorder), severe - F32.2 (Primary) 2 . G AD (generalized anxiety disorder) - F41.1 3 . P rimary insomnia - F51.01 ?4. P assive suicidal ideations - R45.851 5 . M urban loss - R41.3 ? 1. Major Depressive Disorder - continue to have depression - AIMS= 0 09/10/24 1 missing tooth hx CVA effected left side and slower on side 2017- memory - short term loss - Current medications: P rozac 60 mg daily - improved numbness with GDR discuss and educated on medications options W ellbutrin XL 150 mg daily in am Continue Aripiprazole 10mg, hydroxyzine 25mg as needed. - hx Passive suicidal thoughts once a week, no plan or intent. - Plan: Braulio gonzalez continued therapy sessions (every other week). Baudilio fermin suicide hotline number (484). 2. Anxiety - She reports hydroxyzine not noticeably effective. - Plan: Add Buspar 5 mg twice a day for anxiety and depression educated on all rx a. hydroxyzine to 50 mg twice daily as needed. no refill needed b. Monitor for side effects (dry mouth, constipation, fatigue). c. Reassess effectiveness at next appointment. 3. Vitamin D Deficiency and Calcium Supplementation - Currently on calcium and vitamin D3 supplements. - Plan: Continue current supplements and monitor her vitamin D levels. 4. Short term memory loss HX CVA 2017 refer to PCP/Neurologist - reported has neurologist to see 2024 appt will do SLUMS = 27 09/10/24 5. Medication Refills - - Plan: Continue current medications as prescribed and reassess at her next appointment. 6. Urine Sample - Plan: Collect UDS sample for routine testing. educated on all medications, benefits, side effects and risk, and educated on depression, anxiety, and ADHD, mood d/o and educated on compliance of medications, metabolic and movement d/o education appointment is, continue therapy discussion with patient about course of treatment and patient instructions. education on serotonin syndrome SSRI/SNRI side effects discussed including but not limited to, gastric upset, nausea, vomiting, diarrhea and/or constipation, weight changes, sexual side effects including loss of libido, increased suicidal thoughts/behaviors in children and young adults, and serotonin syndrome. Second generation antipsychotics (SGAs) have metabolic syndrome issues with weight gain, increase in prolactin, increased waist circumference, increased lipids, and increased glucose. Thus routine monitoring of weight, metabolic labs, etc. is indicated. A general rank ordering of antipsychotics that have the greatest to the least risk of metabolic effects is olanzapine, quetiapine, risperidone, ziprasidone, and aripiprazole. However, weight gain can occur with all of these drugs and considerable variability exists among patients receiving the same drug regarding the risk of metabolic effects. Anti-psychotic agents not only increase the risk of metabolic disorder, they also increase the risk of CVA, akathisia, and movement disorders including EPS or tardive dyskinesia (more common with first generation antipsychotics) and more. Elderly- discussed risks, cognition, sedation, falls, metabolic, movement and atypical antipsychotics carry a black-box warning for increased risk of and cerebrovascular events in dementia. Medication Management and Follow-Up - Plan: - Schedule follow-up appointments every 1-3 months to monitor the patient's response to the medication regimen. - Reinforce the importance of avoiding recreational drug use due to potential neurotoxicity and interactions with prescribed medications. Plan: * Treatment: 2. G AD (generalized anxiety disorder) Start busPIRone HCl Tablet, 5 MG, 1 tablet, Orally, Twice a day, 30 days, 60 Tablet, Refills 2.? Notes: Learning About Generalized Anxiety Disorder material was published, Generalized Anxiety Disorder: Care Instructions material was published, Learning About Anxiety Disorders material was published, Learning About Transcranial Magnetic Stimulation (TMS) material was published 3. P rimary insomnia Notes: Learning About Sleeping Well material was published 4. P assive suicidal ideations Notes: discussed suicide safety plan and crisis hotline number and when to seek emergency services. , Suicidal Thoughts in a Family Member: Care Instructions material was published, Learning About Making a Suicide Safety Plan material was published, Learning About How to Get Help During a Mental Health Crisis material was published * Procedure Codes: 9 6127 BEHAV ASSMT W/SCORE & DOCD/STAND INSTRUMENT, 73041 BEHAV ASSMT W/SCORE & DOCD/STAND INSTRUMENT, G2211 VISIT COMPLEXITY INHERENT TO ONGOING CARE RELATED TO A PATIENT'S SINGLE, SERIOUS CONDITION OR A COMPLEX CONDITION * Preventive Medicine: * Follow Up: 6 Weeks (Reason: f/u Buspar) * Billing Information: * Visit Code: 22074 OFFICE OUTPATIENT VISIT 25 MINUTES DETAILED HISTORY AND EXAM/MODERATE MEDICAL DECISION MAKING. * Procedure Codes: 60307 BEHAV ASSMT W/SCORE & DOCD/STAND INSTRUMENT. 75791 BEHAV ASSMT W/SCORE & DOCD/STAND INSTRUMENT. G2211 VISIT COMPLEXITY INHERENT TO ONGOING CARE RELATED TO A PATIENT'S SINGLE, SERIOUS CONDITION OR A COMPLEX CONDITION. 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 History and Physical Notes * HPI (History of Present Illness) Category Sub-Category Detail Notes Category Not es Manic episode Manic No past history of Yumi Schizophrenia/Schiz ophreniform/Schizoa ffective disorder/Brief reactive psychosis Psychotic symptoms No past history of psychosis History of Presenting Problem Pt was seen today and Urine drug screen was done Depression screening PHQ-9 Little interest or pleasure in doing things: Nearly every day Feeling down, depressed, or hopeless: Ne lurdes every day Trouble falling or staying asleep, or sl eeping too much: Nearly every day Feeling tired or having little energy: N early every day Poor appetite or overeating: Nearly ever y day Feeling bad about yourself o r that you are a failure, or have let yourself or your family down: Nearly every day Trouble concentrating on thi ngs, such as reading the newspaper or watching television: Several days Moving or speaking so slowly that other people could have noticed; or the opposite, being so fidgety or restless that you have been moving around a lot more than usual: Nearly every day Thoughts that you would be b roseamry off or of hurting yourself in some way: Several days (Consider Suicide Assessment Risk) Total Score: 16 Interpretation: Moderately Severe Depres sherita Intervention Depression Screening Findings: P ositve Follow-Up for Depression: [facility] treatment assessment, Patient follow-up to return when and if necessary Suicide Risk Assessment Performed: 08/13 Additional Evaluation for De pression: Psychiatric interview and evaluation Name of the standardized too l used for adult depression screening:: Patient Health Questionnaire (PHQ-9) Depression Screening MACARIO-7 (2018 Edition) Niko g nervous, anxious, or on edge: Nearly every day Not being able to stop or control worryi ng: Nearly every day Worrying too much about different things : Nearly every day Trouble relaxing: Nearly every day Being so restless that it is hard to sit still: Nearly every day Becoming easily annoyed or irritable: Se veral days Feeling afraid as if something awful mariely ht happen: Nearly every day Total MACARIO-7 Score: 20 If you checked any problems, how difficult have they made it for you to do your work, take care of things at home, or get along with other people?: Not difficult at all Interpretation of Total: (15 and over) S evere Psychotherapy Information Psychotherapy History Currently in therapy: Yes What kind of therapy?: CBT How often do you your therapist?: once e very other week [place]-Suicide Severity Rating Scale Suicide Risk (CSRS-screener) in the past one month Have you wished you were or wished you could go to sleep and not wake up?: No in the past one month Have y ou actually had any thoughts of killing yourself?: No Suicide Safety Plan Suicide Safety Plan Step 1: Warning Si gns: Yes Step 2: Internal Coping Strategies: Yes Step 3: Social Contacts Who May Distract from the Crisis: Yes Remember, in this step, the goal is distraction from suicidal thoughts and feelings.: Yes Step 4 Professionals and Agencies to Con tact for Help: Yes 679 Suicide and Crisis Lifeline: Yes Text HOME to 126482: Yes [employer] Network, Suicide & Crisis Hotline 3-215-151-HOPE(7987): Yes [employer] Suicide Prevention Lifeline 2187-584-JUVW (2776): Yes Step 5: Making the Environment Safe: Yes Examination Category Sub-Category Detail Notes Category Not es Neurology Cognition Assessment Tools Used Total score SLUMS: 27 Psychiatry Appearance: well-groomed, we ll-nourished, appears older, over weight Attitude: cooperative Psychomotor activity: within normal rang e Abnormal body movements: none Attention: good Degree of awareness of surroundings: wit hin normal limits Orientation: awake, alert and tyler ented x 3 Affect / mood: appropriate, full ra nge Speech / language: appropriate pitch/mo dulation, clear and coherent, normal rate, volume, and articulation (RVR), proper grammar used, Insight: good Judgement: good Thought process: intact Thought content: appropriate Perceptual disorders: no perceptual diso rder noted Aggression: low Anger control: good Suicidal ideation: chronic passive impr erica; denies active SI, plan, or intent- no past attempts no FH hx psychiatric hospital x 2 Homicidal ideation: none Intellectual functioning: average Impulse control: good Memory status: reported short term memory issues for a whole - CVA 2017 Delusions: no Hallucinations: no Comprehension - Intellectual function: a verage
--- OUTSIDE RECORDS SUMMARY | 2024-11-28 10:17 | XMS_ITS | Referral Summary ---
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 8 Active atorvastatin (LIPITOR) 80 mg tablet Take 80 mg by mouth daily. 8 Active metFORMIN (GLUCOPHAGE) 500 mg tablet daily. 2 tablets by mouth daily 8 Active sertraline (ZOLOFT) 100 mg tablet Take 100 mg by mouth 2 (two) times a day. BID 7 Active aspirin 325 mg tablet Take 325 mg by mouth daily. Active omeprazole (PriLOSEC) 20 mg capsule Take 20 mg by mouth daily. Active fluticasone propionate (FLONASE) 50 mcg/actuation nasal spray USE 1 SPRAY(S) IN EACH NOSTRIL ONCE DAILY 0 9 Active lisinopril (PRINIVIL,ZESTRIL ) 40 mg tabletIndications :Essential hypertension Take 1 tablet (40 mg total) by mouth daily 90 tablet 3 0 Active montelukast (SINGULAIR) 10 mg tablet 0 Active ARIPiprazole (ABILIFY) 5 mg tablet 1 Active fexofenadine (TERESITA) 180 mg tablet Take 180 mg by mouth daily Active clindamycin (CLEOCIN) 300 mg capsule 2 Active Active Problems Problem Noted Date Diagnosed Date Visit for wound check 09/21/2023 Nonrheumatic aortic valve stenosis 03/12/2020 Palpitations 09/26/2019 Hypertriglyceridemia 09/26/2019 Morbid obesity with BMI of 40.0-44.9, adult 09/09 Chest tightness 12/15/2017 Status post placement of implantable loop record er 10/31/2017 Overview (10/31/2017): [employer] Reveal Loop Recorder Dx; CVA DOI 10/28/[address] Long[address] [employer] remote monitoring. 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 ellitus 10/24/2017 Hypertension associated with diabetes 10/24/2017 Cerebrovascular accident (CVA) 10/24/2017 JUSTIN (obstructive sleep apnea) 10/24/2017 Pulmonary hypertension 10/24/2017 Social History Tobacco Use Types Packs/Day Years Used Date Smoking Tobacco: Never Smokeless Tobacco: Never Alcohol Use Standard Drinks/Week Comments No 0 (1 standard drink = 0.6 oz pur e alcohol) Personal Safety Answer Date Recorded Getting School Help Needed Not on file 09/20 Comments Unknown Sex and Gender Information Value Date Recorded Sex Assigned at Not on file 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 Gender Identity Not on file Sexual Orientation Not on file Last Filed Vital Signs Vital Sign Reading Time Taken Comments Blood Pressure 92/58 04/09/2022 3:47 PM CDT Pulse 80 04/09/2022 3:47 PM CDT Temperature - - Respiratory Rate 17 03/12/2020 3:29 PM CDT Oxygen Saturation 98% 04/09/2022 3:47 PM CDT Inhaled Oxygen Concentration - - Weight 108.9 kg (240 lb) 04/09/2022 3:47 PM CDT Height 167.6 cm (5' 6 ) 04/09/2022 3:47 PM CDT Body Mass Index 38.74 04/09/2022 3:47 PM CDT Plan of Treatment Not on file Procedures Procedure Name Priority Date/Time Associated Diagnosis Comments LIPID PANEL Routine 07/18/2021 from Last 3 Months or Most Recently Relevant to Health Maintenance Results * Lipid panel (07/18/2021) SCRIBED Cholesterol, Total 220 <200 [facility] SCRIBED HDL 59 >40 [facility] SCRIB[facility] LDL 126 <100 [facility] SCRIB[facility] Triglycerides 201 <150 [facility] Blood specimen (specimen) us Historical Provider LAB BLOOD ORDERABLES Beatriz fritz Result [facility] from Last 3 Months or Most Recently Relevant to Health Maintenance [place] [address] [employer] [place] [address] [employer] [place] [place] Care Teams Boiler Mechanic Relationship Specialty Start Date End Date Jamie Roberts MD PCP - General Internal Medicine 09/21/23
--- OUTSIDE RECORDS SUMMARY | 2024-11-28 10:17 | XMS_ITS | Clinical Summary ---
Author Organization [facility] [address] Address [address] [place] [address] Care Team Providers Care Baseball Glove Stuffer Name Role Phone Jamie Roberts MD Primary Care Provider [phone] Allergies Active Allergy Reactions Criticality Noted Date [...] implantable loop record er 10/31/2017 Overview (10/31/2017): [employer] Reveal Loop Recorder Dx; CVA DOI 10/28/[address] Long[address] VTM remote monitoring. 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 ellitus 10/24/2017 Hypertension associated with diabetes 10/24/2017 Cerebrovascular accident (CVA) 10/24/2017 JUSTIN (obstructive sleep apnea) 10/24/2017 Pulmonary hypertension 10/24/2017 Surgical History Surgery Date Site/Laterality Comments HAND SURGERY Right Medical History Medical History Date Comments Diabetes mellitus (HCC) Hypertension Hyperlipidemia Sleep apnea Stroke (HCC) Depression Family History Medical History Relation Name Comments Coronary artery disease Father Parkinsonism Father Peripheral vascular disease Father Stroke Mother Relation Name Status Comments Father Alive Mother Alive Social History Tobacco Use Types Packs/Day Years [...] on file Legal Sex Female 4:48 PM [employer] Gender Identity Not on file Sexual Orientation Not on file Obstetrics History Last Filed Vital Signs Vital Sign Reading [...] 04/09/2022 3:47 PM CDT Plan of Treatment Health Maintenance Due Date Last Done Comments Albumin Creatinine Ratio, Urine 1965 Breast Cancer Screening-Mammogram 1965 Cervical Cancer Screening 1965 Colon Cancer Screening-Colonoscopy 1965 Depression Screening 1965 Hemoglobin A1C 1965 Hepatitis C Screening 1965 eGFR 1965 Dilated Eye Exam 1965 Foot Exam 1965 DTaP/Tdap/Td Vaccine (1 - Tdap) 1976 Hepatitis B Screening 12/28/1983 Regular Well Visit/Exam 18-64 12/28/1983 Pneumococcal vaccine <65 (1 of 2 - PCV) 1984 Zoster Vaccine (1 of 2) 12/28/2015 Lipid Panel 07/18/2022 07/18/2021, 12/05/2020, 09/26/2019, Additional history exists Influenza Vaccine (#1) 2024 09/12/2017, 2014 Procedures Procedure Name Priority Date/Time Associated Diagnosis Comments LIPID PANEL Routine 07/18/2021 from Last 3 Months or Most Recently Relevant to Health Maintenance Results * Lipid panel (07/18/2021) SCRIBED Cholesterol, Total 220 <200 [facility] SCRIB[facility] HDL 59 >40 [facility] SCRIB[facility] LDL 126 <100 [facility] S[facility]IB[facility] Triglycerides 201 <150 [facility] Blood specimen (specimen) us Historical Provider LAB BLOOD ORDERABLES Beatriz l Result [facility] from Last 3 Months or Most Recently Relevant to Health [place] [address] [place] [id number] [place] Care Teams Baseball Glove Stuffer Relationship Specialty Start Date End Date Jamie Roberts MD PCP - General Internal Medicine 09/21/23
--- OUTSIDE RECORDS SUMMARY | 2024-11-28 10:17 | XMS_ITS ---
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 Patient follow-up to return when and if necessary Suicide Risk Assessment Performed: 08/13 Additional Evaluation for De pression: Psychiatric interview and evaluation Name of the standardized too l used for adult depression screening:: Patient Health Questionnaire (PHQ-9) Depression Screening MACARIO-7 (2018 Edition) Feelin g nervous, anxious, or on edge: Nearly every day Not being able to stop or control worryi ng: Nearly every day Worrying too much about different things : More than hafl the days Trouble relaxing: Nearly every day Being so restless that it is hard to sit still: Nearly every day Becoming easily annoyed or irritable: Ne lurdes every day Feeling afraid as if something awful mariely ht happen: Nearly every day Total MACARIO-7 Score: 20 If you checked any problems, how difficult have they made it for you to do your work, take care of things at home, or get along with other people?: Somewhat difficult Interpretation of Total: (15 and over) S evere Psychotherapy Information Psychotherapy History Currently in therapy: Yes What kind of therapy?: CBT How often do you your therapist?: once e very other week Suicide Safety Plan Suicide Safety Plan Step 1: Warning Si gns: Yes Step 2: Internal Coping Strategies: Yes Step 3: Social Contacts Who May Distract from the Crisis: Yes Remember, in this step, the goal is distraction from suicidal thoughts and feelings.: Yes Step 4 Professionals and Agencies to Con tact for Help: Yes 767 Suicide and Crisis Lifeline: Yes Text HOME to 838849: Yes National [place], Suicide & Crisis Hotline 3-172-039-[place]OPE(8109): Yes National Suicide Prevention Lifeline 3693-886-RNHR (7972): Yes Step 5: Making the Environment Safe: Yes Examination Category Sub-Category Detail Notes Category Not es Neurology Cognition Assessment Tools Used Total score SLUMS: 27 Psychiatry Appearance: well-groomed, we ll-nourished, appears older, over weight Attitude: cooperative Psychomotor activity: retardation, decre ased Abnormal body movements: none Attention: good Degree of awareness of surroundings: wit hin normal limits Orientation: awake, alert and tyler ented x 3 Affect / mood: flat, apathetic Speech / language: appropriate pitch/mo dulation, clear and coherent, normal rate, volume, and articulation (RVR), proper grammar used, Insight: good Judgement: good Thought process: intact Thought content: appropriate Perceptual disorders: no perceptual diso rder noted Aggression: low Anger control: good Suicidal ideation: chronic passive; den ies active SI, plan, or intent- no past attempts no [facility] Homicidal ideation: none Intellectual functioning: average Impulse control: good Memory status: reported short term memory issues for a whole - CVA 2017 Delusions: no Hallucinations: no Calculation - Intellectual function: not tested Literacy - Intellectual function: not te sted Comprehension - Intellectual function: a verage Abstract / proverb - Intellectual functi on: not tested Similarities / opposites - I ntellectual function: not tested
--- OUTSIDE RECORDS SUMMARY | 2024-11-28 10:18 | XMS_ITS ---
Author Organization [facility] Address [address] [facility] [address] [place] [address] Care Team Providers Care Manager Income Tax Name Role Phone Alber Roberts MD Primary Care Provider Carline Rust Unavailable [phone] Allergies Allergen (clinical drug ingredient) Drug/Non Drug Allergy documented on EMR Reaction Allergy Type Onset Date Status Penicillin Unknown Drug Allergy Active REASON FOR VISIT f/u up Buspar Medications Medication SIG (Take, Route, Frequency, Duration) Notes Start Date End Date Status Montelukast Sodium 10 MG Oral for 90 Days Active Rosuvastatin Calcium 40 MG TAKE 1 TABLET BY MOUTH ONCE DAILY Oral for 90 Days Active ARIPiprazole 10 MG Take 1 tablet by mouth once daily for 30 Active NIFEdipine ER Osmotic Release 60 MG TAKE 1 TABLET BY MOUTH ONCE DAILY Oral for 90 Days Active Omeprazole 40 MG TAKE 1 CAPSULE BY MOUTH ONCE DAILY BEFORE A MEAL Oral for 90 Days Active Vitamin D3 Active metFORMIN HCl 500 MG 1 tablet with a meal Oral twice a day for 90 days Active Calcium Active Aspirin 325 MG 1 tablet Orally Once a day Active hydrOXYzine HCl 50 MG 1 tablet Oral twice a day for 30 days As needed increased on 08/13/24 Active ARIPiprazole 10 MG 1 tablet Oral Once a day for 30 days Active FLUoxetine HCl 20 MG 1 tablet Orally Once a day for 90 days NO PA needed Active buPROPion HCl ER (XL) 150 MG 1 tablet Orally Once a day for 30 days Active FLUoxetine HCl 40 MG 1 capsule Oral Once a day for 30 days Active Lisinopril 40 MG Oral for 90 Days Not-Taking Social History Sex Assigned At : Social History Observation Description Sex Assigned At Female Vital Signs Blood pressure systolic 128 mm Hg 11/20/19 25 Blood pressure diastolic 86 mm Hg 025 Heart Rate 85 /min 11/20/2024 Height 66 in 11/20/2024 Weight 225 lbs 11/20/2024 BMI 36.31 kg/m2 11/20/2024 Height-cm 167.64 cm 11/20/2024 Weight-kg 102.06 kg 11/20/2024 Encounters Encounter Location Date Provider Diagnosis [facility] [employer] [address] [place] [address] 11/20/2024 Carline Naqvi MDD (major depressive disorder), severe F32.2 ; MACARIO (generalized anxiety disorder) F41.1 ; Primary insomnia F51.01 ; Passive suicidal ideations R45.851 and Memory loss R41.3 Assessments Encounter Date Diagnosis (ICD Code) Assessment Notes Treatment Notes Treatment Clinical Notes Section Notes 11/20/2024 MDD (major depressive disorder), severe (ICD-10 - [...] 150 mg daily in am Continue Aripiprazole 10 mg, - hx Passive suicidal thoughts no plan or intent.- repotred stable no thoughts no SI/HI - Plan: Encourage continued therapy sessions (every other week). Provide suicide hotline number (460). 2. Anxiety - d/c hydroxyzine - not need rx d/c Buspar 5 mg twice a day for anxiety and depression- reported not taken not need rx anxiety stable educated on all rx 3. Vitamin D Deficiency and Calcium Supplementation - Currently on calcium and vitamin D3 supplements. - Plan: Continue current supplements and monitor her vitamin D levels. 4. Short term memory loss HX CVA 2016 refer to PCP/Neurologist - reported has neurologist to see 2024 appt SLUMS = 27 09/10/24 5. Medication Refills - - Plan: Continue current medications as prescribed 6. Urine Sample - Plan: Collect UDS sample for routine testing. PRN educated on all medications, benefits, side effects [...] potential neurotoxicity and interactions with prescribed medications. 11/20/2024 MACARIO (generalized anxiety disorder) (ICD-10 - F41.1) [...] 150 mg daily in am Continue Aripiprazole 10 mg, - hx Passive suicidal thoughts no plan or intent.- repotred stable no thoughts no SI/HI - Plan: Encourage continued therapy sessions (every other week). Provide suicide hotline number (257). 2. Anxiety - d/c hydroxyzine - not need rx d/c Buspar 5 mg twice a day for anxiety and depression- reported not taken not need rx anxiety stable educated on all rx 3. Vitamin D Deficiency and Calcium Supplementation - Currently on calcium and vitamin D3 supplements. - Plan: Continue current supplements and monitor her vitamin D levels. 4. Short term memory loss HX CVA 2016 refer to PCP/Neurologist - reported has neurologist to see 2024 appt SLUMS = 27 09/10/24 5. Medication Refills - - Plan: Continue current medications as prescribed 6. Urine Sample - Plan: Collect UDS sample for routine testing. PRN educated on all medications, benefits, side effects [...] potential neurotoxicity and interactions with prescribed medications. 11/20/2024 Primary insomnia (ICD-10 - F51.01) Learning About [...] 150 mg daily in am Continue Aripiprazole 10 mg, - hx Passive suicidal thoughts no plan or intent.- repotred stable no thoughts no SI/HI - Plan: Encourage continued therapy sessions (every other week). Provide suicide hotline number (554). 2. Anxiety - d/c hydroxyzine - not need rx d/c Buspar 5 mg twice a day for anxiety and depression- reported not taken not need rx anxiety stable educated on all rx 3. Vitamin D Deficiency and Calcium Supplementation - Currently on calcium and vitamin D3 supplements. - Plan: Continue current supplements and monitor her vitamin D levels. 4. Short term memory loss HX CVA 2016 refer to PCP/Neurologist - reported has neurologist to see 2024 appt SLUMS = 27 09/10/24 5. Medication Refills - - Plan: Continue current medications as prescribed 6. Urine Sample - Plan: Collect UDS sample for routine testing. PRN educated on all medications, benefits, side effects [...] potential neurotoxicity and interactions with prescribed medications. 11/20/2024 Passive suicidal ideations (ICD-10 - R45.851) discussed [...] 150 mg daily in am Continue Aripiprazole 10 mg, - hx Passive suicidal thoughts no plan or intent.- repotred stable no thoughts no SI/HI - Plan: Encourage continued therapy sessions (every other week). Provide suicide hotline number (130). 2. Anxiety - d/c hydroxyzine - not need rx d/c Buspar 5 mg twice a day for anxiety and depression- reported not taken not need rx anxiety stable educated on all rx 3. Vitamin D Deficiency and Calcium Supplementation - Currently on calcium and vitamin D3 supplements. - Plan: Continue current supplements and monitor her vitamin D levels. 4. Short term memory loss HX CVA 2016 refer to PCP/Neurologist - reported has neurologist to see 2024 appt SLUMS = 27 09/10/24 5. Medication Refills - - Plan: Continue current medications as prescribed 6. Urine Sample - Plan: Collect UDS sample for routine testing. PRN educated on all medications, benefits, side effects [...] potential neurotoxicity and interactions with prescribed medications. 11/20/2024 Memory loss (ICD-10 - R41.3) 1. Major Depressive Disorder- continue to have depression - AIMS= 0 09/10/24 1 missing tooth hx CVA effected left side and slower on side 2016- memory - short term loss - Current medications: Prozac 60 mg daily - improved numbness with GDR discuss and educated on medications options Wellbutrin XL 150 mg daily in am Continue Aripiprazole 10 mg, - hx Passive suicidal thoughts no plan or intent.- repotred stable no thoughts no SI/HI - Plan: Encourage continued therapy sessions (every other week). Provide suicide hotline number (151). 2. Anxiety - d/c hydroxyzine - not need rx d/c Buspar 5 mg twice a day for anxiety and depression- reported not taken not need rx anxiety stable educated on all rx 3. Vitamin D Deficiency and Calcium Supplementation - Currently on calcium and vitamin D3 supplements. - Plan: Continue current supplements and monitor her vitamin D levels. 4. Short term memory loss HX CVA 2016 refer to PCP/Neurologist - reported has neurologist to see 2024 appt SLUMS = 27 09/10/24 5. Medication Refills - - Plan: Continue current medications as prescribed 6. Urine Sample - Plan: Collect UDS sample for routine testing. PRN educated on all medications, benefits, side effects [...] Name Sig Start Date Stop Date Notes ARIPiprazole 10 MG 1 tablet Oral Once a day for 30 days FLUoxetine HCl 20 MG 1 tablet Orally Onc e a day for 90 days NO PA needed busPIRone HCl 5 MG 1 tablet Orally Twic e a day for 30 days 11/20/2024 buPROPion HCl ER (XL) 150 MG 1 tablet Or ally Once a day for 30 days FLUoxetine HCl 40 MG 1 capsule Oral Once a day for 30 days Treatment Notes Assessment Notes MDD (major depressive [...] was published Next Appt Details Follow Up: 3 Months, Reason: f/u rx Provider Name:Carline Naqvi , 02/15/2025 02:00:00 PM, [address] [facility] [address], [facility] [address], [place], [address], Progress Notes * XIOMARA CHAIREZB:1965 (58 yo F)Acc No.[id number]:11/20/2024 Patient: MERLE DE SANTIAGOI Provider: BARBIE CANDELARIAHNP :1965 A ge:58 Y S ex:Female Date:11/20/2024 Phone: Address:[address] [place], [place] [id number] Pcp:Alber Roberts MD Subjective: * Chief Complaints: * 1 . f/u up Buspar. * HPI: D epression Screening: follow up f or depression, anxiety, sleep, chornic since last visit reported I been doing a lot better with depression and anxiety, I decided not need to take Buspar anxiety is managed, tolerating rx no s/e and not as much sad, down, less anxious, less restless and fidgety I am able to sit still, I am sleeping alright, appetite returned, denies A/V/C hallucinations and reported never had it, I feel like I never had yumi or hypomania, and little irritable and improved, concentration and focus pretty good, motivation and interest better I been reading, I am doing things around house and ADLS, memory ok 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 . I lost weight 40 pounds since . Noted slow walking - hx left knee surgery slow to respond to [...] for OD and I called for help [place] and I called them 2 nights in a row and had to go in, ETOH- denies smoking- denies labs drugs- denies- UDS done 09/10/24 rx hx Seroquel, Abilify, Prozac, Vistaril, Lexapro, Celexa, Zoloft, Buspar HX She has been seeing her primary [...] pressure, asthma, and type 2 diabetes. CVA 2017- short term memory loss - reported memory loss before CVA S he attends therapy sessions every other week She works part-time. AIMS= 0 1 11/11/23 SLUMS= 27 09/10/24. MACARIO-7 (2018 Edition) F eeling nervous, anxious, or on edge?Not at all, N ot being able to stop or control worrying S everal days, W orrying too much about different things N ot at all, T rouble relaxing N ot at all, B eing so restless that it is hard to sit still N ot at all, B ecoming easily annoyed or irritable?Several days, F eeling afraid as if something awful might happen S ever, T otal MACARIO-7 Score 3 , I f you checked any problems, how difficult have they made it for you to do your work, take care of things at home, or get along with other people? N ot difficult at all,?Interpretation of Total ( 0 to 4) No Anxiety. D epression screening: PHQ-9 L ittle interest or pleasure in doing things S everal days, F eeling down, depressed, or hopeless S everal , T rouble falling or staying asleep, or sleeping too much N ot at all, F eeling tired or having little energy N ot at all, P oor appetite or overeating N ot at all, F eeling bad about yourself or that you are a failure, or have let yourself or your family down S everal , T rouble concentrating on things, such as reading the newspaper or watching television N ot at all, M oving or speaking so slowly that other people could have noticed; or the opposite, being so fidgety or restless that you have been moving around a lot more than usual N ot at all, T houghts that you would be better off or of hurting yourself in some way N ot at all, T otal Score 3 , I nterpretation M inimal Depression. I ntervention D epression Screening Findings?Negative, S uicide Risk Assessment Performed . * ROS: S ee HPI reports n o shortness of breath, no chest pain, no palpitations, no known heart murmur, and no ankle swelling; reported no cough. r eports no abdominal pain, no [...] short term memory loss b ut reports improved depression, , no alcohol abuse, reported improved anxiety, no hallucinations, no suicidal thoughts, no [...] no neck pain, and slow gait- difficulty walking P erformance Met: N ormal blood pressure reading documented, follow-up not required ( G8783). * Medical History: H yperlipidemia, Hypertension, Diabetes insipidus type 2, CVA 2016. * Medications: T trevon ARIPiprazole 10 MG Tablet 1 tablet Oral Once a day , Taking FLUoxetine HCl 40 MG Capsule 1 capsule Oral Once a day , Notes to Pharmacist: change to 60 mg daily, Taking buPROPion HCl ER (XL) 150 MG Tablet Extended Release 24 Hour 1 tablet Orally Once a day , Taking hydrOXYzine HCl 50 MG Tablet [...] BY MOUTH ONCE DAILY Oral , Taking ARIPiprazole 10 MG Tablet Take 1 tablet by mouth once daily , Taking busPIRone HCl 5 MG Tablet 1 tablet Orally Twice a day , stop date 01/07/2025, Taking FLUoxetine HCl 20 MG Capsule 1 tablet Orally Once a day , Notes to Pharmacist: NO PA needed, Not-Taking Lisinopril 40 MG Tablet Oral , Medication List reviewed and reconciled with the patient * Allergies: P enicillin. Objective: * Vitals: B P:128/86mm Hg, HR:85/min, Wt:225lbs, Wt-k.06 kg, Ht: 66 in, Ht-cm: 167.64 cm, BMI:36.31Index, Body Surface Area: 2.18. * Examination: P sychiatry: Appearance: w ell-groomed, well-nourished, appears older, over weight. Abnormal body movements: n one. Affect / mood: a ppropriate, full range. Aggression: l ow. Anger control: g ood. Attention: g ood. Attitude: c ooperative. Homicidal ideation: n one. Suicidal ideation: c hronic passive improved; denies denies active SI, plan, or intent- no past attempts no [facility] hospital x 2. Memory status: r eported [...] 150 mg daily in am Continue Aripiprazole 10 mg, - hx Passive suicidal thoughts no plan or intent.- repotred stable no thoughts no SI/HI - Plan: Encourage continued therapy sessions (every other week). Provide suicide hotline number (034). 2. Anxiety - d/c hydroxyzine - not need rx d /c Buspar 5 mg twice a day for anxiety and depression- reported not taken not need rx anxiety stable educated on all rx 3. Vitamin D Deficiency and Calcium Supplementation - Currently on calcium and vitamin D3 supplements. - Plan: Continue current supplements and monitor her vitamin D levels. 4. Short term memory loss HX CVA 2016 refer to PCP/Neurologist - reported has neurologist to see 2024 appt SLUMS = 27 09/10/24 5. Medication Refills - - Plan: Continue current medications as prescribed 6. Urine Sample - Plan: Collect UDS sample for routine testing. PRN educated on all medications, benefits, side effects [...] Treatment: 2. G AD (generalized anxiety disorder) Stop busPIRone HCl Tablet, 5 MG, 1 tablet, Orally, Twice a day, 30 days, 60 Tablet. Notes: Learning About Generalized Anxiety Disorder material [...] 6127 BEHAV ASSMT W/SCORE & DOCD/STAND INSTRUMENT, G8783 NORMAL BP READING DOC F/U NOT RQR, 39989 BEHAV ASSMT W/SCORE & DOCD/STAND INSTRUMENT, G8752 MOST RECENT SYSTOLIC BP < 140MM HG, G8754 MOST RECENT DIASTOLIC BP < 90MM HG, G2211 VISIT COMPLEXITY INHERENT TO ONGOING CARE RELATED TO A PATIENT'S SINGLE, SERIOUS CONDITION OR A COMPLEX CONDITION * Follow Up: 3 Months (Reason: f/u rx) * Billing Information: * Visit Code: 71367 OFFICE OUTPATIENT VISIT 25 MINUTES DETAILED HISTORY AND EXAM/MODERATE MEDICAL DECISION MAKING. * Procedure Codes: 75882 BEHAV ASSMT W/SCORE & DOCD/STAND INSTRUMENT. G8783 NORMAL BP READING DOC F/U NOT RQR. 36961 BEHAV ASSMT W/SCORE & DOCD/STAND INSTRUMENT. G8752 MOST RECENT SYSTOLIC BP < 140MM HG. G8754 MOST RECENT DIASTOLIC BP < 90MM HG. G2211 VISIT COMPLEXITY INHERENT TO ONGOING CARE RELATED TO A PATIENT'S SINGLE, SERIOUS CONDITION OR A COMPLEX CONDITION. * UNTING FILE CLERK Sign off status: Completed true * Provider: GREG CANDELARIA Date: 11/20/2024 Generated for Dayna gonzalez/Genet/Siddharthransmitting on: 0 11/28/2024 10:17 AM ACCOUNTING FILE CLERK History and Physical Notes * HPI (History of Present Illness) Category Sub-Category Detail Notes Category Not es Depression screening PHQ-9 Little inte rest or pleasure in doing things: Several days Feeling down, depressed, or hopeless: Se veral days Trouble falling or staying asleep, or sl eeping too much: Not at all Feeling tired or having little energy: N ot at all Poor appetite or overeating: Not at all Feeling bad about yourself o r that you are a failure, or have let yourself or your family down: Several days Trouble concentrating on thi ngs, such as reading the newspaper or watching television: Not at all Moving or speaking so slowly that other people could have noticed; or the opposite, being so fidgety or restless that you have been moving around a lot more than usual: Not at all Thoughts that you would be b rosemary off or of hurting yourself in some way: Not at all Total Score: 3 Interpretation: Minimal Depression Intervention Depression Screening Findings: N egative Suicide Risk Assessment Performed: ____ Depression Screening MACARIO-7 (2018 Edition) Feelin g nervous, anxious, or on edge: Not at all Not being able to stop or control worryi ng: Several days Worrying too much about different things : Not at all Trouble relaxing: Not at all Being so restless that it is hard to sit still: Not at all Becoming easily annoyed or irritable: Se veral days Feeling afraid as if something awful mariely ht happen: Several days Total MACARIO-7 Score: 3 If you checked any problems, how difficult have they made it for you to do your work, take care of things at home, or get along with other people?: Not difficult at all Interpretation of Total: (0 to 4) No Anx iety Examination Category Sub-Category Detail Notes Category Not [...] Suicidal ideation: chronic passive impr erica; denies denies active SI, plan, or intent- no past attempts no [facility] Homicidal ideation: none Intellectual functioning: average Impulse control: good Memory status: reported short term memory issues for a whole - CVA 2016 Delusions: no Hallucinations: no Comprehension - Intellectual function: a verage
--- OUTSIDE RECORDS SUMMARY | 2024-11-28 10:18 | XMS_ITS | Patient Health Record ---
Author Organization [facility] Address [address] [facility] [address] [place] [address] Care Team Providers Care Maintenance Dispatcher Name Role Phone Alber Roberts MD Primary Care Provider Carline Rust Unavailable [phone] Kishore Macias Unavailable [phone] Allergies Allergen (clinical drug ingredient) Drug/Non Drug Allergy documented on EMR Reaction Allergy Type Onset Date Status Penicillin Unknown Drug Allergy Active Reason For Referral No Information Medications Medication SIG (Take, Route, Frequency, Duration) Notes Start Date End Date Status ARIPiprazole 10 MG 1 tablet Oral Once a day for 30 days Active Vitamin D3 Active Lisinopril 40 MG Oral for 90 Days Not-Taking FLUoxetine HCl 20 MG 1 tablet Orally Once a day for 90 days NO PA needed Active Montelukast Sodium 10 MG Oral for 90 Days Active Rosuvastatin Calcium 40 MG TAKE 1 TABLET BY MOUTH ONCE DAILY Oral for 90 Days Active buPROPion HCl ER (XL) 150 MG 1 tablet Orally Once a day for 30 days Active metFORMIN HCl 500 MG 1 tablet with a meal Oral twice a day for 90 days Active FLUoxetine HCl 40 MG 1 capsule Oral Once a day for 30 days Active Calcium Active ARIPiprazole 10 MG Take 1 tablet by mouth once daily for 30 Active NIFEdipine ER Osmotic Release 60 MG TAKE 1 TABLET BY MOUTH ONCE DAILY Oral for 90 Days Active Omeprazole 40 MG TAKE 1 CAPSULE BY MOUTH ONCE DAILY BEFORE A MEAL Oral for 90 Days Active Aspirin 325 MG 1 tablet Orally [...] 0 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 No Tobacco Control (Standard) Question Answer Notes Tobacco use: Nonsmoker Problems Problem Type SNOMED Code ICD Code Onset Dates Problem Status W/U Status Risk Notes Problem Primary insomnia (6560571) Primary insomnia (F51.01) Active confirmed Problem Generalized anxiety disorder (98665587) MACARIO (generalized anxiety disorder) (F41.1) Active confirmed Problem 03016567 Memory loss (R41.3) Active confirmed Problem 263882346 MDD (major depressive disorder), severe (F32.2) Active confirmed Problem Feeling suicidal (986291002) Passive suicidal ideations (R45.851) Active confirmed Vital Signs Heart Rate 85 /min 11/20/2024 Respiratory Rate 15 /min 09/10/2024 Height-cm 167.64 cm 11/20/2024 Blood pressure diastolic 86 mm Hg 11/20/2024 Weight-kg 102.06 kg 11/20/2024 Height 66 in 11/20/2024 Blood pressure systolic 128 mm Hg 11/20/2024 Weight 225 lbs 11/20/2024 BMI 36.31 kg/m2 11/20/2024 Encounters Encounter Location Date Provider Diagnosis [facility] [address] [address] 08/13/2024 Kishore Clubb MDD (major depressive disorder), severe F32.2 ; MACARIO (generalized anxiety disorder) F41.1 ; Primary insomnia F51.01 and Passive suicidal ideations R45.851 [employer] [address] [address] 09/10/2024 Carline Naqvi MDD (major depressive disorder), severe F32.2 ; MACARIO (generalized anxiety disorder) F41.1 ; Primary insomnia F51.01 ; Passive suicidal ideations R45.851 and Memory loss R41.3 [employer] [address] [address] 10/09/2024 Carline Thersuzi MDD (major depressive disorder), severe F32.2 ; MACARIO (generalized anxiety disorder) F41.1 ; Primary insomnia F51.01 ; Passive suicidal ideations R45.851 and Memory loss R41.3 [employer] [place] [facility] [address] [place] [address] 11/20/2024 Carline Naqvi MDD (major depressive disorder), severe F32.2 ; MACARIO (generalized anxiety disorder) F41.1 ; Primary insomnia F51.01 ; Passive suicidal ideations R45.851 and Memory loss R41.3 Assessments Encounter Date Diagnosis (ICD Code) Assessment Notes Treatment Notes Treatment Clinical Notes Section Notes 08/13/2024 MACARIO (generalized anxiety disorder) (ICD-10 - F41.1) 1. Major Depressive Disorder - Depression and anxiety rated 5-6 out of 10. - Current medications: Prozac 80mg daily, aripiprazole 10mg, quetiapine 50mg at night, hydroxyzine 25mg as needed. - Passive suicidal thoughts once a week, no plan or intent. - Plan: a. Discuss possibility of adding Wellbutrin or switching to duloxetine in future. b. Refer to long-term psychiatrist (Carline Khan). c. Encourage continued therapy sessions (every other week). d. Provide suicide hotline number ([phone]). 2. Anxiety - She reports hydroxyzine not noticeably effective. - Plan: a. Increase hydroxyzine to 50mg twice daily as needed. b. Monitor for side effects (dry mouth, constipation, fatigue). c. Reassess effectiveness at next appointment. 3. Vitamin D Deficiency and Calcium Supplementation - Currently on calcium and vitamin D3 supplements. - Plan: Continue current supplements and monitor her vitamin D levels. 4. Medication Refills - No need for refills on other medications reported. - Plan: Continue current medications as prescribed and reassess at her next appointment. 5. Urine Sample - Plan: Collect urine sample after appointment for routine testing. 08/13/2024 MDD (major depressive disorder), severe (ICD-10 - F32.2) 1. Major Depressive Disorder - Depression and anxiety rated 5-6 out of 10. - Current medications: Prozac 80mg daily, aripiprazole 10mg, quetiapine 50mg at night, hydroxyzine 25mg as needed. - Passive suicidal thoughts once a week, no plan or intent. - Plan: a. Discuss possibility of adding Wellbutrin or switching to duloxetine in future. b. Refer to long-term psychiatrist (Carline Khan). c. Encourage continued therapy sessions (every other week). d. Provide suicide hotline number (969). 2. Anxiety - She reports hydroxyzine not noticeably effective. - Plan: a. Increase hydroxyzine to 50mg twice daily as needed. b. Monitor for side effects (dry mouth, constipation, fatigue). c. Reassess effectiveness at next appointment. 3. Vitamin D Deficiency and Calcium Supplementation - Currently on calcium and vitamin D3 supplements. - Plan: Continue current supplements and monitor her vitamin D levels. 4. Medication Refills - No need for refills on other medications reported. - Plan: Continue current medications as prescribed and reassess at her next appointment. 5. Urine Sample - Plan: Collect urine sample after appointment for routine testing. 09/10/2024 MACARIO (generalized anxiety disorder) (ICD-10 - [...] other week). d. Provide suicide hotline number (542). 2. Anxiety - She reports hydroxyzine not [...] neurotoxicity and interactions with prescribed medications. 09/10/2024 MDD (major depressive disorder), severe (ICD-10 [...] other week). d. Provide suicide hotline number (190). 2. Anxiety - She reports hydroxyzine not [...] (every other week). Provide suicide hotline number (344). 2. Anxiety - She reports hydroxyzine not [...] neurotoxicity and interactions with prescribed medications. 10/09/2024 MDD (major depressive disorder), severe (ICD-10 [...] (every other week). Provide suicide hotline number (251). 2. Anxiety - She reports hydroxyzine not [...] neurotoxicity and interactions with prescribed medications. 11/20/2024 MDD (major depressive disorder), severe (ICD-10 [...] (every other week). Provide suicide hotline number (420). 2. Anxiety - d/c hydroxyzine - not [...] (every other week). Provide suicide hotline number (603). 2. Anxiety - d/c hydroxyzine - not [...] potential neurotoxicity and interactions with prescribed medications. 08/13/2024 Primary insomnia (ICD-10 - F51.01) 1. Major Depressive Disorder - Depression and anxiety rated 5-6 out of 10. - Current medications: Prozac 80mg daily, aripiprazole 10mg, quetiapine 50mg at night, hydroxyzine 25mg as needed. - Passive suicidal thoughts once a week, no plan or intent. - Plan: a. Discuss possibility of adding Wellbutrin or switching to duloxetine in future. b. Refer to long-term psychiatrist (Carline Khan). c. Encourage continued therapy sessions (every other week). d. Provide suicide hotline number (725). 2. Anxiety - She reports hydroxyzine not noticeably effective. - Plan: a. Increase hydroxyzine to 50mg twice daily as needed. b. Monitor for side effects (dry mouth, constipation, fatigue). c. Reassess effectiveness at next appointment. 3. Vitamin D Deficiency and Calcium Supplementation - Currently on calcium and vitamin D3 supplements. - Plan: Continue current supplements and monitor her vitamin D levels. 4. Medication Refills - No need for refills on other medications reported. - Plan: Continue current medications as prescribed and reassess at her next appointment. 5. Urine Sample - Plan: Collect urine sample after appointment for routine testing. 09/10/2024 Primary insomnia (ICD-10 - F51.01) Learning [...] other week). d. Provide suicide hotline number (525). 2. Anxiety - She reports hydroxyzine not [...] (every other week). Provide suicide hotline number (646). 2. Anxiety - She reports hydroxyzine not [...] potential neurotoxicity and interactions with prescribed medications. 08/13/2024 Passive suicidal ideations (ICD-10 - R45.851) discussed suicide safety plan and crisis hotline number and when to seek emergency services. 1. Major Depressive Disorder - Depression and anxiety rated 5-6 out of 10. - Current medications: Prozac 80mg daily, aripiprazole 10mg, quetiapine 50mg at night, hydroxyzine 25mg as needed. - Passive suicidal thoughts once a week, no plan or intent. - Plan: a. Discuss possibility of adding Wellbutrin or switching to duloxetine in future. b. Refer to long-term psychiatrist (Carline Khan). c. Encourage continued therapy sessions (every other week). d. Provide suicide hotline number (432). 2. Anxiety - She reports hydroxyzine not noticeably effective. - Plan: a. Increase hydroxyzine to 50mg twice daily as needed. b. Monitor for side effects (dry mouth, constipation, fatigue). c. Reassess effectiveness at next appointment. 3. Vitamin D Deficiency and Calcium Supplementation - Currently on calcium and vitamin D3 supplements. - Plan: Continue current supplements and monitor her vitamin D levels. 4. Medication Refills - No need for refills on other medications reported. - Plan: Continue current medications as prescribed and reassess at her next appointment. 5. Urine Sample - Plan: Collect urine sample after appointment for routine testing. 09/10/2024 Passive suicidal ideations (ICD-10 - R45.851) [...] other week). d. Provide suicide hotline number (218). 2. Anxiety - She reports hydroxyzine not [...] (every other week). Provide suicide hotline number (275). 2. Anxiety - She reports hydroxyzine not [...] (every other week). Provide suicide hotline number (744). 2. Anxiety - d/c hydroxyzine - not [...] (every other week). Provide suicide hotline number (518). 2. Anxiety - She reports hydroxyzine not [...] (every other week). Provide suicide hotline number (467). 2. Anxiety - d/c hydroxyzine - not [...] other week). d. Provide suicide hotline number (633). 2. Anxiety - She reports hydroxyzine not [...] (every other week). Provide suicide hotline number (953). 2. Anxiety - d/c hydroxyzine - not [...] potential neurotoxicity and interactions with prescribed medications. 08/13/2024 Other Learning About Depression Screening material was printed Assessment and plan reviewed with patient Call for problems with medication, side effects or need for dosage change Compliance issues reviewed Discussed the risks/benefits of this medication Discussed medication side effects Return if symptoms worsen Treatment options reviewed. discussed that it can take weeks to see full therapeutic effects of psychotropic medications. discussed when to seek emergency services. discussed crisis prevention hotline 981. 1. Major Depressive Disorder - Depression and anxiety rated 5-6 out of 10. - Current medications: Prozac 80mg daily, aripiprazole 10mg, quetiapine 50mg at night, hydroxyzine 25mg as needed. - Passive suicidal thoughts once a week, no plan or intent. - Plan: a. Discuss possibility of adding Wellbutrin or switching to duloxetine in future. b. Refer to long-term psychiatrist (Carline Khan). c. Encourage continued therapy sessions (every other week). d. Provide suicide hotline number (351). 2. Anxiety - She reports hydroxyzine not noticeably effective. - Plan: a. Increase hydroxyzine to 50mg twice daily as needed. b. Monitor for side effects (dry mouth, constipation, fatigue). c. Reassess effectiveness at next appointment. 3. Vitamin D Deficiency and Calcium Supplementation - Currently on calcium and vitamin D3 supplements. - Plan: Continue current supplements and monitor her vitamin D levels. 4. Medication Refills - No need for refills on other medications reported. - Plan: Continue current medications as prescribed and reassess at her next appointment. 5. Urine Sample - Plan: Collect urine sample after appointment for routine testing. 09/10/2024 Other Aripiprazole Oral Tablet 10 mg [...] other week). d. Provide suicide hotline number (178). 2. Anxiety - She reports hydroxyzine not [...] interactions with prescribed medications. Plan Of Treatment Pending Test Test Name Order Date UDT 08/13/2024 UDT 09/10/2024 Next Appt Details Provider Name:Carline Naqvi , 02/15/2025 02:00:00 PM, [address] [facility] [address], [facility] [address], [place], [address], Insurance Providers Payer Name Payer Address Payer Phone Subscriber Number Group Number Insured Name Patient Relationship to Insured Coverage Start Date Coverage End Date [facility] [address] [place] [address] [id number] OSMAN CHAIREZ Self - patient is the insured Medical (General) History Medical History History ICD Code hyperlipidemia hypertension diabetes insipidus type 2 CVA 2016 Surgical History Surgery Date(Month/Year) Hand surgery Hospitalization History Reason Date(Month/Year) Patient was last hospitalized in May of 2024.
--- NOTE | 2024-11-28 11:30 | NEURO_ITS ---
Impression: # Complains of numbness of lower extremities. ? # Borderline neuropathy of lower extremities. ? # Abnormal Needle/EMG exam more so distally. ? # Clinical correlation recommended; Problem could be related to small fiber neuropathy. Nerve Conduction Studies Anti Sensory Summary Table ?Stim Site NR Peak (ms) P-T Amp (?V) Site1 Site2 Delta-P (ms) Dist (cm) Timmy (m/s) Left Sup Fibular Anti Sensory (Ant Lat Mall) 14 cm ? 3.4 14.1 14 cm Ant Lat Mall 3.4 16.0 47 Right Sup Fibular Anti Sensory (Ant Lat Mall) 14 cm ? 3.3 6.3 14 cm Ant Lat Mall 3.3 16.0 48 Left Sural Anti Sensory (Lat Mall) Calf ? 3.5 5.5 Calf Lat Mall 3.5 16.0 46 Right Sural Anti Sensory (Lat Mall) Calf ? 3.6 6.9 Calf Lat Mall 3.6 16.0 44 Motor Summary Table ?Stim Site NR Onset (ms) O-P Amp (mV) Site1 Site2 Delta-0 (ms) Dist (cm) Timmy (m/s) Left Peroneal Motor (Vastus Med) Ankle ? 4.2 1.2 Popit Ankle 8.6 40.0 47 Popit ? 12.8 1.3 Right Peroneal Motor (Vastus Med) Ankle ? 4.0 1.1 Popit Ankle 8.9 41.0 46 Popit ? 12.9 1.5 Left Tibial Motor (Abd De La Cruz Brev) Ankle ? 4.7 3.3 Knee Ankle 9.2 42.0 46 Knee ? 13.9 2.3 Right Tibial Motor (Abd De La Cruz Brev) Ankle ? 4.5 2.8 Knee Ankle 10.0 43.0 43 Knee ? 14.5 1.9 F Wave Studies ?NR F-Lat (ms) L-R F-Lat (ms) Left Peroneal (Mrkrs) (EDB) ? 58.36 1.29 Right Peroneal (Mrkrs) (EDB) ? 57.08 1.29 Left Tibial (Mrkrs) (Abd Hallucis) ? 57.72 1.03 Right Tibial (Mrkrs) (Abd Hallucis) ? 56.69 1.03 EMG ?Side Muscle Nerve Root Ins Act Fibs Amp Dur Recrt Comment Right AntTibialis Dp Br Fibular L4-5 Nml Nml Nml Nml Nml Right Gastroc Tibial S1-2 Nml Nml Nml Nml Nml Right Fibularis Long Sup Br Fibular L5-S1 Nml Nml Nml Nml Nml Right Flex Dig Long Tibial L5-S2 Nml Nml Decr >12ms +1 Right Ext Dig Brev Dp Br Fibular L5, S1 Nml Nml Decr >12ms +1 Right QuadratusFem QuadFemoris L4-5, S1 Nml Nml Nml Nml Nml Left AntTibialis Dp Br Fibular L4-5 Nml Nml Nml Nml Nml Left Gastroc Tibial S1-2 Nml Nml Nml Nml Nml Left Fibularis Long Sup Br Fibular L5-S1 Nml Nml Nml Nml Nml Left Flex Dig Long Tibial L5-S2 Nml Nml Decr >12ms +1 Left Ext Dig Brev Dp Br Fibular L5, S1 Nml Nml Decr >12ms +1 Left QuadratusFem QuadFemoris L4-5, S1 Nml Nml Nml Nml Nml MTDD
== END 2024-11-28 10:06 | disposition home or self-care (01) ==
LOC: ANHNEURO 10:06
PROVIDERS: PCP Emergency Medicine; Visit Provider Psychiatry & Neurology Neurology
DX: E11.9 Type 2 diabetes mellitus without complications (principal); G62.9 Polyneuropathy, unspecified; R94.131 Abnormal electromyogram [EMG]
CPT/HCPCS: 95886; 95910

== ENCOUNTER 2025-01-01 14:28 | Outpatient (CLI) | payer BC, SELFPAY ==
--- NOTE | ~2025-01-01 | MMUS_ITS ---
EXAMINATION: MM diagnostic rah BI w cipriano, US breast LT limited HISTORY: Yearly screening and diagnostic followup Left breast asymmetry TECHNIQUE: Craniocaudal and mediolateral oblique 3-D tomosynthesis images were obtained and synthetic 2-D images were generated. CAD analysis was submitted and interpreted. High resolution left breast ultrasound was performed. COMPARISON: 01/20/2024 and 11/15/2023 BREAST PARENCHYMAL COMPOSITION: Not Dense. There are scattered areas of fibroglandular density. FINDINGS: MAMMOGRAPHIC FINDINGS: Punctate and bulky calcifications are detected bilaterally, stable and benign in appearance. Stable parenchymal pattern without suspicious microcalcifications, architectural distortion, discrete masses or significant asymmetry. ULTRASOUND: Limited sonographic evaluation of the left breast was performed assessing grayscale appearance and co maryjo Doppler flow. Redemonstration of the well-circumscribed focus of mixed echogenicity at the 11:00 position of the le ft breast approximately 3 cm from the nipple measuring 6.3 x 5.9 x 2.7 mm, unchanged from prior. At the 11:00 position of the left breast approximately 3 cm from the nipple is a well-circumscribed a nechoic avascular structure with increased through transmission consistent with a simple cyst measuri ng 2.6 x 3.3 x 2.5 mm, for which no further follow-up is needed. IMPRESSION: No mammographic/tomographic or sonographic evidence to suggest the presence of malignancy. Resumption of yearly mammography is recommended. BI-RADS Category 2: Benign finding(s). Reviewed, dictated and finalized at location A. IMPRESSION: No mammographic/tomographic or sonographic evidence to suggest the presence of malignancy. Resumption of yearly mammography is recommended. BI-RADS Category 2: Benign finding(s).
--- OUTSIDE RECORDS SUMMARY | 2025-01-01 16:58 | XMS_ITS ---
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 No Tobacco Control (Standard) Question Answer Notes Tobacco use: Nonsmoker Problems Problem Type SNOMED Code ICD Code Onset Dates Problem Status W/U Status Risk Notes Problem Feeling suicidal (061368897) Passive suicidal ideations (R45.851) Active confirmed Problem 41369405 Memory loss (R41.3) Active confirmed Vital Signs Respiratory Rate 15 /min 09/10/2024 Height 66 in 09/10/2024 Weight 222.6 lbs 09/10/2024 BMI 35.92 kg/m2 09/10/2024 Height-cm 167.64 cm 09/10/2024 Weight-kg 100.97 kg 09/10/2024 Encounters Encounter Location Date Provider Diagnosis [facility] [address] [facility] [address] [place] [address] 09/10/2024 Carline Naqvi MDD (major depressive disorder), [...] other week). d. Provide suicide hotline number (318). 2. Anxiety - She reports hydroxyzine not [...] other week). d. Provide suicide hotline number (912). 2. Anxiety - She reports hydroxyzine not [...] other week). d. Provide suicide hotline number (484). 2. Anxiety - [...] other week). d. Provide suicide hotline number (670). 2. Anxiety - She reports hydroxyzine not [...] other week). d. Provide suicide hotline number (299). 2. Anxiety - She reports hydroxyzine not [...] other week). d. Provide suicide hotline number (892). 2. Anxiety - She reports hydroxyzine not [...] Provider Name:Carline Naqvi , 02/15/2025 02:00:00 PM, [address], [address], [place], [address], Progress Notes * MERLE CHAIREZIDOB:1965 (58 yo F)Acc No.[id number]:09/10/2024 Patient: OSMAN DE SANTIAGO Provider: GREG CANDELARIA :1965 A ge:58 Y S ex:Female Date:09/10/2024 Phone: Address:[address] [place] [address] [place], [facility] Pcp:Alber Roberts MD Subjective: * Chief Complaints: [...] trouble movtivating self to shower and take chcf, and ADL's and memory short term not as good as custodial memory and been going on few years [...] for OD and I called for help [place] and I called them 2 nights in [...] Lifeline Y es, T ext HOME to [id number] Y ashleigh N [facility], Suicide & Crisis Hotline 5-461-314-HOPE(7001) Y ashleigh, N [facility] Suicide Prevention Lifeline 7953-889-JRZA (1515) Y es, S tep 5: Making the [...] 1 brother, L evel of education: [employer]/Masters/PhD PHD [place]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 N o, A wi household pets? N o. * Medications: T [...] ntact. N eurology: Cognition Assessment Tools Used T otal score SLUMS 27. Assessment: * Assessment: 1. M DD (major [...] other week). d. Provide suicide hotline number (636). 2. Anxiety - She reports hydroxyzine not [...] 6127 BEHAV ASSMT W/SCORE & DOCD/STAND INSTRUMENT, 16009 DRUG TST PRSMV READ INSTRMNT ASSTD DIR OPT OBS, 68587 BEHAV ASSMT W/SCORE & DOCD/STAND INSTRUMENT, G2211 VISIT COMPLEXITY INHERENT TO ONGOING CARE RELATED TO A PATIENT'S SINGLE, SERIOUS CONDITION OR A COMPLEX CONDITION, 73103 PSYCL/NRPSYC TST AUTO RESULT * Follow Up: 3 Weeks (Reason: f/u rx Prozac and Wellbutrin) * Billing Information: * Visit Code: 62387 OFFICE OUTPATIENT VISIT 25 MINUTES DETAILED HISTORY AND EXAM/MODERATE MEDICAL DECISION MAKING. * Procedure Codes: 95503 BEHAV ASSMT W/SCORE & DOCD/STAND INSTRUMENT. 58364 DRUG TST PRSMV READ INSTRMNT ASSTD DIR OPT OBS. 22391 BEHAV ASSMT W/SCORE & DOCD/STAND INSTRUMENT. G2211 VISIT COMPLEXITY INHERENT TO ONGOING CARE RELATED TO A PATIENT'S SINGLE, SERIOUS CONDITION OR A COMPLEX CONDITION. 20039 PSYCL/NRPSYC TST AUTO RESULT. * PROGRAM DIRECTOR Sign off status: Completed true * Provider: PARAMJIT CANDELARIAP Date: 1 11/11/2023 Generated for Dayna gonzalez/[employer]/eTransmitting on: 0 01/01/2025 04:58 PM CDT History and Physical Notes * HPI (History [...] Poor appetite or overeating: More than h naman the days Feeling bad about yourself o [...] Screening Findings: P ositve Follow-Up for Depression: [facility] treatment assessment, Patient follow-up to return when [...] Interpretation of Total: (15 and over) S danie Psychotherapy Information Psychotherapy History Currently in therapy: [...] Agencies to Con tact for Help: Yes 367 Suicide and Crisis Lifeline: Yes Text HOME to 610607: Yes National [employer] Network, Suicide & Crisis Hotline 1-312-866-HOPE(0347): Yes National Suicide Prevention Lifeline 6512-337-NPZT (0364): Yes Step 5: Making the Environment Safe: [...]
--- OUTSIDE RECORDS SUMMARY | 2025-01-01 16:58 | XMS_ITS | Continuity of Care Document ---
Author Organization [facility] Address [address] [facility] [place] [address] Phone Care Team Providers Care Carpenter Form Name Role Phone Alber Roberts MD Unavailable Unavailable Allergies, Adverse Reactions, Alerts Substance Reaction Status Criticality Penicillins Active No Information Medications Medication Instructions Dosage Effective Dates (start - stop) Status Comments Singulair 10 mg tablet take 1 tablet by oral route every day in the evening 10 MG - Active metformin 500 mg tablet take 1 tablet by oral route 2 times every day with morning and evening meals 500 MG - Active nifedipine ER 60 mg tablet,extended release 24 hr take 1 tablet by oral route every day 60 MG - Active Wellbutrin XL 150 mg 24 hr tablet, extended release take 1 tablet by oral route every morning 150 MG - Active buspirone 10 mg tablet take 1 tablet by oral route 2 times every day 10 MG - Active omeprazole 40 mg capsule,delayed release take 1 capsule by oral route every day before a meal 40 MG - Active rosuvastatin 40 mg tablet take 1 tablet by oral route every day 40 MG - Active Abilify 10 mg tablet take 1 tablet by or al route every day 10 MG - Active Prozac 40 mg capsule take 2 capsule by o ral route every day in the morning 80 MG - Active Procedures Procedure Date PREV VISIT, EST, AGE 40-64 OFFICE/OUTPATIENT VISIT, EST OFFICE/OUTPATIENT VISIT, EST OFFICE/OUTPATIENT VISIT, EST OFFICE/OUTPATIENT VISIT, EST OFFICE/OUTPATIENT VISIT, EST OFFICE/OUTPATIENT VISIT, EST OFFICE/OUTPATIENT VISIT, EST OFFICE/OUTPATIENT VISIT, EST OFFICE/OUTPATIENT VISIT, EST OFFICE/OUTPATIENT VISIT, EST OFFICE/OUTPATIENT VISIT, EST PREV VISIT, EST, AGE 40-64 OFFICE/OUTPATIENT VISIT, EST PREV VISIT, NEW, AGE 40-64 OFFICE/OUTPATIENT VISIT, NEW Advance Directives Directive Yes / No Effective Date File Name No Information Encounters Encounter Description Practice Location Reason(s) For Visit Diagnoses Date Provider Providers Copied on Encounter PREV VISIT, EST, AGE 40-64 [facility], [address] [place], [id number], tel:[phone] [facility] physical (chief complaint) Encounter for general adult medical exam w abnormal findingsAcute renal failureLump in the left breastAnemiaGeneral ized Anxiety DisorderGERD w/o esophagitisAllergic rhinitis due to pollenType 2 diabetes mellitus without complicationsMixed hyperlipidemiaEssen tial (primary) hypertension Armando Campo. [address] [place], [address] , [place]. tel:[phone] OFFICE/OUTPA TIENT VISIT, EST [facility], [address], [address], [place] tel:[phone] [facility] breast1 (chief complaint) knee pain1 (chief complaint) skin (chief complaint) ARF (chief complaint) Lump in the left breastPain in left kneeIdiopathic progressive neuropathyHeadacheA cute renal failure 4 Armando Campo. [address] [place], [address] , [place]. tel:[phone] OFFICE/OUTPA TIENT VISIT, [facility], [address], [address], [place] tel:[phone] [facility] hospital1 (chief complaint) Acute renal failurePain in left kneeAnemiaAbnormali ties of gait 4 Armando Campo. [address], [place], [place], [address] , [place]. tel:[phone] OFFICE/OUTPA TIENT VISIT, [facility], [address], [place], [place], [address], [place] tel:[phone] [facility] anxiety1 (chief complaint) HLP (chief complaint) GERD1 (chief complaint) Mixed hyperlipidemiaGERD w/o esophagitisGenerali zed Anxiety DisorderChronic kidney disease, stage 3aLump in the left breast, upper inner quadrant 4 Armando Campo. [address], [address], [place], [place], [address] , [place]. tel:[phone] OFFICE/OUTPA TIENT VISIT, [facility], [address], [place], [place], [address], [place] tel:[phone] [facility] breast1 (chief complaint) HLP (chief complaint) syncope1 (chief complaint) renal disease1 (chief complaint) anxiety1 (chief complaint) Generalized Anxiety DisorderLump in the left breast, upper inner quadrantMixed hyperlipidemiaChron ic kidney disease, stage 3aSyncope and collapse 4 Armando Campo. [address], [place], [place], [address] , [place]. tel:[phone] OFFICE/OUTPA TIENT VISIT, [facility], [address], [place], [place], [address], [place] tel:[phone] [facility] osteopenia 1 (chief complaint) anxiety1 (chief complaint) mammo (chief complaint) Other specified disorder of bone densityGeneralized Anxiety Disorder Dec- 4 Armando Campo. [address], [place], [place], [address] , [place]. tel:[phone] OFFICE/OUTPA TIENT VISIT, [facility], [address], [place], [place], [address], [place] tel:[phone] [facility] mammo (chief complaint) Lump in the left breast, upper inner quadrant 4 Roberts Alber. [address], [place], [place], [address] , [place]. tel:[phone] OFFICE/OUTPA TIENT VISIT, [facility], [address], [place], [place], [address], [place] tel:[phone] [facility] HLP (chief complaint) DM (chief complaint) HTN (chief complaint) renal1 (chief complaint) Mixed hyperlipidemiaType 2 diabetes mellitus without complicationsEssent ial (primary) hypertensionChronic kidney disease, stage 3a 4 Roberts Alber. [address], [place], [place], [address] , [place]. [phone] OFFICE/OUTPA TIENT VISIT, [facility], [address], [place], [place], [address], [place] tel:[phone] [facility] allergy1 (chief complaint) GERD1 (chief complaint) HLP (chief complaint) renal (chief complaint) Allergic rhinitis due to pollenGERD w/o esophagitisMixed hyperlipidemiaChron ic kidney disease, stage 3a 4 Roberts Alber. [address], [place], [place], [address] , [place]. tel:[phone] OFFICE/OUTPA TIENT VISIT, [facility], [address], [place], [place], [address], [place] tel:[phone] [facility] HLP (chief complaint) HTN (chief complaint) DM (chief complaint) CVA1 (chief complaint) Mixed hyperlipidemiaEssen tial (primary) hypertensionType 2 diabetes mellitus without complicationsStroke 3 Roberts Alber. [address], [place], [place], [address] , [place]. tel:[phone] OFFICE/OUTPA TIENT VISIT, [facility], [address], [place], [place], [address], tel:[phone] [facility] allergy1 (chief complaint) GERD1 (chief complaint) renal disease1 (chief complaint) Allergic rhinitis due to pollenChronic kidney disease, stage 3aGERD w/o esophagitis 3 Armando Rodriguez [address], [place], [place], [address] , [place]. tel:[phone] PREV VISIT, EST, AGE 40-64 [facility], [address], [place], [place], [address], [place] tel:[phone] [facility] HLP (chief complaint) folate1 (chief complaint) DM (chief complaint) renal (chief complaint) loop1 (chief complaint) Encounter for general adult medical exam w abnormal findingsMixed hyperlipidemiaType 2 diabetes mellitus without complicationsEssent ial (primary) hypertensionGERD w/o esophagitisGenerali zed Anxiety DisorderFolate deficiencyRenal disease 3 Armando Rodriguez [address], [place], [place], [address] , [place]. tel:[phone] PREV VISIT, NEW, AGE 40-64 [facility], [address], [place], [place], [address], [place] tel:[phone] [facility] physical (chief complaint) Encounter for general adult medical exam w abnormal findingsEssential (primary) hypertensionMixed hyperlipidemiaGener alized Anxiety DisorderAllergic rhinitis due to pollenGERD w/o esophagitisStrokeTy pe 2 diabetes mellitus without complications 3 Armando Rodriguez [address], [address], [place], [place], [address] , [place]. [phone] Family History Family Member Type Diagnosis Age At Onset Mother Problem Stroke Brother Problem Coronary artery disease 55 Father Problem 86 parkinson. heart dis ease Sister Problem breast CA 60 Payers Payer name Insurance type Covered green party ID Authoriza tion(s) [facility] [id number] Social History Type Description Quantity Date Captured Comments Alcohol Use Details No Caffeine Use Details Unknown Tobacco Use Status Current non-smoker Smoking Status Never smoker Sex Female Vital Signs Date / Time: Height Weight BMI Pulse Rate Blood Pressure Temperature Respiratory Rate Body Surface Area Head Circumference BMI percentile Pulse Ox Inhaled Ox 3:33 PM 66.00 in 225.00 lbs 36.3 2 kg/m eter (2) 82 /min 130/86 mm[Hg] 97.2 F 16 /min Chief Complaint And Reason For Visit From encounter dated '11/13/2024 15:27'. physical (chief complaint). Description: Pt needs annual physical Pt has chronic anxiety and depression Pt sees psychiatrist Pt is on Wellbutrin and prozac and buspar and abilify and doing ok Pt is off vistaril and seroquel. Pt denies any suicidal or homicidal thought Pt denies any crying spells Pthas DM pt is on metformin and her glucose is around 100 Pt has allergy and asthma Pt takes singulair and doing ok Pt has HTN She is on nifedipine. Pt has chronic stage III renal disease. Pt is seeingnephrology and she is off lisinopril. Pt has normal UO Pt denies any new complaints Plan Of Treatment Date Type Action Status Referral Ordered: MAMMOGRAM, BOTH BREASTS ordered Referral Ordered: Physical Therapy (related to Abnormalities of gait) ordered Referral Ordered: MRI JNT OF LWR EXTRE W/O DYE Left knee ordered Referral Referred To: Physical Therapy Ordered: Referrals: Physical Therapy. Evaluate and treat ordered Referral Ordered: MAMMOGRAM, ONE BREAST ordered Referral Ordered: Cardiology (related to Encounter for general adult medical exam w abnormal findings) ordered Referral Ordered: Nephrology (related to Renal disease) ordered Referral Ordered: Referrals: Nephrology. Evaluate and treat ordered Referral Ordered: Referrals: Cardiology. Evaluate and treat ordered Referral Ordered: COLONOSCOPY AND BIOPSY ordered Referral Ordered: DXA BONE DENSITY, AXIAL ordered Referral Ordered: MAMMOGRAM, SCREENING ordered Appointment Lammert, Hannah BOOKED History Of Present Illness Encounter Date Complaint History Of Christopher nt Illness physical Pt needs annual physical Pt has chronic anxiety and depression Pt sees psychiatrist Pt is on Wellbutrin and prozac and buspar and abilify and doing ok Pt is off vistaril and seroquel. Pt denies any suicidal or homicidal thought Pt denies any crying spells Pt has DM pt is on metformin and her glucose is around 100 Pt has allergy and asthma Pt takes singulair and doing ok Pt has HTN She is on nifedipine. Pt has chronic stage III renal disease. Pt is seeing nephrology and she is off lisinopril. Pt has normal UO Pt denies any new complaints skin Pt tripped and f sahara on 07/11/24 and she hit her face on ground and she suffered laceration right eyebrow area. Pt has negative CT of brain and facial bone .Pt underwent suture x 4 right eyebrow area and she needs suture removed. Pt denies any headache knee pain1 Pt c/o left knee pain Pt has some low back pain Pt saw neurology and she had benign MRI of L spine. Pt saw ortho and she has left knee MRI scheduled next week. Pt was told that she may have meniscus tear. Pt denies any swelling. Pt also has some vague bilateral lower extremity neuropathy and she will do EMG soon ARF Pt has recent hi story of ARF with anemia. Pt has normal UO Pt has not followed up with nephrology yet Pt has not done lab yet breast1 Pt has left agustín st nodule on screening mammogram. Pt needs left diagnostic mammo with ultrasound. Pt denies any palpable breast nodule and pain. Pt denies any breast discoloration or discharge hospital1 Pt c/o acute ons et of left knee pain with some left lateral thigh numbness and tingling and some left lower extremity swelling since 10 days ago and she was admitted to hospital due to OWEN and rule out MS. 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 She did undergo MS work up by neurology and result still pending. Pt denies any low back pain Pt states that the main reason she is having difficulty to ambulate is due to left knee pain. Pt denies any speech problem leg weakness. Pt no longer has any leg swelling Pt did have negative duplex venous doppler study left leg. Pt currently ambulate with walker. Pt did have left knee x ray done which showed arthritis. Pt also had negative cardiac echo. She denies any headache. Pt is mildly anemic in hospital Pt denies any bleeding. Pt denies any low back pain Pt denies any sciatica or any loss of bowel or bladder control or saddle area paresthesia. GERD1 Pt has chronic G ERD Pt is on omeprazole Pt failed Pepcid and lower dose of omeprazole HLP Pt has HLP. Pt t franky callaway .Pt denies any myalgia anxiety1 Pt has chronic a nxiety and depression with OCD and mood swings. Pt is on seroquel, prozac, hydroxyzine PRN and abilify and doing ok Pt denies any suicidal or homicidal thought Pt denies any crying spells. renal disease1 Pt has chronic s table renal disease due to combination of DM, obesity, etc. She saw nephrology recently and she will continue current management Pt has normal UO syncope1 Pt suffered a br ief syncope episode during mammogram recently. Pt was told to hold her breath during mammogram and she felt slightly dizzy and passed out for several seconds. Pt denies any head injury. Pt did not have any seizure activity. Pt had witness from mammogram center who did not visualize any seizure activity. Pt was evaluated at ER and she was discharged for syncope. Pt states that she felt slightly dizzy and hot feeling before passing out. Pt denies any speech difficulty, mental status change, speech difficulty or weakness. anxiety1 Pt has chronic a nxiety and depression with OCD and mood swings. Pt sees psychiatry. Pt is on seroquel, prozac, hydroxyzine PRN and abilify 15 mg every other day. Pt denies any suicidal or homicidal thought Pt denies any crying spells Pt denies any delusion disorder. Pt states that she forgets to take abilify frequently since it is every other day. her psychiatrist recently and she needs to get all her meds from tx HLP Pt has HLP Pt rutherford s been taking crestor 40 mg daily and her lipid profile is still high Pt denies any myalgia breast1 Pt has left agustín st asymmetry on screening mammogram Pt denies any breast issue .Pt had diagnostic left mammogram and ultrasound which showed benign finding. mammo Pt has abnormal screening mammo. Pt denies any breast issue Pt denies any palpable breast nodule or pain or redness or warmth anxiety1 Pt has chronic a nxiety and depression with OCD. Pt takes abilify, hydroxyzine, prozac and seroquel for above and doing ok. Pt denies any suicidal or homicidal thought Pt denies any crying spell .Pt has insomnia as well. Her psychiatrist recently and she states that she will need medication refilled soon. Her psychiatrist partner called in 2 months worth but they told her she can not follow up with her psychiatrist partner for future care. osteopenia1 Pt has osteopeni a Pt denies any fracture. mammo Pt had screening mammo done which showed left side asymmetry. Pt denies any palpable breast mass or redness or warmth or pain. HLP Pt has been taki ng crestor for 3 months. Her lipid profile is still high Pt denies any myalgia DM Pt has borderlin e DM Pt takes metformin and doing ok Pt denies any polyuria, polydipsia or GI symptoms HTN Pt has HTN. P ta kes lisinopril and nifedipine and her bp is stable Pt needs refill renal1 Pt has borderlin e low renal function Pt has normal UO Pt saw nephrology and was told to monitor renal function renal Pt has stage III renal disease Pt is being worked up by nephrology. Pt has normal UO HLP Pt has HLP Pt is on crestor Pt denies any myalgia GERD1 Pt has chronic G ERD. Pt had benign EGD 2017. Pt takes omeprazole and she needs refill. She failed pepcid allergy1 Pt has seasonal allergy. Pt doing ok with singulair. Pt need refill Pt denies any sob or wheezing. pt has mild sinus congestion and sneezing HLP Pt has HLP Pt ta kes lipitor and her lipid is borderline high Pt denies any myalgia. HTN Pt has HTN. Pt t akes lisinopril and nifedipine and her bp is stable Pt needs refill DM Pt has DM Pt brendan es metformin and A1c ok Pt needs metformin refilled. CVA1 Pt has history o f CVA s/p loop recorders placement and she needs to get the loop recorder removed. Pt has not heard from cardiology yet Pt denies any chest pain or palpitation or sob renal disease1 Pt has stage III renal disease Pt has normal UO .Pt saw nephrology two days ago and she will do more lab work. Pt has normal UO GERD1 Pt has chronic G ERD. Pt had benign EGD 2017. Pt takes omeprazole and she needs refill allergy1 Pt has seasonal allergy. Pt doing ok with singulair. Pt need refill Pt denies any sob or wheezing folate1 Pt has low folat e and low D HLP Pt has HLP Pt ta kes 80 mg lipitor. her LDL is not at goal DM Pt has DM. pt ta kes metformin and her glucose and A1c are ok. Pt denies any polyuria, polydipsia pt denies any neuropathy renal Pt has low renal and high urine creatine Pt does not take any creatine supplement. Pt has normal UO loop1 Pt has loop haja rder for years and she never had it removed. Pt needs to see cardiology and get it removed. Pt told me loop recorder was negative several years ago. Pt needs MRI of brain but she could not do so due to loop recorder. Pt denies any chest pain or palpitation or sob physical Pt needs annual physical pt has multiple medical conditions. Pt has chronic anxiety and depression Pt takes prozac, seroquel, abilify and vistaril and she sees psychiatrist. Pt denies any suicidal or homicidal thought Pt denies any crying spells. Pt has HLP Pt takes lipitor. Pt denies any myalgia. Pt has HTN, Pt takes lisinopril and nifedipine and her bp is stable. Pt has chronic GERD Pt takes omeprazole and doing ok. Pt has DM ,Pt takes metformin. her glucose is around 120s. Pt also has allergy and he takes singulair and doing ok. Pt has history of stroke several years ago. She did have some aphasia with some weakness which resolved. Pt sees neurology. She has some left upper extremity tremor recently and she saw neurology who ordered MRI of brain but she could not get it done due to loop recorder in place which has been there for 5 years. She initially had loop recorder placed for post CVA work up and the loop recorder was fine but she never followed up with her business ethics professor for loop recorder removal. Pt therefore unable to get MRI of brain done which was ordered by her neurologist for LUE tremor work up. She states that the tremor resolved. 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 Instructions Date Instruction Additional Infor mation No Information Assessments Type Assessment Date assessment Encounter for general adult medi [place] exam w abnormal findings assessment Acute renal failure assessment Lump in the left breast 025 assessment Anemia assessment Generalized Anxiety Disorder Nov assessment GERD w/o esophagitis assessment Allergic rhinitis due to pollen assessment Type 2 diabetes mellitus without complications assessment Mixed hyperlipidemia assessment Essential (primary) hypertension Mental Status Date Cognitive Assessment Orientation - [place] ed to time, place, person, situation.
--- OUTSIDE RECORDS SUMMARY | 2025-01-01 16:58 | XMS_ITS | Referral Summary ---
Author Organization [facility] [address] Address [address] [place] [address] Care Team Providers Care Cardiovascular Sonographer Name Role Phone Jamie Roberts MD Primary Care Provider [phone] Allergies Active Allergy Reactions Criticality Noted Date [...] implantable loop record er 10/31/2017 Overview (10/31/2017): [employer] Reveal Loop Recorder Dx; CVA DOI 10/28/[address] Long[address] [employer] remote monitoring. 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
--- OUTSIDE RECORDS SUMMARY | 2025-01-01 16:58 | XMS_ITS ---
Author Organization [facility] [employer] Address [address] [facility] [address] [place] [address] Care Team Providers Care Radio Sportscaster Name Role Phone Alber Roberts MD Primary Care Provider Carline Rust Unavailable [phone] Allergies Allergen (clinical drug ingredient) Drug/Non Drug [...] 11/20/2024 Encounters Encounter Location Date Provider Diagnosis [facility] [email or web address] [address] [place] [address] 11/20/2024 Carline Naqvi MDD (major depressive disorder), [...] (every other week). Provide suicide hotline number (028). 2. Anxiety - d/c hydroxyzine - not [...] (every other week). Provide suicide hotline number (481). 2. Anxiety - d/c hydroxyzine - not [...] (every other week). Provide suicide hotline number (498). 2. Anxiety - d/c hydroxyzine - not [...] (every other week). Provide suicide hotline number (098). 2. Anxiety - d/c hydroxyzine - not [...] (every other week). Provide suicide hotline number (321). 2. Anxiety - d/c hydroxyzine - not [...] Provider Name:Carline Naqvi , 02/15/2025 02:00:00 PM, [address] [facility] [address], [facility] [address], [place], [address], Progress Notes * XIOMARA CHAIREZB:1965 (58 yo F)Acc No.[id number]:11/20/2024 Patient: MERLE DE SANTIAGOI Provider: BARBIE CANDELARIAHNP :1965 A ge:58 Y S ex:Female Date:11/20/2024 Phone: Address:[address] [place], [place] [id number] Pcp:Alber Roberts MD Subjective: * Chief Complaints: [...] have short term not as good as long term care pharmacist memory and been going on few years [...] for OD and I called for help [place] and I called them 2 nights in [...] plan, or intent- no past attempts no [facility] hospital x 2. Memory status: r [...] (every other week). Provide suicide hotline number (233). 2. Anxiety - d/c hydroxyzine - not [...] NORMAL BP READING DOC F/U NOT RQR, 52248 BEHAV ASSMT W/SCORE & DOCD/STAND INSTRUMENT, G8752 MOST RECENT SYSTOLIC BP < 140MM HG, G8754 MOST RECENT DIASTOLIC BP < 90MM HG, G2211 VISIT COMPLEXITY INHERENT TO ONGOING CARE RELATED TO A PATIENT'S SINGLE, SERIOUS CONDITION OR A COMPLEX CONDITION * Follow Up: 3 Months (Reason: f/u rx) * Billing Information: * Visit Code: 27965 OFFICE OUTPATIENT VISIT 25 MINUTES DETAILED HISTORY AND EXAM/MODERATE MEDICAL DECISION MAKING. * Procedure Codes: 67633 BEHAV ASSMT W/SCORE & DOCD/STAND INSTRUMENT. G8783 NORMAL BP READING DOC F/U NOT RQR. 92805 BEHAV ASSMT W/SCORE & DOCD/STAND INSTRUMENT. G8752 MOST RECENT SYSTOLIC BP < 140MM HG. G8754 MOST RECENT DIASTOLIC BP < 90MM HG. G2211 VISIT COMPLEXITY INHERENT TO ONGOING CARE RELATED TO A PATIENT'S SINGLE, SERIOUS CONDITION OR A COMPLEX CONDITION. * NETWORK INSTALLER Sign off status: Completed true * Provider: GREG CANDELARIA Date: 11/20/2024 Generated for Dayna gonzalez/Genet/Stephanyitting on: 0 01/01/2025 04:58 PM CDT History [...]
--- OUTSIDE RECORDS SUMMARY | 2025-01-01 16:58 | XMS_ITS | Clinical Summary ---
Author Organization [facility] [place] [address] Address [address] [place] [address] Care Team Providers Care Front Office Manager Name Role Phone Jamie Roberts MD Primary Care Provider [phone] Allergies Active Allergy Reactions Criticality Noted Date [...] implantable loop record er 10/31/2017 Overview (10/31/2017): [employer] Reveal Loop Recorder Dx; CVA DOI 10/28/[address] [employer] remote monitoring. 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
--- OUTSIDE RECORDS SUMMARY | 2025-01-01 16:58 | XMS_ITS | Continuity of Care Document ---
Author Organization [employer] [place] Address [address] [place] [address] Phone Care Team Providers Care Safety Professional Name Role Phone Wyatt PT,MPT,ATC, Robert Unavailable Unavai lable Procedures Procedure Date Therapeutic Exercise Neuromuscular Re-Ed Therapeutic Activities Therapeutic Exercise Therapeutic Activities Neuromuscular Re-Ed Therapeutic Exercise Therapeutic Activities Neuromuscular Re-Ed Therapeutic Exercise Therapeutic Activities Neuromuscular Re-Ed Therapeutic Exercise Therapeutic Activities Neuromuscular Re-Ed Therapeutic Exercise Therapeutic Activities Neuromuscular Re-Ed Therapeutic Exercise Therapeutic Activities Neuromuscular Re-Ed Therapeutic Exercise Therapeutic Activities Neuromuscular Re-Ed Therapeutic Exercise Therapeutic Activities Neuromuscular Re-Ed Therapeutic Exercise Therapeutic Activities Neuromuscular Re-Ed Progress Note Therapeutic Exercise Therapeutic Activities Neuromuscular Re-Ed Therapeutic Exercise Therapeutic Activities Neuromuscular Re-Ed Therapeutic Exercise Therapeutic Activities Neuromuscular Re-Ed Therapeutic Exercise Therapeutic Activities Neuromuscular Re-Ed Therapeutic Exercise Therapeutic Activities Neuromuscular Re-Ed Therapeutic Exercise Therapeutic Activities Neuromuscular Re-Ed Therapeutic Exercise Therapeutic Activities Neuromuscular Re-Ed Therapeutic Exercise Therapeutic Activities Neuromuscular Re-Ed Therapeutic Exercise Therapeutic Activities Neuromuscular Re-Ed Therapeutic Exercise Therapeutic Activities Neuromuscular Re-Ed Therapeutic Exercise Therapeutic Activities Neuromuscular Re-Ed PT Evaluation Moderate Complexity Therapeutic Exercise Therapeutic Activities Neuromuscular Re-Ed Advance Directives Directive Yes / No Effective Date File Name No Information Encounters Encounter Description Practice Location Reason(s) For Visit Diagnoses Date Provider Providers Copied on Encounter [facility] [employer], [place], [place], [id number], tel:[phone] [place] No Information 9 [facility]. Referring Provider: Sapphire Vyas, [address] [place], [address]. tel:[phone] [facility] [address], [place], [place], [id number], tel:[phone] [place] Plantar fascial fibromatosisO th symptoms and signs involving the musculoskelet al systemPain in right foot 9 [facility] [place]. Referring Provider: Sapphire Vyas, [address] [place], [address]. tel:[phone] [facility] [employer] [address], [place], [place], [address], tel:[phone] [place] Plantar fascial fibromatosisO th symptoms and signs involving the musculoskelet al systemPain in right foot 9 [place]. Referring Provider: Jl Plata [facility] [place], [address]. tel:[phone] [facility], [place], [place], [address], [place] tel:[phone] [place] Plantar fascial fibromatosisO th symptoms and signs involving the musculoskelet al systemPain in right foot 9 [place]. Referring Provider: Jl Plata [facility] [place], [address]. tel:[phone] [facility], [place], [place], [address], [place] tel:[phone] [place] Plantar fascial fibromatosisO th symptoms and signs involving the musculoskelet al systemPain in right foot 9 [place]. Referring Provider: Jl Plata [facility], [place], [address]. tel:[phone] [facility] [address], [place], [place], [address], [place] tel:[phone] [place] Plantar fascial fibromatosisO th symptoms and signs involving the musculoskelet al systemPain in right foot 9 [place]. Referring Provider: [place], [address]. tel:[phone] [facility], [place], [place], [address], [place] tel:[phone] [place] Plantar fascial fibromatosisO th symptoms and signs involving the musculoskelet al systemPain in right foot 9 [place]. Referring Provider: Jl Plata [facility] [place], [address]. tel:[phone] [facility], [place], [place], [address], [place] tel:[phone] [place] Plantar fascial fibromatosisO th symptoms and signs involving the musculoskelet al systemPain in right foot 9 [place]. Referring Provider: Sapphire Vyas, [address] [place] [address], [address]. tel:[phone] [facility], [place], [place], [address], [place] tel:[phone] [place] Plantar fascial fibromatosisO th symptoms and signs involving the musculoskelet al systemPain in right foot 9 [place]. Referring Provider: Sapphire Vyas, [address] [place] [address], [address]. tel:[phone] [facility], [place], [place], [address], [place] tel:[phone] [place] Plantar fascial fibromatosisO th symptoms and signs involving the musculoskelet al systemPain in right foot 9 [place]. Referring Provider: Sapphire Vyas, [address] [place] [address], [address]. tel:[phone] [facility], [place], [place], [address], [place] tel:[phone] [place] Plantar fascial fibromatosisO th symptoms and signs involving the musculoskelet al systemPain in right foot 9 [place]. Referring Provider: Sapphire Vyas [address] [place] [address], [address]. tel:[phone] [facility], [place], [place], [address], [place] tel:[phone] [place] Plantar fascial fibromatosisO th symptoms and signs involving the musculoskelet al systemPain in right foot Mar- 9 [facility] [place]. Referring Provider: Denise Plata1 [address] [facility] [address], [place], [address]. tel:[phone] [facility], [place], [place], [address], [place] tel:[phone] [place] Plantar fascial fibromatosisO th symptoms and signs involving the musculoskelet al systemPain in right foot 9 [place] April. . Referring Provider: Denise Plata[address] [place] [address] [place], [address]. tel:[phone] [facility], [place], [place], [address], [place] tel:[phone] [place] Plantar fascial fibromatosisO th symptoms and signs involving the musculoskelet al systemPain in right foot 9 [place] April. . Referring Provider: Denise Plata[address] [facility] [address], [place], [address]. tel:[phone] [facility] [address], [place], [place], [address], [place] tel:[phone] [place] Plantar fascial fibromatosisO th symptoms and signs involving the musculoskelet al systemPain in right foot 9 [place] April. . Referring Provider: Denise Plata1 [facility], [place], [address]. tel:[phone] [facility], [place], [place], [address], [place] tel:[phone] [place] Plantar fascial fibromatosisO th symptoms and signs involving the musculoskelet al systemPain in right foot 9 [place]. Referring Provider: Denise Plata1 [facility] [place], [address]. tel:[phone] [facility], [place], [place], [address], [place] tel:[phone] [place] Plantar fascial fibromatosisO th symptoms and signs involving the musculoskelet al systemPain in right foot 5- 9 [place], . Referring Provider: Denise Plata[address] [place] [address], [address]. tel:[phone] [facility], [place], [place], [address], [place] tel:[phone] [place] Plantar fascial fibromatosisO th symptoms and signs involving the musculoskelet al systemPain in right foot 0- 9 [place]. Referring Provider: Sapphire Vyas [address] [place] [address], [address]. tel:[phone] [facility], [place], [place], [address], [place] tel:[phone] [place] Plantar fascial fibromatosisO th symptoms and signs involving the musculoskelet al systemPain in right foot - 9 [place]. Referring Provider: Sapphire Vyas, [address] [place] [address], [address]. tel:[phone] [facility], [place], [place], [address], [place] tel:[phone] [place] Plantar fascial fibromatosisO th symptoms and signs involving the musculoskelet al systemPain in right foot Jan-2 2-201 9 [place]. Referring Provider: Denise Plata[address] [place] [address], [address]. tel:[phone] [facility], [place], [place], [address], [place] tel:[phone] [place] Plantar fascial fibromatosisO th symptoms and signs involving the musculoskelet al systemPain in right foot Apr- 9 [place]. Referring Provider: Sapphire Vyas, [address] [place], [address]. tel:[phone] [employer] [place], [address], [place], [place], [address], [place] tel:[phone] [place] Plantar fascial fibromatosisO symptoms and signs involving the musculoskelet al systemPain in right foot Apr- 9 [place]. Referring Provider: Sapphire Vyas, [address] [place], [address]. tel:[phone] Family History Family Member Type Diagnosis Age At Onset No Information Payers Payer name Insurance type Covered libertarian ID Authororlin color[place](s) [facility] [id number] Social History Type Description Quantity Date Captured Comments Sex Female Smoking Status No Information Chief Complaint And Reason For Visit No Information Reason For Referral Reason For Referral No Information History Of Present Illness Encounter Date Complaint History Of Prese nt Illness No Information Functional Status Date Functional Assessmen t No Information Instructions Date Instruction Additional Infor mation No Information Assessments Type Assessment Date No Information Patient Care Teams Name Effective Dates (start - stop) Status Members No Information
--- OUTSIDE RECORDS SUMMARY | 2025-01-01 16:58 | XMS_ITS ---
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 2. Anxiety - She reports hydroxyzine not [...] (every other week). Provide suicide hotline number (191). 2. Anxiety - She reports hydroxyzine not [...] (every other week). Provide suicide hotline number (679). 2. Anxiety - She reports hydroxyzine not [...] (every other week). Provide suicide hotline number (832). 2. Anxiety - She reports hydroxyzine not [...] Provider Name:Carline Naqvi , 02/15/2025 02:00:00 PM, [address], [facility] [address], [place], [address], Progress Notes * XIOMARA CHAIREZB:1965 (58 yo F)Acc No.[id number]:10/09/2024 Patient: OSMAN DE SANTIAGO Provider: BARBIE CANDELARIAHNP :1965 A ge:58 Y S ex:Female Date:10/09/2024 Phone: Address:[address] [place], [place] [id number] Pcp:Alber Roberts MD Subjective: * Chief Complaints: [...] memory short term not as good as meterman memory and been going on few years [...] for OD and I called for help [place] and I called them 2 nights in [...] Lifeline Y ashleigh T ext HOME to 465021 Y ashleigh N [facility], Suicide & Crisis Hotline 8-530-956-HOPE(1253) Y ashleigh N [facility] Suicide Prevention Lifeline 5312-708-CTIA (9199) Y es, S tep 5: Making the [...] 1 brother, L evel of education: p [employer] schools/Masters/PhD PHD 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 N o, A wv household pets? N o. M iscellaneous: A dvance Care Planning A re you your own decision-maker Y es, D o you have Power of Database Marketing Specialist for Health or Medical? N o. * [...] plan, or intent- no past attempts no [facility] x 2. Memory status: r eported [...] other week). Baudilio fermin suicide hotline number (079). 2. Anxiety - She reports hydroxyzine not [...] 6127 BEHAV ASSMT W/SCORE & DOCD/STAND INSTRUMENT, 64679 BEHAV ASSMT W/SCORE & DOCD/STAND INSTRUMENT, G2211 VISIT COMPLEXITY INHERENT TO ONGOING CARE RELATED TO A PATIENT'S SINGLE, SERIOUS CONDITION OR A COMPLEX CONDITION * Preventive Medicine: * Follow Up: 6 Weeks (Reason: f/u [facility]) * Billing Information: * Visit Code: 71872 OFFICE OUTPATIENT VISIT 25 MINUTES DETAILED HISTORY AND EXAM/MODERATE MEDICAL DECISION MAKING. * Procedure Codes: 61294 BEHAV ASSMT W/SCORE & DOCD/STAND INSTRUMENT. 44922 BEHAV ASSMT W/SCORE & DOCD/STAND INSTRUMENT. G2211 VISIT COMPLEXITY INHERENT TO ONGOING CARE RELATED TO A PATIENT'S SINGLE, SERIOUS CONDITION OR A COMPLEX CONDITION. * TCHING MACHINE OPERATOR Sign off status: Completed true * Provider: GREG CANDELARIA Date: 1 Generated for Dayna gonzalez/Genet/Candelaria on: 0 01/01/2025 04:58 PM CDT History [...] Screening Findings: P ositve Follow-Up for Depression: [facility] treatment assessment, Patient follow-up to return [...] your therapist?: once e very other week [place]le-Suicide Severity Rating Scale Suicide Risk (CSRS-screener) in [...] Agencies to Con tact for Help: Yes 001 Suicide and Crisis Lifeline: Yes Text HOME to 404509: Yes [facility] Network, Suicide & Crisis Hotline 0-795-474-HOPE(5152): Yes [place] Suicide Prevention Lifeline 3219-499-DRDM (7455): Yes Step 5: Making the Environment Safe: [...]
--- OUTSIDE RECORDS SUMMARY | 2025-01-01 16:58 | XMS_ITS | Patient Health Record ---
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 No Tobacco Control (Standard) Question Answer Notes Tobacco use: Nonsmoker Problems Problem Type SNOMED Code ICD Code Onset Dates Problem Status W/U Status Risk Notes Problem Primary insomnia (7145647) Primary insomnia (F51.01) Active confirmed Problem Generalized anxiety disorder (25348971) MACARIO (generalized anxiety disorder) (F41.1) Active confirmed Problem 60618735 Memory loss (R41.3) Active confirmed Problem 516858164 MDD (major depressive disorder), severe (F32.2) Active confirmed Problem Feeling suicidal (033999128) Passive suicidal ideations (R45.851) Active confirmed Vital Signs Heart Rate 85 /min 11/20/2024 Respiratory Rate 15 /min 09/10/2024 Height-cm 167.64 cm 11/20/2024 Blood pressure diastolic 86 mm Hg 11/20/2024 Weight-kg 102.06 kg 11/20/2024 Height 66 in 11/20/2024 Blood pressure systolic 128 mm Hg 11/20/2024 Weight 225 lbs 11/20/2024 BMI 36.31 kg/m2 11/20/2024 Encounters Encounter Location Date Provider Diagnosis [employer] [place] [address] [address] 08/13/2024 Kishore Clubb MDD (major depressive disorder), severe F32.2 ; MACARIO (generalized anxiety disorder) F41.1 ; Primary insomnia F51.01 and Passive suicidal ideations R45.851 [facility] [address] [address] 09/10/2024 Carline Naqvi MDD (major depressive disorder), severe F32.2 ; MACARIO (generalized anxiety disorder) F41.1 ; Primary insomnia F51.01 ; Passive suicidal ideations R45.851 and Memory loss R41.3 [employer] [address] [address] 10/09/2024 Carline Thersuzi MDD (major depressive disorder), severe F32.2 ; MACARIO (generalized anxiety disorder) F41.1 ; Primary insomnia F51.01 ; Passive suicidal ideations R45.851 and Memory loss R41.3 [employer] [place] [employer] [address] [facility] [address] [place] [address] 11/20/2024 Carline Naqvi MDD (major depressive disorder), [...] other week). d. Provide suicide hotline number (558). 2. Anxiety - She reports hydroxyzine not [...] other week). d. Provide suicide hotline number (233). 2. Anxiety - She reports hydroxyzine not [...] other week). d. Provide suicide hotline number (057). 2. Anxiety - She reports hydroxyzine not [...] other week). d. Provide suicide hotline number (841). 2. Anxiety - She reports hydroxyzine not [...] (every other week). Provide suicide hotline number (794). 2. Anxiety - She reports hydroxyzine not [...] (every other week). Provide suicide hotline number (200). 2. Anxiety - She reports hydroxyzine not [...] (every other week). Provide suicide hotline number (609). 2. Anxiety - d/c hydroxyzine - not [...] other week). d. Provide suicide hotline number (126). 2. Anxiety - She reports hydroxyzine not [...] other week). d. Provide suicide hotline number (909). 2. Anxiety - She reports hydroxyzine not [...] (every other week). Provide suicide hotline number (751). 2. Anxiety - She reports hydroxyzine not [...] other week). d. Provide suicide hotline number (285). 2. Anxiety - She reports hydroxyzine not [...] other week). d. Provide suicide hotline number (788). 2. Anxiety - She reports hydroxyzine not [...] (every other week). Provide suicide hotline number (833). 2. Anxiety - She reports hydroxyzine not [...] (every other week). Provide suicide hotline number (746). 2. Anxiety - d/c hydroxyzine - not [...] (every other week). Provide suicide hotline number (396). 2. Anxiety - She reports hydroxyzine not [...] (every other week). Provide suicide hotline number (723). 2. Anxiety - d/c hydroxyzine - not [...] other week). d. Provide suicide hotline number (146). 2. Anxiety - She reports hydroxyzine not [...] (every other week). Provide suicide hotline number (937). 2. Anxiety - d/c hydroxyzine - not [...] seek emergency services. discussed crisis prevention hotline 982. 1. Major Depressive Disorder - Depression and [...] other week). d. Provide suicide hotline number (368). 2. Anxiety - She reports hydroxyzine not [...] other week). d. Provide suicide hotline number (656). 2. Anxiety - She reports hydroxyzine not [...] Name:Carline Naqvi , 02/15/2025 02:00:00 PM, [address] [facility] [address] [facility] [address], [place], [address], Insurance Providers Payer Name Payer Address Payer Phone Subscriber Number Group Number Insured Name Patient Relationship to Insured Coverage Start Date Coverage End Date [facility] [address] [place] [address] [id number] OSMAN CHAIREZ Self - patient is the insured Medical (General) History Medical History History ICD Code hyperlipidemia hypertension diabetes insipidus type 2 CVA 2016 Surgical History Surgery Date(Month/Year) Hand surgery Hospitalization History Reason Date(Month/Year) Patient was last hospitalized in May of 2024.
== END 2025-01-01 14:29 | disposition home or self-care (01) ==
PROVIDERS: PCP Emergency Medicine; Visit Provider Emergency Medicine
DX: N63.20 Unspecified lump in the left breast, unspecified quadrant (principal)
CPT/HCPCS: 76642; 77062; 77066; G0279

== ENCOUNTER 2025-03-19 14:05 | Outpatient (CLI) | payer BC, SELFPAY ==
--- NOTE | ~2025-03-19 | XR_ITS ---
Right foot Technique: AP and lateral views were obtained. Clinical History: Pain Findings: No acute fracture or dislocation is seen. Osseous alignment is anatomic. Joint spaces are p reserved without erosive or degenerative change. Soft tissues are unremarkable. Impression: Unremarkable right foot radiographs. Reviewed, dictated and finalized at [facility]. Impression: Unremarkable right foot radiographs.
--- OUTSIDE RECORDS SUMMARY | 2025-03-19 15:28 | XMS_ITS | Clinical Summary ---
Author Organization [facility] [address] Address [address] [place] [address] Care Team Providers Care Catalyst Manufacturing Operator Name Role Phone Jamie Roberts MD Primary Care Provider [phone] Allergies Active Allergy Reactions Criticality Noted Date [...] implantable loop record er 10/31/2017 Overview (10/31/2017): [employer] Reveal Loop Recorder Dx; CVA DOI 10/28/[address] [employer] remote monitoring. 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
--- OUTSIDE RECORDS SUMMARY | 2025-03-19 15:28 | XMS_ITS | Referral Summary ---
Author Organization [facility] [address] Address [address] [place] [address] Care Team Providers Care Icer Machine Name Role Phone Jamie Roberts MD Primary Care Provider [phone] Allergies Active Allergy Reactions Criticality Noted Date [...] implantable loop record er 10/31/2017 Overview (10/31/2017): [employer] Reveal Loop Recorder Dx; CVA DOI 10/28/[address] Long[address] [employer] remote monitoring. 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
--- OUTSIDE RECORDS SUMMARY | 2025-03-19 15:28 | XMS_ITS | Patient Health Record ---
Author Organization [facility] Address [address] [facility] [address] [place] [address] Care Team Providers Care Global Ceo Name Role Phone Alber Roberts MD Primary Care Provider Carline Rust Unavailable [phone] Kishore Macias Unavailable [phone] Allergies Allergen (clinical drug ingredient) Drug/Non Drug Allergy documented on EMR Reaction Allergy Type Onset Date Status Penicillin Unknown Drug Allergy Active Reason For Referral No Information Medications Medication SIG (Take, Route, Frequency, Duration) Notes Start Date End Date Status Lisinopril 40 MG Oral for 90 Days Not-Taking Rosuvastatin Calcium 40 MG TAKE 1 TABLET BY MOUTH ONCE DAILY Oral for 90 Days Active FLUoxetine HCl 20 MG 1 tablet Orally Once a day for 90 days NO PA needed Active Montelukast Sodium 10 MG Oral for 90 Days Active metFORMIN HCl 500 MG 1 tablet with a meal Oral twice a day for 90 days Active hydrOXYzine HCl 50 MG 1 tablet Oral twice a day for 30 days As needed increased on 08/13/24 Not-Taking Omeprazole 40 MG TAKE 1 CAPSULE BY MOUTH ONCE DAILY BEFORE A MEAL Oral for 90 Days Active NIFEdipine ER Osmotic Release 60 MG TAKE 1 TABLET BY MOUTH ONCE DAILY Oral for 90 Days Active FLUoxetine HCl 40 MG 1 capsule Oral Once a day for 90 days Active Calcium Active buPROPion HCl ER (XL) 150 MG 1 tablet Orally Once a day for 90 days Active busPIRone HCl 10 MG 1 tablet Orally Twice a day for 90 days d/c 5 mg dose 05/16/2025 Active Aspirin 325 MG 1 tablet Orally Once a day Active ARIPiprazole 10 MG 1 tablet Oral Once a day for 90 days Active Vitamin D3 Active Social History Tobacco Use: Social History Observation Description Date Details (start date - stop date) Never Smoker NA - NA Sex Assigned At : Social History Observation Description Sex Assigned At Female Household Question Answer Notes Marital status: single Number of adults in household: 2 LIVES WITH MOTHER Number of children in household: 0 Level of education: 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 No Tobacco Control (Standard) Question Answer Notes Tobacco use: Nonsmoker Problems Problem Type SNOMED Code ICD Code Onset Dates Problem Status W/U Status Risk Notes Problem Primary insomnia (5768881) Primary insomnia (F51.01) Active confirmed Problem Screening for cardiovascular system disease (189695811) Encounter for screening for cardiovascular disorders (Z13.6) Active confirmed Problem 367098903 Encounter for screening for depression (Z13.31) Active confirmed Problem Generalized anxiety disorder (81274155) MACARIO (generalized anxiety disorder) (F41.1) Active confirmed Problem 472445572 MDD (major depressive disorder), recurrent episode, mild (F33.0) Active confirmed Problem 49859385 Memory loss (R41.3) Active confirmed Problem 305029844 MDD (major depressive disorder), severe (F32.2) Active confirmed Problem Passive suicidal ideations (R45.851) Active confirmed Vital Signs Heart Rate 83 /min 02/15/2025 Respiratory Rate 15 /min 09/10/2024 Height-cm 167.64 cm 02/15/2025 Blood pressure diastolic 82 mm Hg 02/15/2025 Weight-kg 102.51 kg 02/15/2025 Height 66 in 02/15/2025 Blood pressure systolic 136 mm Hg 02/15/2025 Weight 226 lbs 02/15/2025 BMI 36.47 kg/m2 02/15/2025 Encounters Encounter Location Date Provider Diagnosis [facility], [facility] [address] [facility] [address] [place] [address] 08/13/2024 Kishore Macias MDD (major depressiv e disorder), severe F32.2 ; MACARIO (generalized anxiety disorder) F41.1 ; Primary insomnia F51.01 and Passive suicidal ideations R45.851 [facility] [address] [facility] [address] [place] [address] 09/10/2024 Carline Naqvi MDD (major depressiv e disorder), severe F32.2 ; MACARIO (generalized anxiety disorder) F41.1 ; Primary insomnia F51.01 ; Passive suicidal ideations R45.851 and Memory loss R41.3 [facility] [place] [address] [place] [address] 10/09/2024 Carline Naqvi MDD (major depressiv e disorder), severe F32.2 ; MACARIO (generalized anxiety disorder) F41.1 ; Primary insomnia F51.01 ; Passive suicidal ideations R45.851 and Memory loss R41.3 [facility] [place] [address] [place] [address] 11/20/2024 Carline Naqvi MDD (major depressiv e disorder), severe F32.2 ; MACARIO (generalized anxiety disorder) F41.1 ; Primary insomnia F51.01 ; Passive suicidal ideations R45.851 and Memory loss R41.3 [facility] [place] [address] [place] [address] 02/15/2025 Carline Naqvi MACARIO (generalized anxiety disorder) F41.1 ; MDD (major depressive disorder), recurrent episode, mild F33.0 ; Primary insomnia F51.01 ; Passive suicidal ideations R45.851 ; Memory loss R41.3 ; Negative depression screening Z13.31 ; Encounter for screening for depression Z13.31 and Encounter for screening for cardiovascular disorders Z13.6 Assessments Encounter Date Diagnosis (ICD Code) Assessment [...] other week). d. Provide suicide hotline number (056). 2. Anxiety - She reports hydroxyzine not [...] other week). d. Provide suicide hotline number (569). 2. Anxiety - She reports hydroxyzine not [...] other week). d. Provide suicide hotline number (366). 2. Anxiety - She reports hydroxyzine not [...] effects including loss of libido, increased suicidal thoughts/behavior s in children and young adults, and serotonin [...] other week). d. Provide suicide hotline number (009). 2. Anxiety - She reports hydroxyzine not [...] effects including loss of libido, increased suicidal thoughts/behavior s in children and young adults, and serotonin [...] (every other week). Provide suicide hotline number (709). 2. Anxiety - She reports hydroxyzine not [...] effects including loss of libido, increased suicidal thoughts/behavior s in children and young adults, and serotonin [...] (every other week). Provide suicide hotline number (741). 2. Anxiety - She reports hydroxyzine not [...] effects including loss of libido, increased suicidal thoughts/behavior s in children and young adults, and serotonin [...] (every other week). Provide suicide hotline number (610). 2. Anxiety - d/c hydroxyzine - not [...] effects including loss of libido, increased suicidal thoughts/behavior s in children and young adults, and serotonin [...] potential neurotoxicity and interactions with prescribed medications. 02/15/2025 MACARIO (generalized anxiety disorder) (ICD-10 - F41.1) Learning About Generalized Anxiety Disorder material was published, Generalized Anxiety Disorder: Care Instructions material was published, Learning About Anxiety Disorders material was published, Learning About Transcranial Magnetic Stimulation (TMS) material was published 1. 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 thinks of past Provide suicide hotline number (247). 2. Anxiety - conitnue therapy continues buspar, increase to 10mg 2x/day reported OCD thoughts no behaviors hx in past improved educated on all rx 3. Vitamin D [...] effects including loss of libido, increased suicidal thoughts/behavior s in children and young adults, and serotonin [...] potential neurotoxicity and interactions with prescribed medications. 02/15/2025 MDD (major depressive disorder), recurrent episode, mild (ICD-10 - F33.0) 1. 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 thinks of past Provide suicide hotline number (794). 2. Anxiety - conitnue therapy continues buspar, increase to 10mg 2x/day reported OCD thoughts no behaviors hx in past improved educated on all rx 3. Vitamin D [...] effects including loss of libido, increased suicidal thoughts/behavior s in children and young adults, and serotonin [...] potential neurotoxicity and interactions with prescribed medications. 02/15/2025 Primary insomnia (ICD-10 - F51.01) Learning About Sleeping Well material was published 1. 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 thinks of past Provide suicide hotline number (452). 2. Anxiety - conitnue therapy continues buspar, increase to 10mg 2x/day reported OCD thoughts no behaviors hx in past improved educated on all rx 3. Vitamin D [...] effects including loss of libido, increased suicidal thoughts/behavior s in children and young adults, and serotonin [...] (every other week). Provide suicide hotline number (994). 2. Anxiety - She reports hydroxyzine not [...] effects including loss of libido, increased suicidal thoughts/behavior s in children and young adults, and serotonin [...] (every other week). Provide suicide hotline number (914). 2. Anxiety - d/c hydroxyzine - not [...] effects including loss of libido, increased suicidal thoughts/behavior s in children and young adults, and serotonin [...] other week). d. Provide suicide hotline number (779). 2. Anxiety - She reports hydroxyzine not [...] other week). d. Provide suicide hotline number (283). 2. Anxiety - She reports hydroxyzine not [...] effects including loss of libido, increased suicidal thoughts/behavior s in children and young adults, and serotonin [...] other week). d. Provide suicide hotline number (476). 2. Anxiety - She reports hydroxyzine not [...] other week). d. Provide suicide hotline number (095). 2. Anxiety - She reports hydroxyzine not [...] effects including loss of libido, increased suicidal thoughts/behavior s in children and young adults, and serotonin [...] (every other week). Provide suicide hotline number (899). 2. Anxiety - She reports hydroxyzine not [...] effects including loss of libido, increased suicidal thoughts/behavior s in children and young adults, and serotonin [...] (every other week). Provide suicide hotline number (654). 2. Anxiety - d/c hydroxyzine - not [...] effects including loss of libido, increased suicidal thoughts/behavior s in children and young adults, and serotonin [...] potential neurotoxicity and interactions with prescribed medications. 02/15/2025 Passive suicidal ideations (ICD-10 - R45.851) discussed suicide safety plan and crisis hotline number and when to seek emergency services. , Suicidal Thoughts in a Family Member: Care Instructions material was published, Learning About Making a Suicide Safety Plan material was published, Learning About How to Get Help During a Mental Health Crisis material was published 1. 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 thinks of past Provide suicide hotline number (971). 2. Anxiety - conitnue therapy continues buspar, increase to 10mg 2x/day reported OCD thoughts no behaviors hx in past improved educated on all rx 3. Vitamin D [...] effects including loss of libido, increased suicidal thoughts/behavior s in children and young adults, and serotonin [...] potential neurotoxicity and interactions with prescribed medications. 02/15/2025 Memory loss (ICD-10 - R41.3) 1. 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 thinks of past Provide suicide hotline number (239). 2. Anxiety - conitnue therapy continues buspar, increase to 10mg 2x/day reported OCD thoughts no behaviors hx in past improved educated on all rx 3. Vitamin D [...] effects including loss of libido, increased suicidal thoughts/behavior s in children and young adults, and serotonin [...] (every other week). Provide suicide hotline number (591). 2. Anxiety - She reports hydroxyzine not [...] effects including loss of libido, increased suicidal thoughts/behavior s in children and young adults, and serotonin [...] (every other week). Provide suicide hotline number (292). 2. Anxiety - d/c hydroxyzine - not [...] effects including loss of libido, increased suicidal thoughts/behavior s in children and young adults, and serotonin [...] other week). d. Provide suicide hotline number (590). 2. Anxiety - She reports hydroxyzine not [...] effects including loss of libido, increased suicidal thoughts/behavior s in children and young adults, and serotonin [...] (every other week). Provide suicide hotline number (634). 2. Anxiety - d/c hydroxyzine - not [...] effects including loss of libido, increased suicidal thoughts/behavior s in children and young adults, and serotonin [...] potential neurotoxicity and interactions with prescribed medications. 02/15/2025 Negative depression screening (ICD-10 - Z13.31) 1. 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 thinks of past Provide suicide hotline number (985). 2. Anxiety - conitnue therapy continues buspar, increase to 10mg 2x/day reported OCD thoughts no behaviors hx in past improved educated on all rx 3. Vitamin D [...] effects including loss of libido, increased suicidal thoughts/behavior s in children and young adults, and serotonin [...] potential neurotoxicity and interactions with prescribed medications. 02/15/2025 Encounter for screening for depression (ICD-10 - Z13.31) 1. 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 thinks of past Provide suicide hotline number (887). 2. Anxiety - conitnue therapy continues buspar, increase to 10mg 2x/day reported OCD thoughts no behaviors hx in past improved educated on all rx 3. Vitamin D [...] effects including loss of libido, increased suicidal thoughts/behavior s in children and young adults, and serotonin [...] potential neurotoxicity and interactions with prescribed medications. 02/15/2025 Encounter for screening for cardiovascular disorders (ICD-10 - Z13.6) 1. 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 thinks of past Provide suicide hotline number (062). 2. Anxiety - conitnue therapy continues buspar, increase to 10mg 2x/day reported OCD thoughts no behaviors hx in past improved educated on all rx 3. Vitamin D [...] effects including loss of libido, increased suicidal thoughts/behavior s in children and young adults, and serotonin [...] seek emergency services. discussed crisis prevention hotline 988. 1. Major Depressive Disorder - Depression and [...] other week). d. Provide suicide hotline number (382). 2. Anxiety - She reports hydroxyzine not [...] Bupropion Extended Release Oral Tablet (BUPROPION HCL EXTENDED-RELEAS E (ANTIDEPRESSANT ) - ORAL) material was published, Hydroxyzine Oral [...] other week). d. Provide suicide hotline number (099). 2. Anxiety - She reports hydroxyzine not [...] effects including loss of libido, increased suicidal thoughts/behavior s in children and young adults, and serotonin [...] potential neurotoxicity and interactions with prescribed medications. 02/15/2025 Other Electronic Prior Authorization was requested for FLUoxetine HCl 20 MG Capsule. Provider can order medication once approval received., Learning About Depression Screening material was published, Learning About Depression material was published, Depression Treatment: Care Instructions material was published, Learning About Mood Disorders material was published, Suicidal Thoughts and Behavior: Care Instructions material was published 1. 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 thinks of past Provide suicide hotline number (383). 2. Anxiety - conitnue therapy continues buspar, increase to 10mg 2x/day reported OCD thoughts no behaviors hx in past improved educated on all rx 3. Vitamin D [...] effects including loss of libido, increased suicidal thoughts/behavior s in children and young adults, and serotonin [...] Next Appt Details Provider Name:Carline Naqvi , 05/17/2025 01:45:00 PM, [address] [facility] [address] [facility] [address], [place], [address], Insurance Providers Payer Name Payer Address Payer Phone Subscriber Number Group Number Insured Name Patient Relationship to Insured Coverage Start Date Coverage End Date [facility] [address] [place] [address] [id number] OSMAN CHAIREZ Self - patient is the insured Medical (General) History Medical History History ICD Code hyperlipidemia hypertension diabetes insipidus type 2 CVA 2016 Surgical History Surgery Date(Month/Year) Hand surgery Hospitalization History Reason Date(Month/Year) Patient was last hospitalized in May of 2024.
== END 2025-03-19 14:06 | disposition home or self-care (01) ==
PROVIDERS: PCP Emergency Medicine; Visit Provider Emergency Medicine
DX: M79.671 Pain in right foot (principal)
CPT/HCPCS: 73620

== ENCOUNTER 2025-03-29 11:25 | Outpatient (CLI) | payer BC, SELFPAY ==
--- NOTE | ~2025-03-29 | XR_ITS ---
Left Knee Technique: AP and lateral views were obtained. Clinical History: Pain Findings: No fracture or dislocation is seen. Osseous alignment is anatomic. Joint spaces are preserv ed with mild degenerative spurring. Soft tissues are unremarkable. No joint effusion is seen. Impression: Mild degenerative spurring about the knee. Reviewed, dictated and finalized at location . Impression: Mild degenerative spurring about the knee.
== END 2025-03-29 11:26 | disposition home or self-care (01) ==
PROVIDERS: PCP Emergency Medicine; Visit Provider Emergency Medicine
DX: M25.762 Osteophyte, left knee (principal)
CPT/HCPCS: 73560